=== PATIENT | male | born 1955 | race Caucasian/White ===

== ENCOUNTER 2018-10-29 21:16 | Inpatient (IN) | END 2018-11-04 16:00 | disposition home or self-care (01) | DRG 291 ==

== ENCOUNTER 2019-01-08 21:37 | Inpatient (IN) | payer MEDICARE, OTHER ==
[~2019-01-08] VITALS: Ht 188 cm; Wt 74.1 kg
[~2019-01-08 21:37] MED LIST: AMLO2.5T78 PO; ASPI-817 PO; ATOR-2 PO; Accu-Chek XX; CARV25TA79 PO; HYDR-3672 PO; IPRA3AMP29 HHN; ISOS10TA2 PO; NOVO3I SC; Nicotine (14 Mg/24 Hr) TRANSDERM; PANT40TA4 PO; TICA90TA PO
[2019-01-08] MEDS ORDERED: NITROGLYCERIN 50 MG/D5W (PMX) 250 ML IV STA (21:42)
[2019-01-08] MEDS ORDERED: FUROSEMIDE 40 MG INJ IV STA (21:42)
--- NOTE | 2019-01-08 23:27 | HP ---
Date/Time of Note Date/Time of Note DATE: 01/08/19 TIME: 23:18 Assessment/Plan VTE Prophylaxis SCD applied (from Nsg): Yes Pharmacological prophylaxis: LMWH Lines/Catheters IV Catheter Type (from Nrsg): Saline Lock Central line still needed: No Urinary Cath still in place: No Reason Cath still needed: urinary retention Assessment/Plan Assessment/Plan 1. Pulmonary edema- IHD angina; s/p acute stemi; V-fib cardiac arrest: s/p shock, amiodarone and epinephrine in the field before ROSC-PTCA with stenting of mid LCx 2. ZBIGNIEW -IV ( Hx of contrast use received for cardiac cath .Judiciouse fluid management. Creatinine decreased from 1.9 to 2.6 3. Severe lactic acidosis with the hx of elevation and now the level is 7: Secondary to copd exacerbation, uti. 4. IHD angina; s/p acute stemi; V-fib cardiac arrest: 06/2018;s/p cardiogenic shock, amiodarone and epinephrine in the field before ROSC-PTCA with stenting of mid LCxS/p intubation for cardiac arrest and respiratory failure and successful extubation 5. Hypertension: Continue nitro drip and BP meds. Adjust as needed 6. COPD- history of heavy smoking and current smoking a pack/day. nicotine addiction. 7. S/P episode of pulmonary edema 07/23/18 at about 4pm with resuscitative measures(iv lasix,02; BIPAP,solumedrol) improved. His d-dimer was elevated too. Today's hyperglycemia is a result of yesterdays solumedrol injection. 8.Dyslipidemia 9.Anoxic encephalopathy 10.Aspiration pneumonia? 11.BPH 12.Liver cirrhosis(alcoholic). 13.PAD with the hx of stenting of arteries of extremities 14.ED 15.ATN with creatinine level of more than 6; came down to 2.6; the last one as outpatient 1,9 in the office 3 sdays ago. decrease of creatinine 16.Constipation 17.Liver cirrhosis, probably alcoholic 18.Memory impairment 19.S/P icd implantation on left s/c area. 20.Right more than pleural effusion. Planned thoracentesis. 21. Incomplete data. Result Diagram: 01/08/19214001/08/192140 Results 24hrs Laboratory Tests Test 01/08/19 21:41 01/08/19 21:42 01/08/19 21:46 White Blood Count 12.6 #H Red Blood Count 3.90 L Hemoglobin 12.1 L Hematocrit 39.6 L Mean Corpuscular Volume 101.5 H Mean Corpuscular Hemoglobin 31.0 Mean Corpuscular 30.6 L Hemoglobin Concent Red Cell Distribution Width 14.1 Platelet Count 314 # Mean Platelet Volume 10.2 Immature Granulocytes % 0.600 H Neutrophils % 61.2 Lymphocytes % 27.3 Monocytes % 7.4 Eosinophils % 2.6 Basophils % 0.9 Nucleated Red Blood Cells % 0.0 Immature Granulocytes # 0.080 H Neutrophils # 7.7 H Lymphocytes # 3.4 H Monocytes # 0.9 Eosinophils # 0.3 Basophils # 0.1 Nucleated Red Blood Cells # 0.0 Prothrombin Time 12.8 Prothrombin Time Ratio 1.0 INR International 0.95 Normalized Ratio Activated 26.3 Partial Thromboplast Time Sodium Level 143 Potassium Level 4.7 Chloride Level 106 Carbon Dioxide Level 19 L Anion Gap 18 H Blood Urea Nitrogen 31 H Creatinine 2.65 H Est Glomerular Filtrat 24 L Rate mL/min Glucose Level 237 H Calcium Level 9.9 Total Bilirubin 0.3 Direct Bilirubin 0.00 Indirect Bilirubin 0.3 Aspartate Amino 26 Transf (AST/SGOT) Alanine 36 Aminotransferase (ALT/SGPT) Alkaline Phosphatase 259 H Troponin I 0.074 B-Type Natriuretic Peptide 4920 H Total Protein 7.1 Albumin 4.1 Globulin 3.00 Albumin/Globulin Ratio 1.36 Ethyl Alcohol Level < 10.0 H Blood Gas Specimen Source Blood arterial Arterial Blood Date Drawn 01/08/2019 10:50:13 PM Arterial Blood pH 7.362 (Temp corrected) Arterial Blood pCO2 38.0 (Temp correct) Arterial Blood pO2 277.5 H (Temp corrected) Arterial Blood HCO3 21.1 L Arterial Blood Base Excess -3.9 L Arterial Blood 99.2 H Oxygen Saturation Troy Test ACCEPTAB Arterial Blood Gas Right Radial Puncture Site Arterial 0.3 Blood Carboxyhemoglobin Arterial Blood 0.3 Methemoglobin Blood Gas A-a O2 36.3 H Differential Oxyhemoglobin Percent 98.6 Blood Gas Temperature 37.0 Blood Gas Respiration Rate 16.0 Blood Gas Actual 22 Respiration Rate Blood Gas Modality MASK - BIPAP FiO2 50.0 Blood Gas Pressure Support 10 Blood Gas IPAP/EPAP Ratio 15/ Blood Gas Notified Whom KM Blood Gas Notified Time 01/08/2019 11:04:02 PM POC Venous Lactate 7.1 *H HPI/ROS Admit Date/Time Admit Date/Time severe sob. ROS Subjective hx not possible: pt critical, other (getting tired even when talking.) Constitutional: diaphoresis; No no complaints, No improved, No chills, No disoriented, No fatigue, No febrile, No nausea, No poor po, No weight change, No other PMH/Family/Social Past Medical History Medical History: angina, colitis, congestive heart failure, coronary artery disease, diabetes, diverticulitis, GERD, GI bleed, high cholesterol, hypertension, irritable bowel syndrome, pancreatitis, peptic ulcer disease, urinary tract infection Medications Current Medications Nitroglycerin/ Dextrose 250 ml @ 12 mls/hr ONCE STAT IV Last administered on 01/08/19at 21:56; Admin Dose 12 MLS/HR; Start 01/08/19 at 21:42; Stop 01/09/19 at 18:31 Coded Allergies: No Known Allergy (Unverified , 01/08/19) Past Surgical History Past Surgical Hx: angioplasty, other (s/p icd implantation.) Family History Significant Family History: COPD, diabetes Social History Alcohol Use: occasionally Smoking Status: Current every day smoker Drug Use: none Exam/Review of Systems Vital Signs Vitals Vital Signs Date Temp Pulse Resp B/P (MAP) Pulse Ox O2 O2 Flow FiO2 Time Delivery Rate 01/08/19 68 100 80 23:03 01/08/19 18 161/89 Room Air 23:00 (113) 01/08/19 96.7 21:49 Exam Constitutional: alert, oriented, well developed, distress, frail; No non-verbal, No other Psych: anxiety, confusion; No no complaints, No nl mood/affect, No depression, No suicidal, No other Head: normocephalic, atraumatic; No lacerations, No hematomas, No other Eyes: EOMI, nl lids, PERRL; No nl conjunctiva, No nl sclera, No icteric, No fundi, disc, No other ENMT: nl nasal mucosa & septum, mucosa pink and moist; No nl external ears & nose, No nl lips & teeth, No intubated, No tympanic membranes, No other Neck: jvd, bruits, nuchal rigidity; No supple, No non-tender, No masses, No thyromegaly, No other Respiratory: normal air movement, congested cough, crackles/rales, diminished breath sounds Cardiovascular: nl pulses, bruits, jugular venous distention (JVD), murmurs/extra sounds, systolic murmur, other (s/p left sided icd implantation.); No regular rate and rhythm, No diastolic murmur, No edema, No gallop, No irregular rhythm, No rub, No S3, No S4 Gastrointestinal: soft, bowel sounds, distended, hepatomegaly; No nl liver, spleen, No non-tender, No ascites, No firm, No mass, No rebound or guarding, No splenomegaly, No surgical scars, No tender, No other Genitourinary - Male: nl penis, nl scrotum; No CVA tenderness, No discharge, No other Musculoskeletal: joint tenderness, muscle tone, muscle weakness; No nl extremities to inspection, No nl gait and stance, No range of motion, No spine non-tender, No swelling, No other Extremities: normal pulses; No calf tenderness, No cyanosis, No clubbing, No edema, No pitting pedal edema, No palpable cord, No tenderness, No other ELBERT DIANA MD Jan 08, 2019 23:27
[2019-01-08] MEDS ORDERED: AMPICILLIN/SULB 1.5GM/NS (PMX) 50 ML IVPB SCH (23:30)
[2019-01-09] VITALS (8 sets, daily range): BP systolic 126–156; BP diastolic 60–72; PULSE 61–72; RESP 19; Ht 188 cm; Wt 74.1 kg
[2019-01-09] MEDS ORDERED: NICOTINE (14 MG/24 HR) PATCH TRANSDERM ONE
[2019-01-09] MEDS ORDERED: DEXTROSE 50% 50 ML SYRINGE IV PRN ×2 (00:30)
[2019-01-09] MEDS ORDERED: GLUCAGON 1 MG INJ IM PRN (00:30)
[2019-01-09] MEDS ORDERED: GLUCOSE GEL 15 GRAM TUBE PO PRN ×2 (00:30)
[2019-01-09] MEDS ORDERED: GLUCOSE GEL 15 GRAM TUBE BUCCAL PRN (00:30)
[2019-01-09] MEDS: ALBUTEROL/IPRATROPIUM (NEB) 3 ML AMP HHN SCH ×3 (00:30→20:28)
[2019-01-09] MEDS: ENOXAPARIN 40 MG/0.4 ML SYG SC SCH (00:46)
[2019-01-09] MEDS ORDERED: ATORVASTATIN 80 MG TAB PO ONE (01:00)
--- NOTE | 2019-01-09 03:31 | ERD ---
ER Documentation Chief Complaint Chief Complaint BIB RA from home for respiratory distress HPI This is a 63-year-old male brought in by rescue from home for respiratory distress. Apparently at 6 PM he was in his normal state of health and then started developing shortness of breath. Over the course of 2 hours he became severely worse. Patient was diaphoretic. He has a history of cardiac disease but denies any chest pain. Recent STEMI in the past 6 months. No nausea no vomiting no fevers no chills. Does have orthopnea and positive for dyspnea on exertion as well. ROS All systems reviewed and are negative except as per history of present illness. Medications Home Meds Active Scripts Insulin Aspart* (Novolog Insulin Pen*) 100 Unit/Ml Soln, 0 UNIT SC WITH MEALS BEDTIME for 30 Days, #10 Prov:ELBERT DIANA MD 07/30/18 Pantoprazole* (Pantoprazole*) 40 Mg Tablet., 40 MG PO DAILY@06 for 30 Days, #30 Prov:ELBERT DIANA MD 07/30/18 [Accu-Chek] 1 EA EA No Conflict Check, 1 EA XX 02 for 30 Days, #90 Prov:ELBERT DIANA MD 07/30/18 Aspirin* (Aspirin* EC) 81 Mg Tablet., 81 MG PO DAILY for 30 Days, #30 Prov:ELBERT DIANA MD 07/30/18 Isosorbide Dinitrate* (Isordil*) 10 Mg Tablet, 30 MG PO TID for 30 Days, #30 TAB Prov:ELBERT DIANA MD 07/30/18 Hydralazine Hcl* (Apresoline*) 50 Mg Tab, 100 MG PO TID for 30 Days, #60 TAB Prov:ELBERT DIANA MD 07/30/18 Carvedilol* (Carvedilol*) 25 Mg Tablet, 50 MG PO BID for 30 Days, #60 TAB Prov:ELBERT DIANA MD 07/30/18 Atorvastatin* (Atorvastatin*) 80 Mg Tablet, 80 MG PO DAILY@21 for 30 Days, #60 TAB Prov:ELBERT DIANA MD 07/30/18 Amlodipine Besylate* (Amlodipine Besylate*) 2.5 Mg Tablet, 2.5 MG PO DAILY for 30 Days, #60 TAB Prov:ELBERT DIANA MD 07/30/18 Ticagrelor* (Brilinta*) 90 Mg Tablet, 90 MG PO BID for 30 Days, #30 TAB Prov:ELBERT DIANA MD 07/30/18 [Nicotine (14 Mg/24 Hr)] 1 PATCH PATCH No Conflict Check, 1 PATCH TRANSDERM DAILY for 30 Days, #30 Prov:ELBERT DIANA MD 07/30/18 Ipratropium-Albuterol (Ipratropium-Albuterol) 0.5-3 Mg/3 Ml Ampul.neb, 3 ML HHN Q6HWA RESP THERAPY for 30 Days, #90 Prov:ELBERT DIANA MD 07/30/18 Allergies Allergies: Coded Allergies: No Known Allergy (Unverified , 01/08/19) PMhx/Soc History of Surgery: Yes (angioplasty in last january) Anesthesia Reaction: No Hx Neurological Disorder: No Hx Respiratory Disorders: Yes Hx Cardiac Disorders: Yes (htn chf mi) Hx Psychiatric Problems: No Hx Miscellaneous Medical Probl: No Hx Alcohol Use: Yes Hx Substance Use: No Hx Tobacco Use: No Smoking Status: Current every day smoker Physical Exam Vitals Vital Signs Date Temp Pulse Resp B/P (MAP) Pulse Ox O2 O2 Flow FiO2 Time Delivery Rate 01/09/19 63 16 151/92 99 Room Air 00:30 (111) BIPAP 01/08/19 68 16 153/90 98 BIPAP 23:30 (111) 01/08/19 68 100 80 23:03 01/08/19 70 18 161/89 100 Room Air 23:00 (113) 01/08/19 78 26 193/122 100 Room Air 22:30 (145) 01/08/19 88 26 193/129 100 BIPAP 22:21 (150) 01/08/19 85 30 224/134 100 BIPAP 22:00 (164) 01/08/19 96.7 84 25 93 21:49 01/08/19 Non 21:49 Rebreather 01/08/19 86 92 80 21:40 Physical Exam Const: No acute distress Head: Atraumatic Eyes: Normal Conjunctiva ENT: Normal External Ears, Nose and Mouth. Neck: Full range of motion. No meningismus. Resp: Clear to auscultation bilaterally Cardio: Regular rate and rhythm, no murmurs Abd: Soft, non tender, non distended. Normal bowel sounds Skin: No petechiae or rashes Back: No midline or flank tenderness Ext: No cyanosis, or edema Neur: Awake and alert Psych: Normal Mood and Affect Result Diagram: 01/08/19214001/08/192140 Results 24 hrs Laboratory Tests Test 01/08/19 21:41 01/08/19 21:42 01/08/19 21:46 01/09/19 00:00 White Blood 12.6 10^3/ul Count Red Blood Count 3.90 10^6/ul Hemoglobin 12.1 g/dl Hematocrit 39.6 % Mean Corpuscular 101.5 fl Volume Mean Corpuscular 31.0 pg Hemoglobin Mean Corpuscular 30.6 g/dl Hemoglobin Sylvia nt Red Cell 14.1 % Distribution Width Platelet Count 314 10^3/UL Mean Platelet 10.2 fl Volume Immature 0.600 % Granulocytes % Neutrophils % 61.2 % Lymphocytes % 27.3 % Monocytes % 7.4 % Eosinophils % 2.6 % Basophils % 0.9 % Nucleated Red 0.0 /100WBC Blood Cells % Immature 0.080 10^3/ul Granulocytes # Neutrophils # 7.7 10^3/ul Lymphocytes # 3.4 10^3/ul Monocytes # 0.9 10^3/ul Eosinophils # 0.3 10^3/ul Basophils # 0.1 10^3/ul Nucleated Red 0.0 10^3/ul Blood Cells # Prothrombin Time 12.8 Sec Prothrombin Time 1.0 Ratio INR 0.95 International Normalized Ratio Activated 26.3 Sec Partial Thrombop last Time Sodium Level 143 mmol/L Potassium Level 4.7 mmol/L Chloride Level 106 mmol/L Carbon Dioxide 19 mmol/L Level Anion Gap 18 Blood Urea 31 mg/dl Nitrogen Creatinine 2.65 mg/dl Est Glomerular 24 mL/min Filtrat Rate mL/min Glucose Level 237 mg/dl Calcium Level 9.9 mg/dl Magnesium Level 2.1 mg/dl Iron Level 71 ug/dl Total Iron 246 ug/dl Binding Capacity Percent Iron 29 % SAT Saturation Total Bilirubin 0.3 mg/dl Direct Bilirubin 0.00 mg/dl Indirect 0.3 mg/dl Bilirubin Aspartate Amino 26 IU/L Transf (AST/SGOT ) Alanine 36 IU/L Aminotransferase (ALT/SGPT) Alkaline 259 IU/L Phosphatase Troponin I 0.074 ng/ml B-Type 4920 PG/ML Natriuretic Peptide Total Protein 7.1 g/dl Albumin 4.1 g/dl Globulin 3.00 g/dl Albumin/Globulin 1.36 Ratio Amylase Level < 30 U/L Lipase 109 U/L Thyroid 1.330 MIU/L Stimulating Hormone (TSH) Ethyl Alcohol < 10.0 mg/dl Level Blood Gas Blood arterial Specimen Source Arterial Blood 01/08/2019 10:50: Date Drawn 13 PM Arterial Blood 7.362 pH (Temp corrected) Arterial Blood 38.0 mmhg pCO2 (Temp correct) Arterial Blood 277.5 mmHG pO2 (Temp corrected) Arterial Blood 21.1 mmol/L HCO3 Arterial Blood -3.9 mmol/L Base Excess Arterial Blood 99.2 mmHG Oxygen Saturatio n Troy Test ACCEPTAB Arterial Blood Right Radial Gas Puncture Site Arterial 0.3 % Blood Carboxyhem oglobin Arterial Blood 0.3 % Methemoglobin Blood Gas A-a O2 36.3 mmHg Differential Oxyhemoglobin 98.6 % Percent Blood Gas 37.0 C Temperature Blood Gas 16.0 Respiration Rate Blood Gas Actual 22 Respiration Rate Blood Gas MASK - BIPAP Modality FiO2 50.0 % Blood Gas 10 Pressure Support Blood Gas 15/5 IPAP/EPAP Ratio Blood Gas Notified Whom Blood Gas 01/08/2019 11:04: Notified Time 02 PM POC Venous 7.1 mmol/L 1.3 mmol/L Lactate Test 01/09/19 03:00 POC Venous 1.4 mmol/L Lactate Current Medications Medications Dose Sig/Constance Start Time Status Last (Trade) Ordered Route PRN Stop Time Admin Dose Reason Admin 250 ml @ ONCE STAT 01/08/19 01/08/19 Nitroglycerin 12 mls/hr IV 21:42 21:56 / Dextrose 01/09/19 18:31 Furosemide 80 mg ONCE STAT 01/08/19 DC 01/08/19 (Lasix) IV 21:42 21:56 01/08/19 21:52 Albuterol/ 3 ml Q6H RESP 01/09/19 Ipratropium THERAPY HHN 00:30 (Duoneb) Ampicillin 50 ml @ Q8 IVPB 01/08/19 01/09/19 Sodium/ 100 mls/hr 23:30 00:28 Sulbactam Sodium Amlodipine 2.5 mg DAILY PO 01/09/19 Besylate 09:00 (Norvasc) Aspirin 81 mg DAILY PO 01/09/19 (Halfprin) 09:00 80 mg DAILY@21 01/09/19 Atorvastatin PO 21:00 Calcium (Lipitor) Carvedilol 50 mg BID PO 01/09/19 (Coreg) 00:00 Hydralazine 100 mg TID PO 01/09/19 HCl 09:00 (Apresoline) Insulin WITH MEALS 01/09/19 Aspart BEDTIME SC 08:00 (Novolog Insulin Pen) 40 mg DAILY@06 01/09/19 Pantoprazole PO 06:00 (Protonix Tab) Ticagrelor 90 mg BID PO 01/09/19 (Brilinta) 09:00 Nicotine 1 patch ONCE ONCE 01/09/19 DC (Nicoderm 14 TRANSDERM 00:00 Mg/ 24hr) 01/09/19 00:10 80 mg DAILY ONCE 01/09/19 DC 01/09/19 Atorvastatin PO 01:00 02:44 Calcium 01/09/19 01:01 (Lipitor) Enoxaparin 40 mg DAILY SC 01/09/19 01/09/19 Sodium 00:00 00:46 (Lovenox) 1 ea NOTE XX 01/09/19 Miscellaneous 00:30 Information Glucose 15 gm Q15M PRN 01/09/19 (Glutose) PO DECREASED 00:30 GLUCOSE Glucose 22.5 gm Q15M PRN 01/09/19 (Glutose) PO DECREASED 00:30 GLUCOSE Dextrose 25 ml Q15M PRN 01/09/19 (D50w IV DECREASED 00:30 Syringe) GLUCOSE Dextrose 50 ml Q15M PRN 01/09/19 (D50w IV DECREASED 00:30 Syringe) GLUCOSE Glucagon 1 mg Q15M PRN 01/09/19 (Glucagen) IM DECREASED 00:30 GLUCOSE Glucose 15 gm Q15M PRN 01/09/19 (Glutose) BUCCAL 00:30 DECREASED GLUCOSE Insulin 5 unit WITH MEALS 01/09/19 Aspart SC 08:00 (Novolog Insulin Pen) Procedures/MDM EKG: Rate/Rhythm: [Normal Sinus Rhythm] QRS, ST, T-waves: [No changes consistent w/ acute ischemia] Impression: [No evidence of ischemia or arrhythmia] Chest X-ray 1V Interpreted by me: Soft Tissue: No acute abnormalities Bones: No acute abnormalities Mediastinum/Cardiac Silhouette/Lungs: Cardiomegaly with increased interstitial fluid markings. Impression: acute pulmonary edema Emergency department course course: Patient seen and evaluated by ER MD immediately placed on BiPAP. Intravenous access established. Start on nitroglycerin drip and given Lasix. Patient with mild improvement Critical Care: Time: 55 minutes, independent of any separately billable procedural time Treatments/Evaluations: Close monitoring and treatment of unstable vital signs, cardiorespiratory, and neurologic status, while maintaining tight balance of fluid, respiratory, and cardiac interventions. Medical decision making: Patient's heart failure symptoms is concerning for acute decompensation and will require inpatient workup and monitoring. Further w/u for ischemia, arrhythmia, PE or dissection will be deferred to the inpatient team. Accepting Care Team: Current data and ongoing care discussed. Time: 1 AM Primary Provider: Dr. Fountain Consulting: [XOXOXO] Outstanding Data: none Departure Diagnosis: Primary Impression: Pulmonary edema Chronicity: acute Qualified Codes: J81.0 - Acute pulmonary edema Condition: Critical SINAI ANGLIN Jan 09, 2019 03:31
[2019-01-09] MEDS ORDERED: ICOS1CAP PO (07:44)
[2019-01-09] MEDS ORDERED: ROSU40TA35 PO (07:45)
[2019-01-09] MEDS ORDERED: LIPA1CAP6 PO (07:45)
[2019-01-09] MEDS ORDERED: PROP20TA4 PO (07:46)
[2019-01-09] MEDS ORDERED: BUME1TAB PO (07:47)
[2019-01-09] MEDS ORDERED: IBUP-1542 PO (07:47)
[2019-01-09] MEDS ORDERED: AMIT25TA9 PO (07:48)
[2019-01-09] MEDS ORDERED: LOSA1TAB25 PO (07:48)
[2019-01-09] MEDS ORDERED: GABA300C16 PO (07:48)
[2019-01-09] MEDS ORDERED: LINA1TAB7 PO (07:49)
[2019-01-09] MEDS ORDERED: DAPA5TAB PO (07:49)
[2019-01-09] MEDS ORDERED: DULO60CA59 PO (07:49)
[2019-01-09] MEDS ORDERED: EZET10TA31 PO (07:50)
[2019-01-09] MEDS ORDERED: SPIR25TA PO (07:50)
[2019-01-09] MEDS ORDERED: FLUT1BLS3 IH (07:50)
[2019-01-09] MEDS ORDERED: ISOS10TA2 PO (07:51)
[2019-01-09] MEDS ORDERED: CARV25TA79 PO (07:51)
[2019-01-09] MEDS ORDERED: NOVO3I SC (07:51)
[2019-01-09] MEDS ORDERED: AMLO2.5T78 PO (07:51)
[2019-01-09] MEDS ORDERED: CILO100T PO (07:52)
[2019-01-09] MEDS ORDERED: TICA90TA PO (07:52)
[2019-01-09] MEDS ORDERED: HYDR-3672 PO (07:53)
[2019-01-09] MEDS ORDERED: ASPI-817 PO (07:53)
[2019-01-09] MEDS ORDERED: PANT40TA4 PO (07:53)
[2019-01-09] MEDS ORDERED: ATOR-2 PO (07:53)
[2019-01-09] MEDS ORDERED: CLOP75TA27 PO (07:54)
[2019-01-09] MEDS ORDERED: AMIO200T4 PO (07:54)
[2019-01-09] MEDS: INSULIN ASPART [NOVOLOG] 3 ML PEN SC SCH ×7 (08:00→20:50)
[2019-01-09] MEDS ORDERED: FUROSEMIDE 40 MG INJ IV ONE (09:00)
[2019-01-09] MEDS ORDERED: FUROSEMIDE 40 MG INJ IV SCH (09:00)
[2019-01-09] MEDS ORDERED: TICAGRELOR 90 MG TABLET PO SCH (09:00)
--- NOTE | 2019-01-09 09:05 | CONS ---
DATE OF ADMISSION: 01/08/2019 DATE OF CONSULTATION: 01/09/2019 NEPHROLOGY CONSULTATION REASON FOR CONSULTATION: Acute kidney injury. PHYSICIAN REQUESTING CONSULT: Dr. Diana. HISTORY OF PRESENT ILLNESS: This is a 63-year-old male with a past medical history of hypertension, history of diabetes, history of AFib, history of coronary artery disease, history of reactive airway disease, history of CKD with a previous baseline creatinine around 2.5 to 3.0 mg/dL who presents to [facility] with respiratory distress and shortness of breath. The patient state s over the last few days he has been developing increased shortness of breath and diaphoretic. As a result, he came into the emergency room. Upon arrival, patient had a chest x-ray which showed findin gs of central pulmonary vascular congestion, perihilar and lower lobe infiltrates, pleural effusion a nd cardiomegaly. In the emergency room, the patient was also noted to be in hypertensive urgency wit h systolic pressures greater than 200. The patient was given diuretic therapy, placed on nitroglycer in drip. The patient was also started on antibiotic therapy. In terms of patient's renal history, the patient has underlying CKD with previous baseline creatinine around 2.5 to 3.0 mg/dL. Currently, the patient denies any hemoptysis, hematemesis or hematochezia. PAST MEDICAL HISTORY: As stated above, history of CKD, history of hypertension, history of coronary artery disease, history of BPH, peripheral arterial disease, COPD. PAST SURGICAL HISTORY: Status post cardiac catheterization. FAMILY HISTORY: No family history of kidney disease. SOCIAL HISTORY: Positive tobacco use. ALLERGIES: NONE. MEDICATIONS: Have been reviewed. REVIEW OF SYSTEMS: A 14-point review of systems conducted. Pertinent positives stated in HPI, other troy negative. PHYSICAL EXAMINATION: VITAL SIGNS: Blood pressure is 165/82, respirations 16, pulse 72, temperature 98.6. HEENT: Head is normocephalic. Pupils are reactive to light. NECK: Supple. HEART: Regular rate. LUNGS: Show diminished breath sounds at the base. Positive rhonchi. ABDOMEN: Soft, nontender to palpation without rebound or guarding. EXTREMITIES: Negative for clubbing, cyanosis. Trace edema. DERMATOLOGIC: No rashes. MUSCULOSKELETAL: No joint effusion. NEUROLOGIC: No focal deficits. LABORATORY DATA: Shows white count 10.0, hemoglobin 10.7, platelet count is 237. Sodium is 142, pot assium 4.2, chloride 103, BUN 36, creatinine 2.72. Lactic acid is 0.8. BNP 4900. ASSESSMENT AND PLAN: This is a 63-year-old male who presents with: 1. Nonoliguric acute kidney injury on top of chronic kidney disease stage IV with previous baseline creatinine between 2.5 to 3.0 mg/dL. Etiology of current acute kidney injury is secondary to hemodyn amics, questionable cardiorenal syndrome. The possibility of tubular injury is a consideration. Lefty n at this point is to check a UA with microanalysis. Will check urine electrolytes. Would continue diuretic therapy in the setting of decompensated heart failure. Otherwise, continue current treatmen t plan, supportive care, renally dose all meds. 2. Hypertensive urgency. In part due to increased intravascular volume. Continue diuretic regimen. Continue current blood pressure regimen. Wean off nitroglycerin drip. Will continue to monitor cl osely. 3. Anemia. Monitor hemoglobin and hematocrit levels. 4. Mineral bone disorder. Monitor calcium and phosphorus levels. 5. Decompensated heart failure. The patient remains volume overloaded. Continue aggressive diureti c therapy, monitor I's and O's and electrolytes closely. Would also rule out acute coronary syndrome . Check serial troponins. 6. Acute hypoxemic respiratory failure secondary to chronic obstructive pulmonary disease exacerbati on and acute heart failure. Continue medical management. Continue nebulizers, continue diuretic the rapy, monitor closely. 7. Coronary artery disease. Continue current treatment plan. 8. Dyslipidemia. Continue statin therapy. 9. Diabetes. Continue current insulin regimen. 10. SIRS, possible pneumonia. Continue current antibiotic regimen. Follow up cultures. 11. History of ETOH use with liver disease. Continue to monitor closely. Thank you, Dr. Diana, for this interesting consult. It will be a pleasure to follow the patient with you throughout the hospital course. Dictated By: LILY VASQUEZ DO NR/NTS Conf#: [id number] DID#: [id number] CC: ELBERT DIANA MD;*EndCC*
--- NOTE | 2019-01-09 09:32 | CONS ---
DATE OF ADMISSION: 01/08/2019 DATE OF CONSULTATION: 01/09/2019 TYPE OF CONSULTATION: Infectious disease. REASON FOR CONSULTATION: Antibiotic management. HISTORY OF PRESENT ILLNESS: Cooper Dominique is a 63-year-old Yi Pakistani male who comes in by ambulance for respiratory distress. Patient was brought in from home in respiratory distress. He wa s in his usual state of health until 6:00 p.m. last night when he developed shortness of breath and b ecame severely worse and diaphoretic over the next 2 hours. He has a history of cardiac disease, but denies chest pain. Recent STEMI 6 months ago. PAST SURGICAL HISTORY: He had an angioplasty last January. He has a history of hypertension, congesti ve heart failure and as noted, NE. PAST MEDICAL HISTORY: As outlined. FAMILY HISTORY: Noncontributory. SOCIAL HISTORY: He does drink. He is a current every day smoker. He does not abuse drugs. ALLERGIES: None to penicillin, sulfa or foods. MEDICATIONS: Per chart. REVIEW OF SYSTEMS: As per HPI. ANCILLARY LABORATORY DATA: On admission, his white count was 12.6, H and H of 12.1 and 39.6, platele t count 314,000. BUN and creatinine 31/2.65, glucose random 237. IMPRESSION AND PLAN: The patient was seen by his primary doctor, Dr. Chirinos who felt he was in pu lmonary edema status post acute STEMI in the past. Acute renal failure with BUN and creatinine 31/2. 65. Patient is hypertensive on nitro drip, chronic obstructive pulmonary disease with heavy smoking history. He has some anoxic encephalopathy, probable liver cirrhosis, alcoholic. PHYSICAL EXAMINATION: GENERAL: He is a well-developed, well-nourished male who is awake, responsive, in no acute distress. VITAL SIGNS: Stable. He is afebrile. SKIN: Without generalized rash. LUNGS: Patient has been intermittently on a BiPAP or nonrebreather. HEENT: Within normal limits. NECK: Supple. LYMPH NODES: None palpable. CHEST: Decreased breath sounds at the bases. HEART: Without murmur or gallop. ABDOMEN: Soft, nontender, without organosplenomegaly or masses. EXTREMITIES: Without cyanosis, clubbing, or edema. RECTAL AND GENITAL: Deferred. NEUROLOGIC: No focal neurological abnormality. The patient was started on Unasyn. HOSPITAL COURSE: Chest x-ray shows cardiomegaly, central pulmonary venous vascular congestion and in terstitial prominence in both lungs, bilateral perihilar and lower lung infiltrates with small pleura l effusions and small to moderate right pleural effusion. As noted, the patient is currently on Unas yn. He had a blood culture x2 and urine culture. We may want to switch him over to meropenem. I will dictate my findings to Dr. Chirinos. Dictated By: APPLE ARSHAD MD, JD/GE Conf#: [id number] DID#: [id number]
[2019-01-09] MEDS: AMLODIPINE 2.5 MG TAB PO SCH (09:51)
[2019-01-09] MEDS: ASPIRIN (EC) 81 MG TAB PO SCH (09:51)
[2019-01-09] MEDS: PANTOPRAZOLE (EC) 40 MG TAB PO SCH (09:51)
--- NOTE | 2019-01-09 09:56 | CONS ---
Assessment/Plan Assessment/Plan Hospital Course (Demo Recall) 63 yo male presented with SOB 1. Liver cirrhosis secondary to alcohol -lfts wnl except alk phos is elevated, neg peres's -CT of abd/pelvis results pending -AFP 2. Acute on chronic renal disease 3. Anemia, acute --pt was on brillinta and asa at home, currently inpatient pt is on ASA and l ovenox 4. SOB with CXR showing central pulmonary vascular congestion, perihilar and lower lobe infiltrates, pleural effusion and cardiomegaly 5. S/P STEMI 6 months ago with stent placement on brillinta and asa at home 6. HTN, CAD, DLD 7. Alcohol abuse -pt states he does not drink alcohol anymore but blood alcohol levels greater than 10. 8. Nicotine dependence 9. COPD 10. Non compliance CT abd 01/09: 1. No intra-abdominal free fluid. No evidence of an inflammatory process within the abdomen or pelvis. 2. Moderate-sized left and large right pleural effusions. Compressive atelectasis in the dependent lung bases. 3. Cardiomegaly. 4. Calcified and ectatic abdominal aorta. Infrarenal aorta with maximal cross- sectional diameter of 2.9 cm. Stented common iliac arteries. 5. Mild diverticulosis of the large bowel. 6. Mildly enlarged prostate gland. Plan: Clear liquid diet, okay to advance as tolerated. AFP PPI Monitor HH and for acute GI bleeding, we will monitor closely Pt examined and plan of care discussed with Dr. Valadez. Thank you for the referral. Consultation Date/Type/Reason Admit Date/Time severe s6b. Date/Time of Note DATE: 01/09/19 TIME: 09:46 Hx of Present Illness 63 yo male with a past medical history of STEMI 6 months ago, hypertension, diabetes, atrial fib on plavix, CAD, reactive airway disease, CKD presents to [facility] ER for SOB which was progressively worsening. When he presented his sbp was in 200s. He was placed on nitroglycerin drip, abx, and diuretics. CXR showed central pulmonary vascular congestion, perihilar and lower lobe infiltrates, pleural effusion and cardiomegaly. Pt denies SOB currently. Denies cough or congestion. Denies chills or fevers. He had weight loss last year with hospital admission but has been gaining it back. Denies chest pain. Denies ab dominal pain, changes in bowel habits and n/v. He denies melena or hematochezia. Neg peres's sign. His abd is distended. CT of abd and pelvis results pending. He denies any edema in extremities, no numbness tingling. Pt states he used to drink alcohol but states he does not now. HIs blood alcohol levels were elevated. LFTs wnl except alk phos is elevated at 249. bun/design agent 36/2.72. Hgb was 12.1 and down to 10.7. WBC were elevated but wnl now. Smokes everyday. Past Medical History Home Meds Reported Medications Amiodarone Hcl* (Amiodarone Hcl*) 200 Mg Tablet, 200 MG PO DAILY, #30 TAB 01/09/19 Clopidogrel Bisulfate (Clopidogrel) 75 Mg Tablet, 75 MG PO DAILY, #30 TAB 01/09/19 Atorvastatin* (Atorvastatin*) 80 Mg Tablet, 80 MG PO QHS, #30 TAB 01/09/19 Pantoprazole* (Pantoprazole*) 40 Mg Tablet.dr, 40 MG PO AC BREAKFAST, TAB 01/09/19 Aspirin* (Aspirin* EC) 81 Mg Tablet.dr, 81 MG PO DAILY, TAB 01/09/19 Hydralazine Hcl* (Apresoline*) 50 Mg Tab, 50 MG PO BID, #120 TAB 01/09/19 Cilostazol* (Cilostazol*) 100 Mg Tablet, 100 MG PO BID, TAB 01/09/19 Ticagrelor* (Brilinta*) 90 Mg Tablet, 90 MG PO Q12, TAB 01/09/19 Insulin Aspart* (Novolog Insulin Pen*) 100 Unit/Ml Soln, 0 SC .SLIDING SCALE AC, EA 01/09/19 Carvedilol* (Carvedilol*) 25 Mg Tablet, 25 MG PO BID, #60 TAB 01/09/19 Amlodipine Besylate* (Amlodipine Besylate*) 2.5 Mg Tablet, 2.5 MG PO DAILY, #30 TAB 01/09/19 Isosorbide Dinitrate* (Isordil*) 10 Mg Tablet, 10 MG PO TID, TAB 01/09/19 Ezetimibe* (Zetia*) 10 Mg Tablet, 10 MG PO HS, TAB 01/09/19 Spironolactone* (Aldactone*) 25 Mg Tablet, 25 MG PO BID, #60 TAB 01/09/19 Fluticasone/Umeclidin/Vilanter (Trelegy Ellipta 100-62.5-25) 1 Each Blst.w.dev, 1 EACH IH DAILY 01/09/19 Dapagliflozin Propanediol (Farxiga) 5 Mg Tablet, 5 MG PO DAILY, #30 TAB 01/09/19 Linagliptin/Metformin HCl (Jentadueto Xr 2.5 mg-1,000 mg) 1 Each Tab.bp.24h, 1 EACH PO BID, TAB 01/09/19 Duloxetine Hcl* (Duloxetine Hcl*) 60 Mg Capsule.dr, 60 MG PO DAILY, #30 CAP 01/09/19 Amitriptyline Hcl* (Amitriptyline Hcl*) 25 Mg Tablet, 25 MG PO QHS, #30 TAB 01/09/19 Losartan-Hydrochlorothiazide (Losartan-HCTZ) 100-25 Mg Tab, 1 TAB PO DAILY, TAB 01/09/19 Gabapentin* (Gabapentin*) 300 Mg Capsule, 300 MG PO TID, #90 CAP 01/09/19 Ibuprofen* (Ibuprofen*) 600 Mg Tablet, 600 MG PO BID PRN for PAIN AND/OR INFLAMMATION, TAB 01/09/19 Bumetanide* (Bumetanide*) 1 Mg Tablet, 1 MG PO DAILY, TAB 01/09/19 Propranolol Hcl* (Propranolol Hcl*) 20 Mg Tablet, 20 MG PO DAILY, TAB 01/09/19 Bcgbqa-Dxdvcbjd-Inybzcr* (Ladarius GUPTA* 24,000) 24,000 L-76,000-120,000 Unit Capsule.dr, 1 CAP PO WITH MEALS, CAP 01/09/19 Rosuvastatin Calcium* (Crestor*) 40 Mg Tablet, 40 MG PO QHS, #30 TAB 01/09/19 Icosapent Ethyl (VASCEPA) 1 Gm Capsule, 1 GM PO QID, CAP 01/09/19 Discontinued Scripts Insulin Aspart* (Novolog Insulin Pen*) 100 Unit/Ml Soln, 0 UNIT SC WITH MEALS BEDTIME for 30 Days, #10 Prov:ELBERT DIANA MD 07/30/18 Pantoprazole* (Pantoprazole*) 40 Mg Tablet., 40 MG PO DAILY@06 for 30 Days, #30 Prov:ELBERT DIANA MD 07/30/18 [Accu-Chek] 1 EA EA No Conflict Check, 1 EA XX 02 for 30 Days, #90 Prov:ELBERT DIANA MD 07/30/18 Aspirin* (Aspirin* EC) 81 Mg Tablet.dr, 81 MG PO DAILY for 30 Days, #30 Prov:ELBERT DIANA MD 07/30/18 Isosorbide Dinitrate* (Isordil*) 10 Mg Tablet, 30 MG PO TID for 30 Days, #30 TAB Prov:ELBERT DIANA MD 07/30/18 Hydralazine Hcl* (Apresoline*) 50 Mg Tab, 100 MG PO TID for 30 Days, #60 TAB Prov:ELBERT DIANA MD 07/30/18 Carvedilol* (Carvedilol*) 25 Mg Tablet, 50 MG PO BID for 30 Days, #60 TAB Prov:ELBERT DIANA MD 07/30/18 Atorvastatin* (Atorvastatin*) 80 Mg Tablet, 80 MG PO DAILY@21 for 30 Days, #60 TAB Prov:ELBERT DIANA MD 07/30/18 Amlodipine Besylate* (Amlodipine Besylate*) 2.5 Mg Tablet, 2.5 MG PO DAILY for 30 Days, #60 TAB Prov:ELBERT DIANA MD 07/30/18 Ticagrelor* (Brilinta*) 90 Mg Tablet, 90 MG PO BID for 30 Days, #30 TAB Prov:ELBERT DIANA MD 07/30/18 [Nicotine (14 Mg/24 Hr)] 1 PATCH PATCH No Conflict Check, 1 PATCH TRANSDERM DAILY for 30 Days, #30 Prov:ELBERT DIANA MD 07/30/18 Ipratropium-Albuterol (Ipratropium-Albuterol) 0.5-3 Mg/3 Ml Ampul.neb, 3 ML HHN Q6HWA RESP THERAPY for 30 Days, #90 Prov:ELBERT DIANA MD 07/30/18 Medications Current Medications Nitroglycerin/ Dextrose 250 ml @ 12 mls/hr ONCE STAT IV Last administered on 01/08/19at 21:56; Admin Dose 12 MLS/HR; Start 01/08/19 at 21:42; Stop 01/09/19 at 18:31 Albuterol/ Ipratropium (Duoneb) 3 ml Q6H RESP THERAPY HHN ; Start 01/09/19 at 00:30 Amlodipine Besylate (Norvasc) 2.5 mg DAILY PO ; Start 01/09/19 at 09:00 Aspirin (Halfprin) 81 mg DAILY PO ; Start 01/09/19 at 09:00 Atorvastatin Calcium (Lipitor) 80 mg DAILY@21 PO ; Start 01/09/19 at 21:00 Carvedilol (Coreg) 50 mg BID PO ; Start 01/09/19 at 00:00 Hydralazine HCl (Apresoline) 100 mg TID PO ; Start 01/09/19 at 09:00 Insulin Aspart (Novolog Insulin Pen) WITH MEALS BEDTIME SC ; Start 01/09/19 at 08:00 Pantoprazole (Protonix Tab) 40 mg DAILY@06 PO ; Start 01/09/19 at 06:00 Ticagrelor (Brilinta) 90 mg BID PO ; Start 01/09/19 at 09:00 Enoxaparin Sodium (Lovenox) 40 mg DAILY SC Last administered on 01/09/19at 00:46; Admin Dose 40 MG; Start 01/09/19 at 00:00 Miscellaneous Information 1 ea NOTE XX ; Start 01/09/19 at 00:30 Glucose (Glutose) 15 gm Q15M PRN PO DECREASED GLUCOSE; Start 01/09/19 at 00:30 Glucose (Glutose) 22.5 gm Q15M PRN PO DECREASED GLUCOSE; Start 01/09/19 at 00:30 Dextrose (D50w Syringe) 25 ml Q15M PRN IV DECREASED GLUCOSE; Start 01/09/19 at 00:30 Dextrose (D50w Syringe) 50 ml Q15M PRN IV DECREASED GLUCOSE; Start 01/09/19 at 00:30 Glucagon (Glucagen) 1 mg Q15M PRN IM DECREASED GLUCOSE; Start 01/09/19 at 00:30 Glucose (Glutose) 15 gm Q15M PRN BUCCAL DECREASED GLUCOSE; Start 01/09/19 at 00:30 Insulin Aspart (Novolog Insulin Pen) 5 unit WITH MEALS SC ; Start 01/09/19 at 08:00 Furosemide (Lasix) 40 mg BID ONCE IV ; Start 01/09/19 at 09:00; Stop 01/09/19 at 09:01; Status UNV Furosemide (Lasix) 40 mg ONCE IV ; Start 01/09/19 at 09:00; Stop 01/09/19 at 2 3:59 Meropenem/Sodium Chloride 50 ml @ 100 mls/hr Q12 IVPB ; Start 01/09/19 at 09:00 Allergies: Coded Allergies: No Known Allergy (Unverified , 01/08/19) Past Surgical History Past Surgical Hx: angioplasty Social History Smoking Status: Current every day smoker Exam/Review of Systems Exam Vitals Vital Signs Date Temp Pulse Resp B/P (MAP) Pulse Ox O2 O2 Flow FiO2 Time Delivery Rate 01/09/19 64 158/94 100 BIPAP 07:57 (115) 01/09/19 16 06:18 01/08/19 80 23:03 01/08/19 96.7 21:49 Constitutional: alert, oriented Psych: no complaints Head: normocephalic Eyes: nl sclera, PERRL ENMT: mucosa pink and moist Respiratory: other (diminshed on upper and lower lobes on right side, ) Cardiovascular: regular rate and rhythm Gastrointestinal: soft, non-tender, distended Musculoskeletal: nl extremities to inspection Neurological: nl mental status, nl speech Results Result Diagram: 01/09/19 0337 01/09/19 0337 Results 24hrs Laboratory Tests Test 01/08/19 21:41 01/08/19 21:42 01/08/19 21:46 01/09/19 00:00 White Blood Count 12.6 #H Red Blood Count 3.90 L Hemoglobin 12.1 L Hematocrit 39.6 L Mean Corpuscular 101.5 H Volume Mean Corpuscular 31.0 Hemoglobin Mean Corpuscular 30.6 L Hemoglobin Concen t Red Cell 14.1 Distribution Width Platelet Count 314 # Mean Platelet 10.2 Volume Immature 0.600 H Granulocytes % Neutrophils % 61.2 Lymphocytes % 27.3 Monocytes % 7.4 Eosinophils % 2.6 Basophils % 0.9 Nucleated Red 0.0 Blood Cells % Immature 0.080 H Granulocytes # Neutrophils # 7.7 H Lymphocytes # 3.4 H Monocytes # 0.9 Eosinophils # 0.3 Basophils # 0.1 Nucleated Red 0.0 Blood Cells # Prothrombin Time 12.8 Prothrombin Time 1.0 Ratio INR International 0.95 Normalized Ratio Activated 26.3 Partial Thrombopl ast Time Sodium Level 143 Potassium Level 4.7 Chloride Level 106 Carbon Dioxide 19 L Level Anion Gap 18 H Blood Urea 31 H Nitrogen Creatinine 2.65 H Est Glomerular 24 L Filtrat Rate mL/min Glucose Level 237 H Calcium Level 9.9 Magnesium Level 2.1 Iron Level 71 Total Iron 246 Binding Capacity Percent Iron 29 Saturation Total Bilirubin 0.3 Direct Bilirubin 0.00 Indirect 0.3 Bilirubin Aspartate Amino 26 Transf (AST/SGOT) Alanine 36 Aminotransferase (ALT/SGPT) Alkaline 259 H Phosphatase Troponin I 0.074 B-Type 4920 H Natriuretic Peptide Total Protein 7.1 Albumin 4.1 Globulin 3.00 Albumin/Globulin 1.36 Ratio Amylase Level < 30 Lipase 109 Thyroid 1.330 Stimulating Hormone (TSH) Ethyl Alcohol < 10.0 H Level Blood Gas Blood arterial Specimen Source Arterial Blood 01/08/2019 10:50: Date Drawn 13 PM Arterial Blood pH 7.362 (Temp corrected) Arterial Blood 38.0 pCO2 (Temp correct) Arterial Blood 277.5 H pO2 (Temp corrected) Arterial Blood 21.1 L HCO3 Arterial Blood -3.9 L Base Excess Arterial Blood 99.2 H Oxygen Saturation Troy Test ACCEPTAB Arterial Blood Right Radial Gas Puncture Site Arterial 0.3 Blood Carboxyhemo globin Arterial Blood 0.3 Methemoglobin Blood Gas A-a O2 36.3 H Differential Oxyhemoglobin 98.6 Percent Blood Gas 37.0 Temperature Blood Gas 16.0 Respiration Rate Blood Gas Actual 22 Respiration Rate Blood Gas MASK - BIPAP Modality FiO2 50.0 Blood Gas 10 Pressure Support Blood Gas 15/5 IPAP/EPAP Ratio Blood Gas Notified Whom Blood Gas 01/08/2019 11:04: Notified Time 02 PM POC Venous 7.1 *H 1.3 Lactate Test 01/09/19 03:00 01/09/19 03:37 POC Venous 1.4 Lactate White Blood Count 10.0 # Red Blood Count 3.37 L Hemoglobin 10.7 L Hematocrit 31.9 L Mean Corpuscular 94.7 Volume Mean Corpuscular 31.8 Hemoglobin Mean Corpuscular 33.5 Hemoglobin Concen t Red Cell 14.2 Distribution Width Platelet Count 237 # Mean Platelet 10.4 Volume Immature 0.600 H Granulocytes % Neutrophils % 80.8 H Lymphocytes % 12.2 L Monocytes % 5.6 Eosinophils % 0.3 Basophils % 0.5 Nucleated Red 0.0 Blood Cells % Immature 0.060 H Granulocytes # Neutrophils # 8.1 H Lymphocytes # 1.2 Monocytes # 0.6 Eosinophils # 0.0 Basophils # 0.1 Nucleated Red 0.0 Blood Cells # Sodium Level 142 Potassium Level 4.4 Chloride Level 103 Carbon Dioxide 25 Level Anion Gap 14 H Blood Urea 36 H Nitrogen Creatinine 2.72 H Est Glomerular 24 L Filtrat Rate mL/min Glucose Level 188 Lactic Acid Level 0.8 Calcium Level 9.3 Total Bilirubin 0.3 Direct Bilirubin 0.00 Indirect 0.3 Bilirubin Aspartate Amino 34 Transf (AST/SGOT) Alanine 52 Aminotransferase (ALT/SGPT) Alkaline 247 H Phosphatase Total Protein 6.7 Albumin 3.7 Globulin 3.00 Albumin/Globulin 1.23 Ratio Medications Medication Current Medications Nitroglycerin/ Dextrose 250 ml @ 12 mls/hr ONCE STAT IV Last administered on 01/08/19at 21:56; Admin Dose 12 MLS/HR; Start 01/08/19 at 21:42; Stop 01/09/19 at 18:31 Albuterol/ Ipratropium (Duoneb) 3 ml Q6H RESP THERAPY HHN ; Start 01/09/19 at 00:30 Amlodipine Besylate (Norvasc) 2.5 mg DAILY PO ; Start 01/09/19 at 09:00 Aspirin (Halfprin) 81 mg DAILY PO ; Start 01/09/19 at 09:00 Atorvastatin Calcium (Lipitor) 80 mg DAILY@21 PO ; Start 01/09/19 at 21:00 Carvedilol (Coreg) 50 mg BID PO ; Start 01/09/19 at 00:00 Hydralazine HCl (Apresoline) 100 mg TID PO ; Start 01/09/19 at 09:00 Insulin Aspart (Novolog Insulin Pen) WITH MEALS BEDTIME SC ; Start 01/09/19 at 08:00 Pantoprazole (Protonix Tab) 40 mg DAILY@06 PO ; Start 01/09/19 at 06:00 Ticagrelor (Brilinta) 90 mg BID PO ; Start 01/09/19 at 09:00 Enoxaparin Sodium (Lovenox) 40 mg DAILY SC Last administered on 01/09/19at 00:46; Admin Dose 40 MG; Start 01/09/19 at 00:00 Miscellaneous Information 1 ea NOTE XX ; Start 01/09/19 at 00:30 Glucose (Glutose) 15 gm Q15M PRN PO DECREASED GLUCOSE; Start 01/09/19 at 00:30 Glucose (Glutose) 22.5 gm Q15M PRN PO DECREASED GLUCOSE; Start 01/09/19 at 00:30 Dextrose (D50w Syringe) 25 ml Q15M PRN IV DECREASED GLUCOSE; Start 01/09/19 at 00:30 Dextrose (D50w Syringe) 50 ml Q15M PRN IV DECREASED GLUCOSE; Start 01/09/19 at 00:30 Glucagon (Glucagen) 1 mg Q15M PRN IM DECREASED GLUCOSE; Start 01/09/19 at 00:30 Glucose (Glutose) 15 gm Q15M PRN BUCCAL DECREASED GLUCOSE; Start 01/09/19 at 00:30 Insulin Aspart (Novolog Insulin Pen) 5 unit WITH MEALS SC ; Start 01/09/19 at 08:00 Furosemide (Lasix) 40 mg BID ONCE IV ; Start 01/09/19 at 09:00; Stop 01/09/19 at 09:01; Status UNV Furosemide (Lasix) 40 mg ONCE IV ; Start 01/09/19 at 09:00; Stop 01/09/19 at 23:59 Meropenem/Sodium Chloride 50 ml @ 100 mls/hr Q12 IVPB ; Start 01/09/19 at 09:00 SIMONE HOWARD Jan 09, 2019 09:56
[2019-01-09] MEDS: MEROPENEM 1 GM/50ML(PMX) 50 ML IVPB SCH ×2 (11:03→20:50)
--- NOTE | 2019-01-09 14:02 | CONS ---
Assessment/Plan Cardiology NYHA: III Heart Failure Type: Acute on Chronic Heart Failure Type: Both Assessment/Plan Hospital Course (Demo Recall) Assessment: Hypertensive urgency - blood pressures now controlled Acute on chronic combined systolic and diastolic heart failure - improved with blood pressure control and diuresis Ischemic cardiomyopathy - LVEF 45% on echocardiogram (October 2018) Coronary artery disease - status post myocardial infarction and ventricular fibrillation arrest, PCI to LCx (June 2018), residual chronic occlusion of RCA BiV ICD - details unknown Acute kidney injury on chronic kidney disease Dyslipidemia Peripheral vascular disease Alcoholic liver cirrhosis Chronic obstructive pulmonary disease Recommendations: -continue diuresis on IV Lasix -continue carvedilol, hydralazine, Imdur, amlodipine -continue aspirin and ticagrelor -continue atorvastatin Consultation Date/Type/Reason Admit Date/Time severe s6b. Type of Consult Cardiology Reason for Consultation congestive heart failure Requesting Provider: ELBERT DIANA MD Date/Time of Note DATE: 01/09/19 TIME: 13:50 Hx of Present Illness The patient is a 63 year-old male who presented with five days of worsening afsaneh rtness of breath. He was noted to have hypertensive urgency and decompensated heart failure. EKG showed sinus rhythm with left bundle branch block. Troponin was within the normal range and BNP was elevated at 4920. He has a history of myocardial infarction and resultant ventricular fibrillation arrest in June 2018. He was found to have and acute occlusion of the left circumflex artery at that time and underwent percutaneous coronary intervention. A chronic occlusion of the right coronary artery was also noted at that time, but not intervened upon. The patient reports having implantation of a cardiac device (appears to be a BiV ICD based on chest x-ray) approximately three months ago. 14 point review of systems negative other than per HPI. Past Medical History Chronic combined systolic and diastolic heart failure Ischemic cardiomyopathy - LVEF 45% on echocardiogram (October 2018) Coronary artery disease - status post myocardial infarction and ventricular fibrillation arrest, PCI to LCx (June 2018), residual chronic occlusion of RCA BiV ICD Hypertension Dyslipidemia Chronic kidney disease Peripheral vascular disease Alcoholic liver cirrhosis Chronic obstructive pulmonary disease Home Meds Reported Medications Amiodarone Hcl* (Amiodarone Hcl*) 200 Mg Tablet, 200 MG PO DAILY, #30 TAB 01/09/19 Clopidogrel Bisulfate (Clopidogrel) 75 Mg Tablet, 75 MG PO DAILY, #30 TAB 01/09/19 Atorvastatin* (Atorvastatin*) 80 Mg Tablet, 80 MG PO QHS, #30 TAB 01/09/19 Pantoprazole* (Pantoprazole*) 40 Mg Tablet.dr, 40 MG PO AC BREAKFAST, TAB 01/09/19 Aspirin* (Aspirin* EC) 81 Mg Tablet.dr, 81 MG PO DAILY, TAB 01/09/19 Hydralazine Hcl* (Apresoline*) 50 Mg Tab, 50 MG PO BID, #120 TAB 01/09/19 Cilostazol* (Cilostazol*) 100 Mg Tablet, 100 MG PO BID, TAB 01/09/19 Ticagrelor* (Brilinta*) 90 Mg Tablet, 90 MG PO Q12, TAB 01/09/19 Insulin Aspart* (Novolog Insulin Pen*) 100 Unit/Ml Soln, 0 SC .SLIDING SCALE AC, EA 01/09/19 Carvedilol* (Carvedilol*) 25 Mg Tablet, 25 MG PO BID, #60 TAB 01/09/19 Amlodipine Besylate* (Amlodipine Besylate*) 2.5 Mg Tablet, 2.5 MG PO DAILY, #30 TAB 01/09/19 Isosorbide Dinitrate* (Isordil*) 10 Mg Tablet, 10 MG PO TID, TAB 01/09/19 Ezetimibe* (Zetia*) 10 Mg Tablet, 10 MG PO HS, TAB 01/09/19 Spironolactone* (Aldactone*) 25 Mg Tablet, 25 MG PO BID, #60 TAB 01/09/19 Fluticasone/Umeclidin/Vilanter (Trelegy Ellipta 100-62.5-25) 1 Each Blst.w.dev, 1 EACH IH DAILY 01/09/19 Dapagliflozin Propanediol (Farxiga) 5 Mg Tablet, 5 MG PO DAILY, #30 TAB 01/09/19 Linagliptin/Metformin HCl (Jentadueto Xr 2.5 mg-1,000 mg) 1 Each Tab.bp.24h, 1 EACH PO BID, TAB 01/09/19 Duloxetine Hcl* (Duloxetine Hcl*) 60 Mg Capsule.dr, 60 MG PO DAILY, #30 CAP 01/09/19 Amitriptyline Hcl* (Amitriptyline Hcl*) 25 Mg Tablet, 25 MG PO QHS, #30 TAB 01/09/19 Losartan-Hydrochlorothiazide (Losartan-HCTZ) 100-25 Mg Tab, 1 TAB PO DAILY, TAB 01/09/19 Gabapentin* (Gabapentin*) 300 Mg Capsule, 300 MG PO TID, #90 CAP 01/09/19 Ibuprofen* (Ibuprofen*) 600 Mg Tablet, 600 MG PO BID PRN for PAIN AND/OR INFLAMMATION, TAB 01/09/19 Bumetanide* (Bumetanide*) 1 Mg Tablet, 1 MG PO DAILY, TAB 01/09/19 Propranolol Hcl* (Propranolol Hcl*) 20 Mg Tablet, 20 MG PO DAILY, TAB 01/09/19 Hdnwoi-Ebcmhqcr-Vfllqlg* (Ladarius GUPTA* 24,000) 24,000 L-76,000-120,000 Unit Capsule.dr, 1 CAP PO WITH MEALS, CAP 01/09/19 Rosuvastatin Calcium* (Crestor*) 40 Mg Tablet, 40 MG PO QHS, #30 TAB 01/09/19 Icosapent Ethyl (VASCEPA) 1 Gm Capsule, 1 GM PO QID, CAP 01/09/19 Discontinued Scripts Insulin Aspart* (Novolog Insulin Pen*) 100 Unit/Ml Soln, 0 UNIT SC WITH MEALS BEDTIME for 30 Days, #10 Prov:ELBERT DIANA MD 07/30/18 Pantoprazole* (Pantoprazole*) 40 Mg Tablet., 40 MG PO DAILY@06 for 30 Days, #30 Prov:ELBERT DIANA MD 07/30/18 [Accu-Chek] 1 EA EA No Conflict Check, 1 EA XX 02 for 30 Days, #90 Prov:ELBERT DIANA MD 07/30/18 Aspirin* (Aspirin* EC) 81 Mg Tablet., 81 MG PO DAILY for 30 Days, #30 Prov:ELBERT DIANA MD 07/30/18 Isosorbide Dinitrate* (Isordil*) 10 Mg Tablet, 30 MG PO TID for 30 Days, #30 TAB Prov:ELBERT DIANA MD 07/30/18 Hydralazine Hcl* (Apresoline*) 50 Mg Tab, 100 MG PO TID for 30 Days, #60 TAB Prov:ELBERT DIANA MD 07/30/18 Carvedilol* (Carvedilol*) 25 Mg Tablet, 50 MG PO BID for 30 Days, #60 TAB Prov:ELBERT DIANA MD 07/30/18 Atorvastatin* (Atorvastatin*) 80 Mg Tablet, 80 MG PO DAILY@21 for 30 Days, #60 TAB Prov:ELBERT DIANA MD 07/30/18 Amlodipine Besylate* (Amlodipine Besylate*) 2.5 Mg Tablet, 2.5 MG PO DAILY for 30 Days, #60 TAB Prov:ELBERT DIANA MD 07/30/18 Ticagrelor* (Brilinta*) 90 Mg Tablet, 90 MG PO BID for 30 Days, #30 TAB Prov:ELBERT DIANA MD 07/30/18 [Nicotine (14 Mg/24 Hr)] 1 PATCH PATCH No Conflict Check, 1 PATCH TRANSDERM DAILY for 30 Days, #30 Prov:ELBERT DIANA MD 07/30/18 Ipratropium-Albuterol (Ipratropium-Albuterol) 0.5-3 Mg/3 Ml Ampul.neb, 3 ML HHN Q6HWA RESP THERAPY for 30 Days, #90 Prov:ELBERT DIANA MD 07/30/18 Medications Current Medications Nitroglycerin/ Dextrose 250 ml @ 12 mls/hr ONCE STAT IV Last administered on 01/08/19at 21:56; Admin Dose 12 MLS/HR; Start 01/08/19 at 21:42; Stop 01/09/19 at 18:31 Albuterol/ Ipratropium (Duoneb) 3 ml Q6H RESP THERAPY HHN ; Start 01/09/19 at 00:30 Amlodipine Besylate (Norvasc) 2.5 mg DAILY PO Last administered on 01/09/19at 09:51; Admin Dose 2.5 MG; Start 01/09/19 at 09:00 Aspirin (Halfprin) 81 mg DAILY PO Last administered on 01/09/19at 09:51; Admin Dose 81 MG; Start 01/09/19 at 09:00 Atorvastatin Calcium (Lipitor) 80 mg DAILY@21 PO ; Start 01/09/19 at 21:00 Carvedilol (Coreg) 50 mg BID PO Last administered on 01/09/19at 09:52; Admin Dose 50 MG; Start 01/09/19 at 00:00 Hydralazine HCl (Apresoline) 100 mg TID PO Last administered on 01/09/19at 09:52; Admin Dose 100 MG; Start 01/09/19 at 09:00 Insulin Aspart (Novolog Insulin Pen) WITH MEALS BEDTIME SC ; Start 01/09/19 at 08:00 Pantoprazole (Protonix Tab) 40 mg DAILY@06 PO Last administered on 01/09/19at 09:51; Admin Dose 40 MG; Start 01/09/19 at 06:00 Ticagrelor (Brilinta) 90 mg BID PO Last administered on 01/09/19at 09:00; Admin Dose 90 MG; Start 01/09/19 at 09:00 Enoxaparin Sodium (Lovenox) 40 mg DAILY SC Last administered on 01/09/19at 00:46; Admin Dose 40 MG; Start 01/09/19 at 00:00 Miscellaneous Information 1 ea NOTE XX ; Start 01/09/19 at 00:30 Glucose (Glutose) 15 gm Q15M PRN PO DECREASED GLUCOSE; Start 01/09/19 at 00:30 Glucose (Glutose) 22.5 gm Q15M PRN PO DECREASED GLUCOSE; Start 01/09/19 at 00:30 Dextrose (D50w Syringe) 25 ml Q15M PRN IV DECREASED GLUCOSE; Start 01/09/19 at 00:30 Dextrose (D50w Syringe) 50 ml Q15M PRN IV DECREASED GLUCOSE; Start 01/09/19 at 00:30 Glucagon (Glucagen) 1 mg Q15M PRN IM DECREASED GLUCOSE; Start 01/09/19 at 00:30 Glucose (Glutose) 15 gm Q15M PRN BUCCAL DECREASED GLUCOSE; Start 01/09/19 at 00:30 Insulin Aspart (Novolog Insulin Pen) 5 unit WITH MEALS SC ; Start 01/09/19 at 08:00 Meropenem/Sodium Chloride 50 ml @ 100 mls/hr Q12 IVPB Last administered on 01/09/19at 11:03; Admin Dose 100 MLS/HR; Start 01/09/19 at 09:00 Furosemide (Lasix) 40 mg BID DIURETICS IV ; Start 01/09/19 at 18:00 Isosorbide Dinitrate (Isordil) 30 mg Q12 PO ; Start 01/09/19 at 21:00 Influenza Virus Vaccine Quadrival (Fluzone) 0.5 ml ONCE ONCE IM* ; Start 01/10/19 at 09:00; Stop 01/10/19 at 09:01 Allergies: Coded Allergies: No Known Allergy (Unverified , 01/08/19) Past Surgical History Past Surgical Hx: angioplasty Social History Smoking Status: Former smoker Exam/Review of Systems Vital Signs Vitals Vital Signs Date Temp Pulse Resp B/P (MAP) Pulse Ox O2 O2 Flow FiO2 Time Delivery Rate 01/09/19 Nasal 3.0 13:38 Cannula 01/09/19 97.7 61 19 135/66 96 12:38 (89) 01/08/19 80 23:03 Exam Constitutional: alert, well developed Psych: no complaints, nl mood/affect Head: normocephalic, atraumatic Eyes: nl conjunctiva, nl lids ENMT: nl external ears & nose, nl nasal mucosa & septum Neck: supple, non-tender Respiratory: clear to auscultation, diminished breath sounds Cardiovascular: regular rate and rhythm Gastrointestinal: soft, non-tender Musculoskeletal: nl extremities to inspection Extremities: No cyanosis, No clubbing, No edema Neurological: nl mental status, nl speech Labs Result Diagram: 01/09/19 0337 01/09/19 0337 Results 24hrs Laboratory Tests Test 01/08/19 21:41 01/08/19 21:42 01/08/19 21:46 01/09/19 00:00 White Blood Count 12.6 #H Red Blood Count 3.90 L Hemoglobin 12.1 L Hematocrit 39.6 L Mean Corpuscular 101.5 H Volume Mean Corpuscular 31.0 Hemoglobin Mean Corpuscular 30.6 L Hemoglobin Concen t Red Cell 14.1 Distribution Width Platelet Count 314 # Mean Platelet 10.2 Volume Immature 0.600 H Granulocytes % Neutrophils % 61.2 Lymphocytes % 27.3 Monocytes % 7.4 Eosinophils % 2.6 Basophils % 0.9 Nucleated Red 0.0 Blood Cells % Immature 0.080 H Granulocytes # Neutrophils # 7.7 H Lymphocytes # 3.4 H Monocytes # 0.9 Eosinophils # 0.3 Basophils # 0.1 Nucleated Red 0.0 Blood Cells # Prothrombin Time 12.8 Prothrombin Time 1.0 Ratio INR International 0.95 Normalized Ratio Activated 26.3 Partial Thrombopl ast Time Sodium Level 143 Potassium Level 4.7 Chloride Level 106 Carbon Dioxide 19 L Level Anion Gap 18 H Blood Urea 31 H Nitrogen Creatinine 2.65 H Est Glomerular 24 L Filtrat Rate mL/min Glucose Level 237 H Calcium Level 9.9 Magnesium Level 2.1 Iron Level 71 Total Iron 246 Binding Capacity Percent Iron 29 Saturation Total Bilirubin 0.3 Direct Bilirubin 0.00 Indirect 0.3 Bilirubin Aspartate Amino 26 Transf (AST/SGOT) Alanine 36 Aminotransferase (ALT/SGPT) Alkaline 259 H Phosphatase Troponin I 0.074 B-Type 4920 H Natriuretic Peptide Total Protein 7.1 Albumin 4.1 Globulin 3.00 Albumin/Globulin 1.36 Ratio Amylase Level < 30 Lipase 109 Thyroid 1.330 Stimulating Hormone (TSH) Ethyl Alcohol < 10.0 H Level Blood Gas Blood arterial Specimen Source Arterial Blood 01/08/2019 10:50: Date Drawn 13 PM Arterial Blood pH 7.362 (Temp corrected) Arterial Blood 38.0 pCO2 (Temp correct) Arterial Blood 277.5 H pO2 (Temp corrected) Arterial Blood 21.1 L HCO3 Arterial Blood -3.9 L Base Excess Arterial Blood 99.2 H Oxygen Saturation [place] Test ACCEPTAB Arterial Blood Right Radial Gas Puncture Site Arterial 0.3 Blood Carboxyhemo globin Arterial Blood 0.3 Methemoglobin Blood Gas A-a O2 36.3 H Differential Oxyhemoglobin 98.6 Percent Blood Gas 37.0 Temperature Blood Gas 16.0 Respiration Rate Blood Gas Actual 22 Respiration Rate Blood Gas MASK - BIPAP Modality FiO2 50.0 Blood Gas 10 Pressure Support Blood Gas 15/5 IPAP/EPAP Ratio Blood Gas Notified Whom Blood Gas 01/08/2019 11:04: Notified Time 02 PM POC Venous 7.1 *H 1.3 Lactate Test 01/09/19 03:00 01/09/19 03:37 POC Venous 1.4 Lactate White Blood Count 10.0 # Red Blood Count 3.37 L Hemoglobin 10.7 L Hematocrit 31.9 L Mean Corpuscular 94.7 Volume Mean Corpuscular 31.8 Hemoglobin Mean Corpuscular 33.5 Hemoglobin Concen t Red Cell 14.2 Distribution Width Platelet Count 237 # Mean Platelet 10.4 Volume Immature 0.600 H Granulocytes % Neutrophils % 80.8 H Lymphocytes % 12.2 L Monocytes % 5.6 Eosinophils % 0.3 Basophils % 0.5 Nucleated Red 0.0 Blood Cells % Immature 0.060 H Granulocytes # Neutrophils # 8.1 H Lymphocytes # 1.2 Monocytes # 0.6 Eosinophils # 0.0 Basophils # 0.1 Nucleated Red 0.0 Blood Cells # Sodium Level 142 Potassium Level 4.4 Chloride Level 103 Carbon Dioxide 25 Level Anion Gap 14 H Blood Urea 36 H Nitrogen Creatinine 2.72 H Est Glomerular 24 L Filtrat Rate mL/min Glucose Level 188 Lactic Acid Level 0.8 Calcium Level 9.3 Total Bilirubin 0.3 Direct Bilirubin 0.00 Indirect 0.3 Bilirubin Aspartate Amino 34 Transf (AST/SGOT) Alanine 52 Aminotransferase (ALT/SGPT) Alkaline 247 H Phosphatase Total Protein 6.7 Albumin 3.7 Globulin 3.00 Albumin/Globulin 1.23 Ratio Alpha Fetoprotein 1.87 Medications Medications Current Medications Nitroglycerin/ Dextrose 250 ml @ 12 mls/hr ONCE STAT IV Last administered on 01/08/19 21:56; Admin Dose 12 MLS/HR; Start 01/08/19 at 21:42; Stop 01/09/19 at 18:31 Albuterol/ Ipratropium (Duoneb) 3 ml Q6H RESP THERAPY HHN ; Start 01/09/19 at 00:30 Amlodipine Besylate (Norvasc) 2.5 mg DAILY PO Last administered on 01/09/19 09:51; Admin Dose 2.5 MG; Start 01/09/19 at 09:00 Aspirin (Halfprin) 81 mg DAILY PO Last administered on 01/09/19 09:51; Admin Dose 81 MG; Start 01/09/19 at 09:00 Atorvastatin Calcium (Lipitor) 80 mg DAILY@21 PO ; Start 01/09/19 at 21:00 Carvedilol (Coreg) 50 mg BID PO Last administered on 01/09/19 09:52; Admin Dose 50 MG; Start 01/09/19 at 00:00 Hydralazine HCl (Apresoline) 100 mg TID PO Last administered on 01/09/19 09:52; Admin Dose 100 MG; Start 01/09/19 at 09:00 Insulin Aspart (Novolog Insulin Pen) WITH MEALS BEDTIME SC ; Start 01/09/19 at 08:00 Pantoprazole (Protonix Tab) 40 mg DAILY@06 PO Last administered on 01/09/19 09:51; Admin Dose 40 MG; Start 01/09/19 at 06:00 Ticagrelor (Brilinta) 90 mg BID PO Last administered on 01/09/19at 09:00; Admin Dose 90 MG; Start 01/09/19 at 09:00 Enoxaparin Sodium (Lovenox) 40 mg DAILY SC Last administered on 01/09/19at 00:46; Admin Dose 40 MG; Start 01/09/19 at 00:00 Miscellaneous Information 1 ea NOTE XX ; Start 01/09/19 at 00:30 Glucose (Glutose) 15 gm Q15M PRN PO DECREASED GLUCOSE; Start 01/09/19 at 00:30 Glucose (Glutose) 22.5 gm Q15M PRN PO DECREASED GLUCOSE; Start 01/09/19 at 00:30 Dextrose (D50w Syringe) 25 ml Q15M PRN IV DECREASED GLUCOSE; Start 01/09/19 at 00:30 Dextrose (D50w Syringe) 50 ml Q15M PRN IV DECREASED GLUCOSE; Start 01/09/19 at 00:30 Glucagon (Glucagen) 1 mg Q15M PRN IM DECREASED GLUCOSE; Start 01/09/19 at 00:30 Glucose (Glutose) 15 gm Q15M PRN BUCCAL DECREASED GLUCOSE; Start 01/09/19 at 00:30 Insulin Aspart (Novolog Insulin Pen) 5 unit WITH MEALS SC ; Start 01/09/19 at 08:00 Meropenem/Sodium Chloride 50 ml @ 100 mls/hr Q12 IVPB Last administered on 01/09/19at 11:03; Admin Dose 100 MLS/HR; Start 01/09/19 at 09:00 Furosemide (Lasix) 40 mg BID DIURETICS IV ; Start 01/09/19 at 18:00 Isosorbide Dinitrate (Isordil) 30 mg Q12 PO ; Start 01/09/19 at 21:00 Influenza Virus Vaccine Quadrival (Fluzone) 0.5 ml ONCE ONCE IM* ; Start 01/10/19 at 09:00; Stop 01/10/19 at 09:01 JOSEF MANN MD Jan 09, 2019 14:01
--- NOTE | 2019-01-09 16:38 | CONS ---
DATE OF ADMISSION: 01/08/2019 DATE OF CONSULTATION: TYPE OF CONSULTATION: Pulmonary. REASON FOR CONSULTATION: Shortness of breath. Thank you, Dr. Diana, for this consultation. HISTORY OF PRESENT ILLNESS: This is an unfortunate 63-year-old gentleman with multiple medical probl ems including significant coronary artery disease, history of AFib, cardiac arrest with return of cir culation, acute kidney injury, BPH, history of liver cirrhosis, who represents with increasing shortn ess of breath, orthopnea, PND and was found to have significant pulmonary edema and moderate to large right pleural effusion, requiring initial noninvasive positive pressure ventilation. The patient im proved with initial noninvasive positive pressure ventilation and diuretics, now on nasal cannula O2. PAST MEDICAL HISTORY: As above. MEDICATIONS: Per chart. ALLERGIES: NONE. SOCIAL HISTORY: He is an ex-smoker. No alcohol, no history of drug use. FAMILY HISTORY: Noncontributory. REVIEW OF SYSTEMS: A 12-point review of systems was negative other than that mentioned above. PHYSICAL EXAMINATION: GENERAL: Well-nourished, well-developed gentleman, comfortable at rest, in no acute distress. VITAL SIGNS: Currently afebrile, pulse is 60, blood pressure 151/70, O2 saturation 96% on 3 liters. NECK: Supple. No JVD or lymphadenopathy. CARDIAC: S1, S2. No added sounds or murmurs. CHEST: Diminished air entry bilaterally. ABDOMEN: Soft, nontender. No guarding or rebound. EXTREMITIES: No cyanosis, clubbing, edema. NEUROLOGIC: Grossly intact. No focal deficits. LABORATORY DATA: White count 10, hemoglobin 10.7, platelets of 237. BUN 36, creatinine 2.72. INR 0 .95. ABG: PaO2 was 277. DIAGNOSTIC DATA: Chest x-ray demonstrated moderate CHF with right pleural effusion. This was confir med on the abdomen and pelvis CT. IMPRESSION AND PLAN: 1. Significant coronary artery disease. 2. Underlying chronic obstructive pulmonary disease. 3. Chronic renal insufficiency. 4. Large right pleural effusion, possibly secondary to congestive cardiac failure, although could be from hepatic hydrothorax. RECOMMENDATIONS: 1. Diuretics. 2. Thoracentesis of pleural fluid with pleural fluid studies. 3. Supplemental O2. 4. DVT and GI prophylaxis. 5. Consider rapid de-escalation of antibiotics. Dictated By: RONA TOUSSAINT MD SV/GE Conf#: [id number] [facility]#: [id number] CC: ELBERT DIANA MD;*[facility]*
[2019-01-09] MEDS: FUROSEMIDE 40 MG INJ IV SCH (17:37)
--- NOTE | 2019-01-09 20:35 | PN ---
Date/Time of Note Date/Time of Note DATE: 01/09/19 TIME: 20:29 Assessment/Plan VTE Prophylaxis SCD applied (from Nsg): Yes SCD contraindicated: low risk/ambulating Pharmacological prophylaxis: LMWH Lines/Catheters IV Catheter Type (from Nrsg): Saline Lock Central line still needed: No Urinary Cath still in place: No Reason Cath still needed: urinary retention Assessment/Plan Assessment/Plan 1. Pulmonary edema- IHD angina; s/p acute stemi; V-fib cardiac arrest: s/p shock, amiodarone and epinephrine in the field before ROSC-PTCA with stenting of mid LCx 2. ZBIGNIEW -IV ( Hx of contrast use received for cardiac cath .Judiciouse fluid management. Creatinine decreased from 1.9 to 2.6 3. Severe lactic acidosis with the hx of elevation and now the level is 7: Secondary to copd exacerbation, uti. 4. IHD angina; s/p acute stemi; V-fib cardiac arrest: 06/2018;s/p cardiogenic shock, amiodarone and epinephrine in the field before ROSC-PTCA with stenting of mid LCxS/p intubation for cardiac arrest and respiratory failure and successful extubation 5. Hypertension: nitro drip stopped, cont. BP meds. Adjust as needed 6. COPD- history of heavy smoking and current smoking a pack/day. nicotine addiction. 7. S/P recurrent episodes of pulmonary edema the first one 07/23/18 at about 4pm with resuscitative measures(iv lasix,02; BIPAP,solumedrol) improved. 2 more admissions for the same reason. Admits of smoking and using etoh more than usual 2 days ago. 8.Dyslipidemia 9.Anoxic encephalopathy 10.Aspiration pneumonia? 11.BPH 12.Liver cirrhosis(alcoholic). 13.PAD with the hx of stenting of arteries of extremities 14.ED 15.ATN with creatinine level of more than 6; came down to 2.6; the last one as outpatient 1,9 in the office 3 sdays ago. decrease of creatinine 16.Constipation 17.Liver cirrhosis, probably alcoholic 18.Memory impairment 19.S/P icd implantation on left s/c area. 20.Right more than pleural effusion. Planned thoracentesis. 21. Incomplete data. Result Diagram: 01/09/19 0337 01/09/19 0337 Results 24hrs Laboratory Tests Test 01/08/19 21:41 01/08/19 21:42 01/08/19 21:46 01/09/19 00:00 White Blood Count 12.6 #H Red Blood Count 3.90 L Hemoglobin 12.1 L Hematocrit 39.6 L Mean Corpuscular 101.5 H Volume Mean Corpuscular 31.0 Hemoglobin Mean Corpuscular 30.6 L Hemoglobin Concen t Red Cell 14.1 Distribution Width Platelet Count 314 # Mean Platelet 10.2 Volume Immature 0.600 H Granulocytes % Neutrophils % 61.2 Lymphocytes % 27.3 Monocytes % 7.4 Eosinophils % 2.6 Basophils % 0.9 Nucleated Red 0.0 Blood Cells % Immature 0.080 H Granulocytes # Neutrophils # 7.7 H Lymphocytes # 3.4 H Monocytes # 0.9 Eosinophils # 0.3 Basophils # 0.1 Nucleated Red 0.0 Blood Cells # Prothrombin Time 12.8 Prothrombin Time 1.0 Ratio INR International 0.95 Normalized Ratio Activated 26.3 Partial Thrombopl ast Time Sodium Level 143 Potassium Level 4.7 Chloride Level 106 Carbon Dioxide 19 L Level Anion Gap 18 H Blood Urea 31 H Nitrogen Creatinine 2.65 H Est Glomerular 24 L Filtrat Rate mL/min Glucose Level 237 H Calcium Level 9.9 Magnesium Level 2.1 Iron Level 71 Total Iron 246 Binding Capacity Percent Iron 29 Saturation Total Bilirubin 0.3 Direct Bilirubin 0.00 Indirect 0.3 Bilirubin Aspartate Amino 26 Transf (AST/SGOT) Alanine 36 Aminotransferase (ALT/SGPT) Alkaline 259 H Phosphatase Troponin I 0.074 B-Type 4920 H Natriuretic Peptide Total Protein 7.1 Albumin 4.1 Globulin 3.00 Albumin/Globulin 1.36 Ratio Amylase Level < 30 Lipase 109 Thyroid 1.330 Stimulating Hormone (TSH) Ethyl Alcohol < 10.0 H Level Blood Gas Blood arterial Specimen Source Arterial Blood 01/08/2019 10:50: Date Drawn 13 PM Arterial Blood pH 7.362 (Temp corrected) Arterial Blood 38.0 pCO2 (Temp correct) Arterial Blood 277.5 H pO2 (Temp corrected) Arterial Blood 21.1 L HCO3 Arterial Blood -3.9 L Base Excess Arterial Blood 99.2 H Oxygen Saturation Troy Test ACCEPTAB Arterial Blood Right Radial Gas Puncture Site Arterial 0.3 Blood Carboxyhemo globin Arterial Blood 0.3 Methemoglobin Blood Gas A-a O2 36.3 H Differential Oxyhemoglobin 98.6 Percent Blood Gas 37.0 Temperature Blood Gas 16.0 Respiration Rate Blood Gas Actual 22 Respiration Rate Blood Gas MASK - BIPAP Modality FiO2 50.0 Blood Gas 10 Pressure Support Blood Gas 15/5 IPAP/EPAP Ratio Blood Gas KM Notified Whom Blood Gas 01/08/2019 11:04: Notified Time 02 PM POC Venous 7.1 *H 1.3 Lactate Test 01/09/19 03:00 01/09/19 03:37 01/09/19 14:28 01/09/19 17:34 POC Venous 1.4 Lactate White Blood Count 10.0 # Red Blood Count 3.37 L Hemoglobin 10.7 L Hematocrit 31.9 L Mean Corpuscular 94.7 Volume Mean Corpuscular 31.8 Hemoglobin Mean Corpuscular 33.5 Hemoglobin Concen t Red Cell 14.2 Distribution Width Platelet Count 237 # Mean Platelet 10.4 Volume Immature 0.600 H Granulocytes % Neutrophils % 80.8 H Lymphocytes % 12.2 L Monocytes % 5.6 Eosinophils % 0.3 Basophils % 0.5 Nucleated Red 0.0 Blood Cells % Immature 0.060 H Granulocytes # Neutrophils # 8.1 H Lymphocytes # 1.2 Monocytes # 0.6 Eosinophils # 0.0 Basophils # 0.1 Nucleated Red 0.0 Blood Cells # Sodium Level 142 Potassium Level 4.4 Chloride Level 103 Carbon Dioxide 25 Level Anion Gap 14 H Blood Urea 36 H Nitrogen Creatinine 2.72 H Est Glomerular 24 L Filtrat Rate mL/min Glucose Level 188 Lactic Acid Level 0.8 Calcium Level 9.3 Total Bilirubin 0.3 Direct Bilirubin 0.00 Indirect 0.3 Bilirubin Aspartate Amino 34 Transf (AST/SGOT) Alanine 52 Aminotransferase (ALT/SGPT) Alkaline 247 H Phosphatase Total Protein 6.7 Albumin 3.7 Globulin 3.00 Albumin/Globulin 1.23 Ratio Alpha Fetoprotein 1.87 Bedside Glucose 141 102 Subjective 24 Hr Interval Summary Free Text/Dictation sob improved, but again I can't breath normally. Constitutional: improved, diaphoresis, poor po, requiring O2; No no complaints, No chills, No disoriented, No febrile, No requiring IVF, No other Eyes: No no complaints, No pain, No discharge, No redness, No visual change, No other ENT: congestion, dysphagia, sore throat; No no complaints, No bleeding, No pain, No discharge, No other Respiratory: cough, shortness of breath; No no complaints, No pain, No pleuritic pain, No sputum, No wheezing, No other Cardiovascular: chest pain, lightheadedness, orthopenea, palpitations, paroxysmal nocturnal dyspnea; No no complaints, No edema, No other Gastrointestinal: constipation, decreased appetite, flatus, nausea, passing stool; No no complaints, No pain, No blood, No diarrhea, No vomiting, No other Genitourinary: dysuria, flank pain; No no complaints, No bleeding, No discharge, No hematuria, No other Musculoskeletal: back pain, bone/joint pain; No no complaints, No neck pain, No restricted range of motion, No swelling, No other Psychological: anxiety; No no complaints, No nl mood/affect, No confusion, No depression, No suicidal, No other Exam/Review of Systems Exam Vitals Vital Signs Date Temp Pulse Resp B/P (MAP) Pulse Ox O2 O2 Flow FiO2 Time Delivery Rate 01/09/19 62 20:00 01/09/19 97.7 19 156/72 95 19:29 (100) 01/09/19 Nasal 3.0 13:38 Cannula 01/08/19 80 23:03 Constitutional: alert, oriented, well developed, distress, frail, obese; No non-verbal, No other Psych: anxiety, depression; No no complaints, No nl mood/affect, No confusion, No suicidal, No other Head: normocephalic, atraumatic; No lacerations, No hematomas, No other Eyes: EOMI, nl lids, PERRL; No nl conjunctiva, No nl sclera, No icteric, No fundi, disc, No other ENMT: nl external ears & nose, nl nasal mucosa & septum; No nl lips & teeth, No mucosa pink and moist, No intubated, No tympanic membranes, No other Neck: jvd, bruits; No supple, No non-tender, No masses, No thyromegaly, No nuchal rigidity, No other Respiratory: normal air movement, congested cough, diminished breath sounds (inferior zoznes of both lungs.), intercostal retraction, respirations; No clear to auscultation, No crackles/rales, No labored breathing, No tactile fremitus, No wheezing, No other Cardiovascular: regular rate and rhythm, bruits, jugular venous distention (JVD), systolic murmur, other (s/p icd implantation.); No nl pulses, No diastolic murmur, No edema, No gallop, No irregular rhythm, No murmurs/extra sounds, No rub, No S3, No S4 Gastrointestinal: soft, non-tender, bowel sounds, distended, hepatomegaly; No nl liver, spleen, No ascites, No firm, No mass, No rebound or guarding, No splenomegaly, No surgical scars, No tender, No other Genitourinary - Male: nl penis, nl scrotum; No CVA tenderness, No discharge, No other Musculoskeletal: joint tenderness, muscle tone, muscle weakness; No nl extremities to inspection, No nl gait and stance, No range of motion, No spine non-tender, No swelling, No other Extremities: normal pulses; No calf tenderness, No cyanosis, No clubbing, No edema, No pitting pedal edema, No palpable cord, No tenderness, No other Neurological: TRACKMAN II-XII intact, nl speech, numbness; No nl mental status, No nl strength, No confused, No DTR's symmetric, No focal weakness, No lethargic, No reflexes, No unresponsive, No other Skin: nl turgor (decreased.); No rash or lesions, No diaphoresis, No ecchymosis, No laceration, No puncture, No other Lymph: No nl lymph nodes, No enlarged, No nontender, No other Results Results 24hrs Laboratory Tests Test 01/08/19 21:41 01/08/19 21:42 01/08/19 21:46 01/09/19 00:00 White Blood Count 12.6 #H Red Blood Count 3.90 L Hemoglobin 12.1 L Hematocrit 39.6 L Mean Corpuscular 101.5 H Volume Mean Corpuscular 31.0 Hemoglobin Mean Corpuscular 30.6 L Hemoglobin Concen t Red Cell 14.1 Distribution Width Platelet Count 314 # Mean Platelet 10.2 Volume Immature 0.600 H Granulocytes % Neutrophils % 61.2 Lymphocytes % 27.3 Monocytes % 7.4 Eosinophils % 2.6 Basophils % 0.9 Nucleated Red 0.0 Blood Cells % Immature 0.080 H Granulocytes # Neutrophils # 7.7 H Lymphocytes # 3.4 H Monocytes # 0.9 Eosinophils # 0.3 Basophils # 0.1 Nucleated Red 0.0 Blood Cells # Prothrombin Time 12.8 Prothrombin Time 1.0 Ratio INR International 0.95 Normalized Ratio Activated 26.3 Partial Thrombopl ast Time Sodium Level 143 Potassium Level 4.7 Chloride Level 106 Carbon Dioxide 19 L Level Anion Gap 18 H Blood Urea 31 H Nitrogen Creatinine 2.65 H Est Glomerular 24 L Filtrat Rate mL/min Glucose Level 237 H Calcium Level 9.9 Magnesium Level 2.1 Iron Level 71 Total Iron 246 Binding Capacity Percent Iron 29 Saturation Total Bilirubin 0.3 Direct Bilirubin 0.00 Indirect 0.3 Bilirubin Aspartate Amino 26 Transf (AST/SGOT) Alanine 36 Aminotransferase (ALT/SGPT) Alkaline 259 H Phosphatase Troponin I 0.074 B-Type 4920 H Natriuretic Peptide Total Protein 7.1 Albumin 4.1 Globulin 3.00 Albumin/Globulin 1.36 Ratio Amylase Level < 30 Lipase 109 Thyroid 1.330 Stimulating Hormone (TSH) Ethyl Alcohol < 10.0 H Level Blood Gas Blood arterial Specimen Source Arterial Blood 01/08/2019 10:50: Date Drawn 13 PM Arterial Blood pH 7.362 (Temp corrected) Arterial Blood 38.0 pCO2 (Temp correct) Arterial Blood 277.5 H pO2 (Temp corrected) Arterial Blood 21.1 L HCO3 Arterial Blood -3.9 L Base Excess Arterial Blood 99.2 H Oxygen Saturation [place] Test ACCEPTAB Arterial Blood Right Radial Gas Puncture Site Arterial 0.3 Blood Carboxyhemo globin Arterial Blood 0.3 Methemoglobin Blood Gas A-a O2 36.3 H Differential Oxyhemoglobin 98.6 Percent Blood Gas 37.0 Temperature Blood Gas 16.0 Respiration Rate Blood Gas Actual 22 Respiration Rate Blood Gas MASK - BIPAP Modality FiO2 50.0 Blood Gas 10 Pressure Support Blood Gas 15/5 IPAP/EPAP Ratio Blood Gas Notified Whom Blood Gas 01/08/2019 11:04: Notified Time 02 PM POC Venous 7.1 *H 1.3 Lactate Test 01/09/19 03:00 01/09/19 03:37 01/09/19 14:28 01/09/19 17:34 POC Venous 1.4 Lactate White Blood Count 10.0 # Red Blood Count 3.37 L Hemoglobin 10.7 L Hematocrit 31.9 L Mean Corpuscular 94.7 Volume Mean Corpuscular 31.8 Hemoglobin Mean Corpuscular 33.5 Hemoglobin Concen t Red Cell 14.2 Distribution Width Platelet Count 237 # Mean Platelet 10.4 Volume Immature 0.600 H Granulocytes % Neutrophils % 80.8 H Lymphocytes % 12.2 L Monocytes % 5.6 Eosinophils % 0.3 Basophils % 0.5 Nucleated Red 0.0 Blood Cells % Immature 0.060 H Granulocytes # Neutrophils # 8.1 H Lymphocytes # 1.2 Monocytes # 0.6 Eosinophils # 0.0 Basophils # 0.1 Nucleated Red 0.0 Blood Cells # Sodium Level 142 Potassium Level 4.4 Chloride Level 103 Carbon Dioxide 25 Level Anion Gap 14 H Blood Urea 36 H Nitrogen Creatinine 2.72 H Est Glomerular 24 L Filtrat Rate mL/min Glucose Level 188 Lactic Acid Level 0.8 Calcium Level 9.3 Total Bilirubin 0.3 Direct Bilirubin 0.00 Indirect 0.3 Bilirubin Aspartate Amino 34 Transf (AST/SGOT) Alanine 52 Aminotransferase (ALT/SGPT) Alkaline 247 H Phosphatase Total Protein 6.7 Albumin 3.7 Globulin 3.00 Albumin/Globulin 1.23 Ratio Alpha Fetoprotein 1.87 Bedside Glucose 141 102 Medications Medication Current Medications Albuterol/ Ipratropium (Duoneb) 3 ml Q6H RESP THERAPY HHN ; Start 01/09/19 at 00:30 Amlodipine Besylate (Norvasc) 2.5 mg DAILY PO Last administered on 01/09/19 09:51; Admin Dose 2.5 MG; Start 01/09/19 at 09:00 Aspirin (Halfprin) 81 mg DAILY PO Last administered on 01/09/19 09:51; Admin Dose 81 MG; Start 01/09/19 at 09:00 Atorvastatin Calcium (Lipitor) 80 mg DAILY@21 PO ; Start 01/09/19 at 21:00 Carvedilol (Coreg) 50 mg BID PO Last administered on 01/09/19 09:52; Admin Dose 50 MG; Start 01/09/19 at 00:00 Hydralazine HCl (Apresoline) 100 mg TID PO Last administered on 01/09/19 14:30; Admin Dose 100 MG; Start 01/09/19 at 09:00 Insulin Aspart (Novolog Insulin Pen) WITH MEALS BEDTIME SC ; Start 01/09/19 at 08:00 Pantoprazole (Protonix Tab) 40 mg DAILY@06 PO Last administered on 01/09/19 09:51; Admin Dose 40 MG; Start 01/09/19 at 06:00 Ticagrelor (Brilinta) 90 mg BID PO Last administered on 01/09/19at 09:00; Admin Dose 90 MG; Start 01/09/19 at 09:00; Status Hold Enoxaparin Sodium (Lovenox) 40 mg DAILY SC Last administered on 01/09/19at 00:46; Admin Dose 40 MG; Start 01/09/19 at 00:00 Miscellaneous Information 1 ea NOTE XX ; Start 01/09/19 at 00:30 Glucose (Glutose) 15 gm Q15M PRN PO DECREASED GLUCOSE; Start 01/09/19 at 00:30 Glucose (Glutose) 22.5 gm Q15M PRN PO DECREASED GLUCOSE; Start 01/09/19 at 00:30 Dextrose (D50w Syringe) 25 ml Q15M PRN IV DECREASED GLUCOSE; Start 01/09/19 at 00:30 Dextrose (D50w Syringe) 50 ml Q15M PRN IV DECREASED GLUCOSE; Start 01/09/19 at 00:30 Glucagon (Glucagen) 1 mg Q15M PRN IM DECREASED GLUCOSE; Start 01/09/19 at 00:30 Glucose (Glutose) 15 gm Q15M PRN BUCCAL DECREASED GLUCOSE; Start 01/09/19 at 00:30 Insulin Aspart (Novolog Insulin Pen) 5 unit WITH MEALS SC Last administered on 01/09/19at 14:37; Admin Dose 5 UNIT; Start 01/09/19 at 08:00 Meropenem/Sodium Chloride 50 ml @ 100 mls/hr Q12 IVPB Last administered on 01/09/19at 11:03; Admin Dose 100 MLS/HR; Start 01/09/19 at 09:00 Furosemide (Lasix) 40 mg BID DIURETICS IV Last administered on 01/09/19at 17:37; Admin Dose 40 MG; Start 01/09/19 at 18:00 Isosorbide Dinitrate (Isordil) 30 mg Q12 PO ; Start 01/09/19 at 21:00 Influenza Virus Vaccine Quadrival (Fluzone) 0.5 ml ONCE ONCE IM* ; Start 01/10/19 at 09:00; Stop 01/10/19 at 09:01 ELBERT DIANA MD Jan 09, 2019 20:35
[2019-01-09] MEDS: ISOSORBIDE DINITRATE 20 MG TAB PO SCH (20:53)
[2019-01-09] MEDS ORDERED: ATORVASTATIN 80 MG TAB PO SCH (21:00)
[2019-01-10] VITALS (10 sets, daily range): BP systolic 112–136; BP diastolic 53–65; PULSE 61–98; RESP 17–19
[2019-01-10] MEDS: ALBUTEROL/IPRATROPIUM (NEB) 3 ML AMP HHN SCH ×3 (01:48→13:28)
[2019-01-10] MEDS: FUROSEMIDE 40 MG INJ IV SCH (05:38)
[2019-01-10] MEDS: PANTOPRAZOLE (EC) 40 MG TAB PO SCH (05:38)
[2019-01-10] MEDS: INSULIN ASPART [NOVOLOG] 3 ML PEN SC SCH ×4 (07:55→11:50)
--- NOTE | 2019-01-10 08:14 | CONS ---
Assessment/Plan Assessment/Plan Hospital Course (Demo Recall) 63 yo male presented with SOB 1. Liver cirrhosis secondary to alcohol -lfts wnl except alk phos is elevated, neg peres's -AFP 1.87 2. Acute on chronic renal disease 3. Anemia, acute --pt was on brillinta and asa at home, currently inpatient pt is on ASA and lovenox 4. SOB with CXR showing central pulmonary vascular congestion, perihilar and lower lobe infiltrates, pleural effusion and cardiomegaly 5. S/P STEMI 6 months ago with stent placement on brillinta and asa at home 6. HTN, CAD, DLD 7. Alcohol abuse -pt states he does not drink alcohol anymore but blood alcohol levels greater than 10. 8. Nicotine dependence 9. COPD 10. Non compliance 11. Large right pleural effusion, possibly secondary to congestive cardiac failure, although could be from hepatic hydrothorax per Dr. Elder CT abd 01/09: 1. No intra-abdominal free fluid. No evidence of an inflammatory process within the abdomen or pelvis. 2. Moderate-sized left and large right pleural effusions. Compressive atelectasis in the dependent lung bases. 3. Cardiomegaly. 4. Calcified and ectatic abdominal aorta. Infrarenal aorta with maximal cross- sectional diameter of 2.9 cm. Stented common iliac arteries. 5. Mild diverticulosis of the large bowel. 6. Mildly enlarged prostate gland. Pt restarted on Brillinta and ASA. Currently Brillinta on hold. ASA and Lovenox active Plan: AM labs pending Thoracentesis scheduled for today, pt refused yesterday wanting to speak with Dr. Ziegler first. AFP 1.87 PPI Monitor HH and for acute GI bleeding, we will monitor closely Pt examined and plan of care discussed with Dr. Valadez. Thank you for the referral. Consultation Date/Type/Reason Admit Date/Time Jan 08, 2019 at 22:32 Initial Consult Date Requesting Provider: ELBERT DIANA MD Date/Time of Note DATE: 01/10/19 TIME: 08:10 24 HR Interval Summary Free Text/Dictation NO c/o SOB. No acute changes overnight. Stable. NO abd pain, n/v. Exam/Review of Systems Exam Vitals Vital Signs Date Temp Pulse Resp B/P (MAP) Pulse Ox O2 O2 Flow FiO2 Time Delivery Rate 2/19/19 97.6 70 18 136/65 95 Nasal 07:10 (88) Cannula 01/10/19 3.0 03:00 01/10/19 30 01:48 Intake and Output 01/09/19 01/09/19 01/10/19 1515:00 23:00 07:00 IntakeIntake Total 530 ml 750 ml BalanceBalance 530 ml 750 ml Constitutional: alert, oriented Psych: no complaints Head: normocephalic Eyes: nl sclera, PERRL Respiratory: crackles/rales Gastrointestinal: soft, non-tender Musculoskeletal: nl gait and stance Extremities: normal pulses Neurological: nl mental status, nl speech Results Result Diagram: 01/09/19 0337 01/09/19 0337 Results 24hrs Laboratory Tests Test 01/09/19 14:28 01/09/19 17:34 01/09/19 20:48 01/10/19 08:00 Bedside Glucose 141 102 151 153 Medications Medication Current Medications Albuterol/ Ipratropium (Duoneb) 3 ml Q6H RESP THERAPY HHN Last administered on 01/10/19 01:48; Admin Dose 3 ML; Start 01/09/19 at 00:30 Amlodipine Besylate (Norvasc) 2.5 mg DAILY PO Last administered on 01/09/19 09:51; Admin Dose 2.5 MG; Start 01/09/19 at 09:00 Aspirin (Halfprin) 81 mg DAILY PO Last administered on 01/09/19 09:51; Admin Dose 81 MG; Start 01/09/19 at 09:00 Atorvastatin Calcium (Lipitor) 80 mg DAILY@21 PO Last administered on 01/09/19 20:51; Admin Dose 80 MG; Start 01/09/19 at 21:00 Carvedilol (Coreg) 50 mg BID PO Last administered on 01/09/19 20:53; Admin Dose 50 MG; Start 01/09/19 at 00:00 Hydralazine HCl (Apresoline) 100 mg TID PO Last administered on 01/09/19 20:53; Admin Dose 100 MG; Start 01/09/19 at 09:00 Insulin Aspart (Novolog Insulin Pen) WITH MEALS BEDTIME SC ; Start 01/09/19 at 08:00 Pantoprazole (Protonix Tab) 40 mg DAILY@06 PO Last administered on 01/10/19at 05:38; Admin Dose 40 MG; Start 01/09/19 at 06:00 Ticagrelor (Brilinta) 90 mg BID PO Last administered on 01/09/19at 09:00; Admin Dose 90 MG; Start 01/09/19 at 09:00; Status Hold Enoxaparin Sodium (Lovenox) 40 mg DAILY SC Last administered on 01/09/19at 00:46; Admin Dose 40 MG; Start 01/09/19 at 00:00 Miscellaneous Information 1 ea NOTE XX ; Start 01/09/19 at 00:30 Glucose (Glutose) 15 gm Q15M PRN PO DECREASED GLUCOSE; Start 01/09/19 at 00:30 Glucose (Glutose) 22.5 gm Q15M PRN PO DECREASED GLUCOSE; Start 01/09/19 at 00:30 Dextrose (D50w Syringe) 25 ml Q15M PRN IV DECREASED GLUCOSE; Start 01/09/19 at 00:30 Dextrose (D50w Syringe) 50 ml Q15M PRN IV DECREASED GLUCOSE; Start 01/09/19 at 00:30 Glucagon (Glucagen) 1 mg Q15M PRN IM DECREASED GLUCOSE; Start 01/09/19 at 00:30 Glucose (Glutose) 15 gm Q15M PRN BUCCAL DECREASED GLUCOSE; Start 01/09/19 at 00:30 Insulin Aspart (Novolog Insulin Pen) 5 unit WITH MEALS SC Last administered on 01/10/19at 08:08; Admin Dose 5 UNIT; Start 01/09/19 at 08:00 Meropenem/Sodium Chloride 50 ml @ 100 mls/hr Q12 IVPB Last administered on 01/09/19at 20:50; Admin Dose 100 MLS/HR; Start 01/09/19 at 09:00 Furosemide (Lasix) 40 mg BID DIURETICS IV Last administered on 01/10/19at 05:38; Admin Dose 40 MG; Start 01/09/19 at 18:00 Isosorbide Dinitrate (Isordil) 30 mg Q12 PO Last administered on 01/09/19at 20:53; Admin Dose 30 MG; Start 01/09/19 at 21:00 Influenza Virus Vaccine Quadrival (Fluzone) 0.5 ml ONCE ONCE IM* ; Start 2/19/19 at 09:00; Stop 01/10/19 at 09:01 SIMONE HOWARD Jan 10, 2019 08:14
--- NOTE | 2019-01-10 08:26 | PN ---
DATE: 01/10/2019 SUBJECTIVE: The patient is stable, no events overnight. OBJECTIVE: VITAL SIGNS: Blood pressure is 136/65, respirations 18, pulse 70, temperature 97.6. HEENT: Head is normocephalic. NECK: Supple. HEART: Regular rate. LUNGS: Show diminished breath sounds at the base. ABDOMEN: Soft, nontender to palpation without rebound or guarding. EXTREMITIES: Negative for clubbing, cyanosis, no edema. DERMATOLOGIC: No rashes. MUSCULOSKELETAL: No joint effusion. NEUROLOGIC: No change in exam. MEDICATIONS: The patient's medications have been reviewed. LABORATORY DATA: Shows a white count 10.9, hemoglobin 10.7, platelet count 237. Sodium 142, BUN 36 and creatinine 2.72. Repeat BMP for 01/10/19 is pending. ASSESSMENT AND PLAN: 1. Nonoliguric acute kidney injury on top of chronic kidney disease stage IV with previous baseline creatinine of 2.5 to 3.0 mg/dL. Etiology of acute kidney injury is secondary to hemodynamics, possib le cardiorenal syndrome. The patient's urinalysis is pending. At this point, continue current treat ment plans, supportive care, renally dose all medicines, continue diuretic therapy, monitor renal fun ction and electrolytes closely. 2. Hypertensive urgency. Etiology is in part due to increased intravascular volume. The patient's blood pressures have improved. Continue medical management. Continue diuretic regimen. 3. Anemia. Continue to monitor hemoglobin and hematocrit levels. 4. Mineral bone disorder. Continue to monitor calcium and phosphorus levels. 5. Decompensated heart failure, acute systolic, diastolic. The patient is clinically improving. Co ntinue diuretic regimen. Follow up with Cardiology for recommendations. 6. Acute hypoxemic respiratory failure secondary to acute heart failure, chronic obstructive pulmona ry disease. The patient is clinically improving. Continue diuretic regimen. 7. Coronary artery disease. Continue current treatment plan. 8. Dyslipidemia. Continue statin therapy. 9. Diabetes. Continue current insulin regimen. 10. Systemic inflammatory response syndrome. The patient is on antibiotics, continue to monitor. 11. History of ETOH liver disease. 12. Pleural effusion. The patient refused thoracentesis. Dictated By: LILY MONTIEL/GE Conf#: [id number] DID#: [id number] CC: ELBERT DIANA MD; CHEMO MOODY MD;*[facility]*
[2019-01-10] MEDS ORDERED: INFLUENZA VIRUS VACCINE 0.5 ML (DISPENSING) IM* ONE (09:00)
[2019-01-10] MEDS: ENOXAPARIN 40 MG/0.4 ML SYG SC SCH (09:00)
[2019-01-10] MEDS: MEROPENEM 1 GM/50ML(PMX) 50 ML IVPB SCH (09:05)
[2019-01-10] MEDS: ISOSORBIDE DINITRATE 20 MG TAB PO SCH (09:06)
[2019-01-10] MEDS: AMLODIPINE 2.5 MG TAB PO SCH (09:07)
[2019-01-10] MEDS: ASPIRIN (EC) 81 MG TAB PO SCH (09:07)
[2019-01-10] MEDS ORDERED: LIDOCAINE 1% (MPF) 5 ML VIAL ONE (12:23)
--- NOTE | 2019-01-10 13:34 | CONS ---
Assessment/Plan Assessment/Plan Hospital Course (Demo Recall) ID NOTE CURRENT ABX: => Merrem 01/10/19 0736 01/10/19 0736 24H INTERVAL SUMMARY * s/p Thora -- feeling well, eager to DC home -- no F/C/N/V/cough * 01/08/18 CXR: IMPRESSION: Cardiomegaly with calcified atherosclerosis in the aorta. Central pulmonary vascular congestion and interstitial prominence in both lungs. Bilateral perihilar and lower lung infiltrates with small left pleural effusion and small to moderate right pleural effusion. * 01/09/19 CT ABD-PEL: IMPRESSION: * 1. No intra-abdominal free fluid. No evidence of an inflammatory process within the abdomen or pelvis. * 2. Moderate-sized left and large right pleural effusions. Compressive atelectasis in the dependent lung bases. * 3. Cardiomegaly. * 4. Calcified and ectatic abdominal aorta. Infrarenal aorta with maximal cross-sectional diameter of 2.9 cm. Stented common iliac arteries. * 5. Mild diverticulosis of the large bowel. * 6. Mildly enlarged prostate gland. MICRO * 01/08/19 BCX (-) PRELIMINARY BLOOD CULTURE Preliminary NO GROWTH AFTER 1 DAY PHYSICAL EXAMINATION: GENERAL: VSS HEENT: AT, NC, anicteric NECK: Trach CHEST: Course BS HEART: RRR ABDOMEN: soft, peg EXT: Warm SKIN: no RASH no diaphoresis ID ASSESSMENT: 63 yo F admit with: 1. CHF exacerbation 2. Pleural effusions -> s/p THORA 3. Concern for PNA -- asymptomatic (-)MRSA Nares INVASIVES: PIV ABX ALLERGY: KNDA CURRENT ABX: =>Merrem ID RECOMMENDATIONS/PLAN: 1. Spoke w/Dr. Rae who recommends DC ABX as patient is asymptomatic, may DC OFF ABX when cleared by primary . Consultation Date/Type/Reason Admit Date/Time Jan 08, 2019 at 22:32 Initial Consult Date Requesting Provider: ELBERT DIANA MD Date/Time of Note DATE: 01/10/19 TIME: 13:05 Exam/Review of Systems Exam Vitals Vital Signs Date Temp Pulse Resp B/P (MAP) Pulse Ox O2 O2 Flow FiO2 Time Delivery Rate 01/10/19 62 12:26 01/10/19 97.8 18 115/53 93 Room Air 11:05 (73) 01/10/19 2.0 08:55 01/10/19 30 01:48 Intake and Output 01/09/19 01/09/19 01/10/19 1515:00 23:00 07:00 IntakeIntake Total 530 ml 750 ml BalanceBalance 530 ml 750 ml Results Result Diagram: 01/10/19 0736 01/10/19 0736 Results 24hrs Laboratory Tests Test 01/09/19 14:28 01/09/19 17:34 01/09/19 20:48 01/10/19 07:36 Bedside Glucose 141 102 151 White Blood Count 8.6 Red Blood Count 3.45 L Hemoglobin 10.6 L Hematocrit 32.7 L Mean Corpuscular 94.8 Volume Mean Corpuscular 30.7 Hemoglobin Mean Corpuscular 32.4 Hemoglobin Concent Red Cell 14.1 Distribution Width Platelet Count 254 Mean Platelet Volume 10.2 Immature 0.200 Granulocytes % Neutrophils % 80.2 H Lymphocytes % 9.8 L Monocytes % 6.6 Eosinophils % 2.6 Basophils % 0.6 Nucleated Red Blood 0.0 Cells % Immature 0.020 Granulocytes # Neutrophils # 6.9 Lymphocytes # 0.8 Monocytes # 0.6 Eosinophils # 0.2 Basophils # 0.1 Nucleated Red Blood 0.0 Cells # Sodium Level 144 Potassium Level 3.8 Chloride Level 104 Carbon Dioxide Level 24 Anion Gap 16 H Blood Urea Nitrogen 40 H Creatinine 3.18 H Est Glomerular 20 L Filtrat Rate mL/min Glucose Level 161 Calcium Level 9.3 Phosphorus Level 5.8 H Magnesium Level 2.1 Test 01/10/19 08:00 Bedside Glucose 153 Medications Medication Current Medications Albuterol/ Ipratropium (Duoneb) 3 ml Q6H RESP THERAPY HHN Last administered on 01/10/19at 08:53; Admin Dose 3 ML; Start 01/09/19 at 00:30 Amlodipine Besylate (Norvasc) 2.5 mg DAILY PO Last administered on 01/10/19at 09:07; Admin Dose 2.5 MG; Start 01/09/19 at 09:00 Aspirin (Halfprin) 81 mg DAILY PO Last administered on 01/10/19at 09:07; Admin Dose 81 MG; Start 01/09/19 at 09:00 Atorvastatin Calcium (Lipitor) 80 mg DAILY@21 PO Last administered on 01/09/19at 20:51; Admin Dose 80 MG; Start 01/09/19 at 21:00 Carvedilol (Coreg) 50 mg BID PO Last administered on 01/10/19at 09:05; Admin Dose 50 MG; Start 01/09/19 at 00:00 Hydralazine HCl (Apresoline) 100 mg TID PO Last administered on 01/10/19at 09:06; Admin Dose 100 MG; Start 01/09/19 at 09:00 Insulin Aspart (Novolog Insulin Pen) WITH MEALS BEDTIME SC ; Start 01/09/19 at 08:00 Pantoprazole (Protonix Tab) 40 mg DAILY@06 PO Last administered on 01/10/19at 05:38; Admin Dose 40 MG; Start 01/09/19 at 06:00 Ticagrelor (Brilinta) 90 mg BID PO Last administered on 01/09/19at 09:00; Admin Dose 90 MG; Start 01/09/19 at 09:00; Status Hold Enoxaparin Sodium (Lovenox) 40 mg DAILY SC Last administered on 01/09/19at 00:46; Admin Dose 40 MG; Start 01/09/19 at 00:00 Miscellaneous Information 1 ea NOTE XX ; Start 01/09/19 at 00:30 Glucose (Glutose) 15 gm Q15M PRN PO DECREASED GLUCOSE; Start 01/09/19 at 00:30 Glucose (Glutose) 22.5 gm Q15M PRN PO DECREASED GLUCOSE; Start 01/09/19 at 00:30 Dextrose (D50w Syringe) 25 ml Q15M PRN IV DECREASED GLUCOSE; Start 01/09/19 at 00:30 Dextrose (D50w Syringe) 50 ml Q15M PRN IV DECREASED GLUCOSE; Start 01/09/19 at 00:30 Glucagon (Glucagen) 1 mg Q15M PRN IM DECREASED GLUCOSE; Start 01/09/19 at 00:30 Glucose (Glutose) 15 gm Q15M PRN BUCCAL DECREASED GLUCOSE; Start 01/09/19 at 00:30 Insulin Aspart (Novolog Insulin Pen) 5 unit WITH MEALS SC Last administered on 01/10/19at 08:08; Admin Dose 5 UNIT; Start 01/09/19 at 08:00 Meropenem/Sodium Chloride 50 ml @ 100 mls/hr Q12 IVPB Last administered on 01/10/19 09:05; Admin Dose 100 MLS/HR; Start 01/09/19 at 09:00 Furosemide (Lasix) 40 mg BID DIURETICS IV Last administered on 01/10/19at 05:38; Admin Dose 40 MG; Start 01/09/19 at 18:00 Isosorbide Dinitrate (Isordil) 30 mg Q12 PO Last administered on 01/10/19 09:06; Admin Dose 30 MG; Start 01/09/19 at 21:00 DAKOTA JOSEPH NP Jan 10, 2019 13:34
--- NOTE | 2019-01-10 14:02 | PN ---
Date/Time of Note Date/Time of Note DATE: 01/10/19 TIME: 13:57 Assessment/Plan VTE Prophylaxis Risk score (from Ns)>0 risk: 2 SCD applied (from Ns): Yes Pharmacological prophylaxis: LMWH Lines/Catheters IV Catheter Type (from Nrs): Mid Line Central line still needed: No Urinary Cath still in place: No Reason Cath still needed: urinary retention Assessment/Plan Assessment/Plan 1. Pulmonary edema- (new onset); IHD angina; 06/2018-s/p acute stemi; V-fib cardiac arrest: s/p shock, amiodarone and epinephrine in the field before ROSC-P TCA with stenting of mid LCx 2. ZBIGNIEW -IV ( Hx of contrast use received for cardiac cath .Judiciouse fluid management. Creatinine decreased from 1.9 to 2.6 3. Severe lactic acidosis with the hx of elevation and now the level is 7: Secondary to copd exacerbation, uti.Now 1.2 4. IHD angina; s/p acute stemi; V-fib cardiac arrest: 06/2018;s/p cardiogenic shock, amiodarone and epinephrine in the field before ROSC-PTCA with stenting of mid LCxS/p intubation for cardiac arrest and respiratory failure and successful extubation 5. Hypertension: Continue nitro drip and BP meds. Adjust as needed 6. COPD- history of heavy smoking and current smoking a pack/day. nicotine addiction. 7. S/P episode of pulmonary edema 07/23/18 at about 4pm with resuscitative measures(iv lasix,02; BIPAP,solumedrol) improved. His d-dimer was elevated too. Today's hyperglycemia is a result of yesterdays solumedrol injection. 8.Dyslipidemia 9.Anoxic encephalopathy 10.Aspiration pneumonia? 11.BPH 12.Liver cirrhosis(alcoholic). 13.PAD with the hx of stenting of arteries of extremities 14.ED 15.ATN with creatinine level of more than 6; came down to 2.6; the last one as outpatient 1,9 in the office 3 sdays ago. decrease of creatini ne 16.Constipation 17.Liver cirrhosis, probably alcoholic 18.Memory impairment 19.S/P icd implantation on left s/c area. 20.Right more than pleural effusion. Planned thoracentesis. 21. Incomplete data. Result Diagram: 01/10/19 0736 01/10/19 0736 Results 24hrs Laboratory Tests Test 01/09/19 14:28 01/09/19 17:34 01/09/19 20:48 01/10/19 07:36 Bedside Glucose 141 102 151 White Blood Count 8.6 Red Blood Count 3.45 L Hemoglobin 10.6 L Hematocrit 32.7 L Mean Corpuscular 94.8 Volume Mean Corpuscular 30.7 Hemoglobin Mean Corpuscular 32.4 Hemoglobin Concent Red Cell 14.1 Distribution Width Platelet Count 254 Mean Platelet Volume 10.2 Immature 0.200 Granulocytes % Neutrophils % 80.2 H Lymphocytes % 9.8 L Monocytes % 6.6 Eosinophils % 2.6 Basophils % 0.6 Nucleated Red Blood 0.0 Cells % Immature 0.020 Granulocytes # Neutrophils # 6.9 Lymphocytes # 0.8 Monocytes # 0.6 Eosinophils # 0.2 Basophils # 0.1 Nucleated Red Blood 0.0 Cells # Sodium Level 144 Potassium Level 3.8 Chloride Level 104 Carbon Dioxide Level 24 Anion Gap 16 H Blood Urea Nitrogen 40 H Creatinine 3.18 H Est Glomerular 20 L Filtrat Rate mL/min Glucose Level 161 Calcium Level 9.3 Phosphorus Level 5.8 H Magnesium Level 2.1 Test 01/10/19 08:00 Bedside Glucose 153 Subjective 24 Hr Interval Summary Free Text/Dictation improved sob. Constitutional: improved, poor po, requiring O2; No no complaints, No chills, No diaphoresis, No disoriented, No febrile, No requiring IVF, No other ENT: congestion, dysphagia; No no complaints, No bleeding, No pain, No discharge, No sore throat, No other Respiratory: cough, pleuritic pain, shortness of breath; No no complaints, No pain, No sputum, No wheezing, No other Cardiovascular: chest pain, lightheadedness, orthopenea, paroxysmal nocturnal dyspnea; No no complaints, No edema, No palpitations, No other Gastrointestinal: constipation, decreased appetite; No no complaints, No pain, No blood, No diarrhea, No flatus, No nausea, No passing stool, No vomiting, No other Genitourinary: dysuria; No no complaints, No bleeding, No discharge, No flank pain, No hematuria, No other Musculoskeletal: back pain, bone/joint pain, neck pain; No no complaints, No restricted range of motion, No swelling, No other Neurologic: dizziness, headache; No no complaints, No confusion, No focal-weakness, No syncope, No seizure, No other Lymphatic: No no complaints, No adenopathy, No tender nodes, No lymphadema, No other Psychological: anxiety, depression; No no complaints, No nl mood/affect, No confusion, No suicidal, No other Exam/Review of Systems Exam Vitals Vital Signs Date Temp Pulse Resp B/P (MAP) Pulse Ox O2 O2 Flow FiO2 Time Delivery Rate 01/10/19 62 12:26 01/10/19 97.8 18 115/53 93 Room Air 11:05 (73) 01/10/19 2.0 08:55 01/10/19 30 01:48 Intake and Output 01/09/19 01/09/19 01/10/19 1515:00 23:00 07:00 IntakeIntake Total 530 ml 750 ml BalanceBalance 530 ml 750 ml Constitutional: alert, oriented, well developed, distress, frail, obese Psych: anxiety; No no complaints, No nl mood/affect, No confusion, No depression, No suicidal, No other Head: normocephalic, atraumatic Eyes: EOMI, nl lids, PERRL; No nl conjunctiva, No nl sclera, No icteric, No fundi, disc, No other ENMT: No nl external ears & nose, No nl lips & teeth, No nl nasal mucosa & septum, No mucosa pink and moist, No intubated, No tympanic membranes, No other Neck: jvd, bruits, nuchal rigidity; No supple, No non-tender, No masses, No thyromegaly, No other Respiratory: crackles/rales, diminished breath sounds; No clear to auscultation, No normal air movement, No congested cough, No intercostal retraction, No labored breathing, No respirations, No tactile fremitus, No wheezing, No other Cardiovascular: regular rate and rhythm, nl pulses, systolic murmur Gastrointestinal: soft, nl liver, spleen, bowel sounds; No non-tender, No ascites, No distended, No firm, No hepatomegaly, No mass, No rebound or guarding, No splenomegaly, No surgical scars, No tender, No other Genitourinary - Male: nl penis, nl scrotum; No CVA tenderness, No discharge, No other Musculoskeletal: joint tenderness, muscle tone, muscle weakness; No nl extremities to inspection, No nl gait and stance, No range of motion, No spine non-tender, No swelling, No other Extremities: No normal pulses, No calf tenderness, No cyanosis, No clubbing, No edema, No pitting pedal edema, No palpable cord, No tenderness, No other Neurological: [employer]COLOGY ACCOUNT SPECIALIST II-XII intact, confused, numbness; No nl mental status, No nl speech, No nl strength, No DTR's symmetric, No focal weakness, No lethargic, No reflexes, No unresponsive, No other Results Results 24hrs Laboratory Tests Test 01/09/19 14:28 01/09/19 17:34 01/09/19 20:48 01/10/19 07:36 Bedside Glucose 141 102 151 White Blood Count 8.6 Red Blood Count 3.45 L Hemoglobin 10.6 L Hematocrit 32.7 L Mean Corpuscular 94.8 Volume Mean Corpuscular 30.7 Hemoglobin Mean Corpuscular 32.4 Hemoglobin Concent Red Cell 14.1 Distribution Width Platelet Count 254 Mean Platelet Volume 10.2 Immature 0.200 Granulocytes % Neutrophils % 80.2 H Lymphocytes % 9.8 L Monocytes % 6.6 Eosinophils % 2.6 Basophils % 0.6 Nucleated Red Blood 0.0 Cells % Immature 0.020 Granulocytes # Neutrophils # 6.9 Lymphocytes # 0.8 Monocytes # 0.6 Eosinophils # 0.2 Basophils # 0.1 Nucleated Red Blood 0.0 Cells # Sodium Level 144 Potassium Level 3.8 Chloride Level 104 Carbon Dioxide Level 24 Anion Gap 16 H Blood Urea Nitrogen 40 H Creatinine 3.18 H Est Glomerular 20 L Filtrat Rate mL/min Glucose Level 161 Calcium Level 9.3 Phosphorus Level 5.8 H Magnesium Level 2.1 Test 01/10/19 08:00 Bedside Glucose 153 Medications Medication Current Medications Albuterol/ Ipratropium (Duoneb) 3 ml Q6H RESP THERAPY HHN Last administered on 01/10/19 08:53; Admin Dose 3 ML; Start 01/09/19 at 00:30 Amlodipine Besylate (Norvasc) 2.5 mg DAILY PO Last administered on 01/10/19 09:07; Admin Dose 2.5 MG; Start 01/09/19 at 09:00 Aspirin (Halfprin) 81 mg DAILY PO Last administered on 01/10/19 09:07; Admin Dose 81 MG; Start 01/09/19 at 09:00 Atorvastatin Calcium (Lipitor) 80 mg DAILY@21 PO Last administered on 01/09/19 20:51; Admin Dose 80 MG; Start 01/09/19 at 21:00 Carvedilol (Coreg) 50 mg BID PO Last administered on 01/10/19 09:05; Admin Dose 50 MG; Start 01/09/19 at 00:00 Hydralazine HCl (Apresoline) 100 mg TID PO Last administered on 01/10/19 09:06; Admin Dose 100 MG; Start 01/09/19 at 09:00 Insulin Aspart (Novolog Insulin Pen) WITH MEALS BEDTIME SC ; Start 01/09/19 at 08:00 Pantoprazole (Protonix Tab) 40 mg DAILY@06 PO Last administered on 01/10/19 05:38; Admin Dose 40 MG; Start 01/09/19 at 06:00 Ticagrelor (Brilinta) 90 mg BID PO Last administered on 01/09/19at 09:00; Admin Dose 90 MG; Start 01/09/19 at 09:00; Status Hold Enoxaparin Sodium (Lovenox) 40 mg DAILY SC Last administered on 01/09/19at 00:46 ; Admin Dose 40 MG; Start 01/09/19 at 00:00 Miscellaneous Information 1 ea NOTE XX ; Start 01/09/19 at 00:30 Glucose (Glutose) 15 gm Q15M PRN PO DECREASED GLUCOSE; Start 01/09/19 at 00:30 Glucose (Glutose) 22.5 gm Q15M PRN PO DECREASED GLUCOSE; Start 01/09/19 at 00:30 Dextrose (D50w Syringe) 25 ml Q15M PRN IV DECREASED GLUCOSE; Start 01/09/19 at 00:30 Dextrose (D50w Syringe) 50 ml Q15M PRN IV DECREASED GLUCOSE; Start 01/09/19 at 00:30 Glucagon (Glucagen) 1 mg Q15M PRN IM DECREASED GLUCOSE; Start 01/09/19 at 00:30 Glucose (Glutose) 15 gm Q15M PRN BUCCAL DECREASED GLUCOSE; Start 01/09/19 at 00:30 Insulin Aspart (Novolog Insulin Pen) 5 unit WITH MEALS SC Last administered on 01/10/19 08:08; Admin Dose 5 UNIT; Start 01/09/19 at 08:00 Meropenem/Sodium Chloride 50 ml @ 100 mls/hr Q12 IVPB Last administered on 01/10/19at 09:05; Admin Dose 100 MLS/HR; Start 01/09/19 at 09:00 Furosemide (Lasix) 40 mg BID DIURETICS IV Last administered on 01/10/19at 05:38; Admin Dose 40 MG; Start 01/09/19 at 18:00 Isosorbide Dinitrate (Isordil) 30 mg Q12 PO Last administered on 01/10/19at 09:06; Admin Dose 30 MG; Start 01/09/19 at 21:00 ELBERT DIANA MD Jan 10, 2019 14:02
--- NOTE | 2019-01-10 14:41 | CONS ---
Assessment/Plan Assessment/Plan Hospital Course (Demo Recall) Hypertensive urgency - BP 210s on admission. Now controlled Acute on chronic combined systolic and diastolic heart failure -due to salt indiscretion. Now euvolemic after diuresis. Acute kidney injury on chronic kidney disease: Cr baseline ~2.5. Now worse with diuresis Pleural effusion: s/p thoracentesis 01/10 Ischemic cardiomyopathy - LVEF 45% on echocardiogram (October 2018) Coronary artery disease - status post myocardial infarction and ventricular fibrillation arrest, PCI to LCx (June 2018), residual chronic occlusion of RCA BiV ICD - details unknown Dyslipidemia Peripheral vascular disease Alcoholic liver cirrhosis Chronic obstructive pulmonary disease -d/c lasix as euvolemic. Probably start low dose maintenance lasix at discharge -continue carvedilol, hydralazine, isordil (increase to TID), amlodipine at current doses -continue aspirin -restart ticagrelor -continue atorvastatin Consultation Date/Type/Reason Admit Date/Time Jan 08, 2019 at 22:32 Initial Consult Date Requesting Provider: ELBERT DIANA MD Date/Time of Note DATE: 01/10/19 TIME: 14:37 24 HR Interval Summary Free Text/Dictation s/p thora this am with 1L removed. No SOB. No chest pain. No complaints. BP controlled. Exam/Review of Systems Exam Vitals Vital Signs Date Temp Pulse Resp B/P (MAP) Pulse Ox O2 O2 Flow FiO2 Time Delivery Rate 01/10/19 70 122/60 14:21 (80) 01/10/19 97.8 18 93 Room Air 11:05 01/10/19 2.0 08:55 01/10/19 30 01:48 Intake and Output 01/09/19 01/09/19 01/10/19 1515:00 23:00 07:00 IntakeIntake Total 530 ml 750 ml BalanceBalance 530 ml 750 ml Constitutional: alert, oriented Psych: no complaints, nl mood/affect Head: normocephalic, atraumatic Neck: No jvd Respiratory: diminished breath sounds; No clear to auscultation Cardiovascular: regular rate and rhythm; No edema, No systolic murmur Gastrointestinal: soft, non-tender; No distended Neurological: nl mental status, nl speech Results Result Diagram: 01/10/19 0736 01/10/19 0736 Results 24hrs Laboratory Tests Test 01/09/19 17:34 01/09/19 20:48 01/10/19 07:36 01/10/19 08:00 Bedside Glucose 102 151 153 White Blood Count 8.6 Red Blood Count 3.45 L Hemoglobin 10.6 L Hematocrit 32.7 L Mean Corpuscular 94.8 Volume Mean Corpuscular 30.7 Hemoglobin Mean Corpuscular 32.4 Hemoglobin Concen t Red Cell 14.1 Distribution Width Platelet Count 254 Mean Platelet 10.2 Volume Immature 0.200 Granulocytes % Neutrophils % 80.2 H Lymphocytes % 9.8 L Monocytes % 6.6 Eosinophils % 2.6 Basophils % 0.6 Nucleated Red 0.0 Blood Cells % Immature 0.020 Granulocytes # Neutrophils # 6.9 Lymphocytes # 0.8 Monocytes # 0.6 Eosinophils # 0.2 Basophils # 0.1 Nucleated Red 0.0 Blood Cells # Sodium Level 144 Potassium Level 3.8 Chloride Level 104 Carbon Dioxide 24 Level Anion Gap 16 H Blood Urea 40 H Nitrogen Creatinine 3.18 H Est Glomerular 20 L Filtrat Rate mL/min Glucose Level 161 Calcium Level 9.3 Phosphorus Level 5.8 H Magnesium Level 2.1 Test 01/10/19 12:10 Body Fluid Type THORACENTESIS FL UID Body Fluid 130 Glucose Body Fluid Total 2.0 Protein Body Fluid 253 Lactate Dehydroge nase Medications Medication Current Medications Albuterol/ Ipratropium (Duoneb) 3 ml Q6H RESP THERAPY HHN Last administered on 01/10/19 08:53; Admin Dose 3 ML; Start 01/09/19 at 00:30 Amlodipine Besylate (Norvasc) 2.5 mg DAILY PO Last administered on 01/10/19 09:07; Admin Dose 2.5 MG; Start 01/09/19 at 09:00 Aspirin (Halfprin) 81 mg DAILY PO Last administered on 01/10/19 09:07; Admin Dose 81 MG; Start 01/09/19 at 09:00 Atorvastatin Calcium (Lipitor) 80 mg DAILY@21 PO Last administered on 01/09/19 20:51; Admin Dose 80 MG; Start 01/09/19 at 21:00 Carvedilol (Coreg) 50 mg BID PO Last administered on 01/10/19 09:05; Admin Dose 50 MG; Start 01/09/19 at 00:00 Hydralazine HCl (Apresoline) 100 mg TID PO Last administered on 01/10/19at 14:28; Admin Dose 100 MG; Start 01/09/19 at 09:00 Insulin Aspart (Novolog Insulin Pen) WITH MEALS BEDTIME SC ; Start 01/09/19 at 08:00 Pantoprazole (Protonix Tab) 40 mg DAILY@06 PO Last administered on 01/10/19 05:38; Admin Dose 40 MG; Start 01/09/19 at 06:00 Enoxaparin Sodium (Lovenox) 40 mg DAILY SC Last administered on 01/09/19at 00:46; Admin Dose 40 MG; Start 01/09/19 at 00:00 Miscellaneous Information 1 ea NOTE XX ; Start 01/09/19 at 00:30 Glucose (Glutose) 15 gm Q15M PRN PO DECREASED GLUCOSE; Start 01/09/19 at 00:30 Glucose (Glutose) 22.5 gm Q15M PRN PO DECREASED GLUCOSE; Start 01/09/19 at 00:30 Dextrose (D50w Syringe) 25 ml Q15M PRN IV DECREASED GLUCOSE; Start 01/09/19 at 00:30 Dextrose (D50w Syringe) 50 ml Q15M PRN IV DECREASED GLUCOSE; Start 01/09/19 at 00:30 Glucagon (Glucagen) 1 mg Q15M PRN IM DECREASED GLUCOSE; Start 01/09/19 at 00:30 Glucose (Glutose) 15 gm Q15M PRN BUCCAL DECREASED GLUCOSE; Start 01/09/19 at 00:30 Insulin Aspart (Novolog Insulin Pen) 5 unit WITH MEALS SC Last administered on 01/10/19at 08:08; Admin Dose 5 UNIT; Start 01/09/19 at 08:00 Meropenem/Sodium Chloride 50 ml @ 100 mls/hr Q12 IVPB Last administered on 01/10/19at 09:05; Admin Dose 100 MLS/HR; Start 01/09/19 at 09:00 Furosemide (Lasix) 40 mg BID DIURETICS IV Last administered on 01/10/19at 05:38; Admin Dose 40 MG; Start 01/09/19 at 18:00 Isosorbide Dinitrate (Isordil) 30 mg TID PO ; Start 01/10/19 at 21:00 Ticagrelor (Brilinta) 90 mg BID PO ; Start 01/10/19 at 21:00 CHEMO MOODY Jan 10, 2019 14:41
--- NOTE | 2019-01-10 14:54 | PDOCDIS ---
Discharge Instructions DIAGNOSIS Discharge Diagnosis 1. Pulmonary edema- IHD angina; s/p acute stemi; V-fib cardiac arrest: s/p shock, amiodarone and epinephrine in the field before ROSC-PTCA with stenting of mid LCx 2. ZBIGNIEW -IV ( Hx of contrast use received for cardiac cath .Judiciouse fluid management. Creatinine decreased from 1.9 to 2.6 3. Severe lactic acidosis with the hx of elevation and now the level is 7: Secondary to copd exacerbation, uti. 4. IHD angina; s/p acute stemi; V-fib cardiac arrest: 06/2018;s/p cardiogenic shock, amiodarone and epinephrine in the field before ROSC-PTCA with stenting of mid LCxS/p intubation for cardiac arrest and respiratory failure and suc cessful extubation 5. Hypertension: nitro drip stopped, cont. BP meds. Adjust as needed 6. COPD- history of heavy smoking and current smoking a pack/day. nicotine addiction. 7. S/P recurrent episodes of pulmonary edema the first one 07/23/18 at about 4pm with resuscitative measures(iv lasix,02; BIPAP,solumedrol) improved. 2 more admissions for the same reason. Admits of smoking and using etoh more than usual 2 days ago. 8.Dyslipidemia 9.Anoxic encephalopathy 10.Aspiration pneumonia? 11.BPH 12.Liver cirrhosis(alcoholic). 13.PAD with the hx of stenting of arteries of extremities 14.ED 15.ATN with creatinine level of more than 6; came down to 2.6; the last one as outpatient 1,9 in the office 3 sdays ago. decrease of creatinine 16.Constipation 17.Liver cirrhosis, probably alcoholic 18.Memory impairment 19.S/P icd implantation on left s/c area. 20.Right more than pleural effusion. 1 liter serosae fluid removed by thoracentesis. No evidence of pneumothorax. 21. Incomplete data. CONDITION [id number] Patient Condition: [id number] Guarded HOME CARE INSTRUCTIONS: [id number] Diet Instructions: [id number] y [id number] Bathing Restrictions: [id number] Tub Bath FOLLOW UP/APPOINTMENTS Follow-up Plan in 2-3 days to . REFERRALS Other Referrals in 5-6 days. SCHOOL/WORK RELEASE May return to School/Work on: Jan 13, 2019 May return to School/Work with: ELBERT Madden MD Jan 10, 2019 14:54
--- NOTE | 2019-01-10 15:06 | CONS ---
Consult Date/Type/Reason Admit Date/Time Jan 08, 2019 at 22:32 Initial Consult Date Type of Consult Pulmonary Requesting Provider: ELBERT DIANA MD Date/Time of Note DATE: 01/10/19 TIME: 15:05 Subjective Patient comfortable following thoracentesis 1 L. Objective Vital Signs Date Temp Pulse Resp B/P (MAP) Pulse Ox O2 O2 Flow FiO2 Time Delivery Rate 01/10/19 70 122/60 14:21 (80) 01/10/19 97 Nasal 2.0 12:30 Cannula 01/10/19 97.8 11:05 01/10/19 30 01:48 Intake and Output 01/09/19 01/09/19 01/10/19 1515:00 23:00 07:00 IntakeIntake Total 530 ml 750 ml BalanceBalance 530 ml 750 ml Exam GENERAL: Well-nourished well-developed gentleman comfortable at rest VITAL SIGNS: per chart NECK: Supple. No JVD or lymphadenopathy. CARDIAC EXAM: S1, S2. No added sounds or murmurs. CHEST: Diminished air entry bilaterally ABDOMEN: Soft, nontender. No guarding or rebound. EXTREMITIES: No cyanosis, clubbing or edema. NEUROLOGIC: Generalized weakness. No focal deficits. Vent Setting Fraction of Inspired Oxygen pe: 30 Results/Medications Result Diagram: 01/10/19 0736 01/10/19 0736 Results 24 hrs Laboratory Tests Test 01/09/19 17:34 01/09/19 20:48 01/10/19 07:36 01/10/19 08:00 Bedside Glucose 102 151 153 White Blood Count 8.6 Red Blood Count 3.45 L Hemoglobin 10.6 L Hematocrit 32.7 L Mean Corpuscular 94.8 Volume Mean Corpuscular 30.7 Hemoglobin Mean Corpuscular 32.4 Hemoglobin Concen t Red Cell 14.1 Distribution Width Platelet Count 254 Mean Platelet 10.2 Volume Immature 0.200 Granulocytes % Neutrophils % 80.2 H Lymphocytes % 9.8 L Monocytes % 6.6 Eosinophils % 2.6 Basophils % 0.6 Nucleated Red 0.0 Blood Cells % Immature 0.020 Granulocytes # Neutrophils # 6.9 Lymphocytes # 0.8 Monocytes # 0.6 Eosinophils # 0.2 Basophils # 0.1 Nucleated Red 0.0 Blood Cells # Sodium Level 144 Potassium Level 3.8 Chloride Level 104 Carbon Dioxide 24 Level Anion Gap 16 H Blood Urea 40 H Nitrogen Creatinine 3.18 H Est Glomerular 20 L Filtrat Rate mL/min Glucose Level 161 Calcium Level 9.3 Phosphorus Level 5.8 H Magnesium Level 2.1 Test 01/10/19 12:10 Body Fluid Type THORACENTESIS FL UID Body Fluid Volume 1050.0 Body Fluid Color YELLOW Body Fluid SLIGHTLY HAZY Appearance Body Fluid WBC 513 Body Fluid RBC 2000 (Auto) Body Fluid 16.3 Polynuclear WBCs (%) Body Fluid 83.7 Mononuclear Cells % Auto Body Fluid 130 Glucose Body Fluid Total 2.0 Protein Body Fluid 253 Lactate Dehydroge nase Medications Current Medications Albuterol/ Ipratropium (Duoneb) 3 ml Q6H RESP THERAPY HHN Last administered on 01/10/19 08:53; Admin Dose 3 ML; Start 01/09/19 at 00:30 Amlodipine Besylate (Norvasc) 2.5 mg DAILY PO Last administered on 01/10/19 09:07; Admin Dose 2.5 MG; Start 01/09/19 at 09:00 Aspirin (Halfprin) 81 mg DAILY PO Last administered on 01/10/19 09:07; Admin Dose 81 MG; Start 01/09/19 at 09:00 Atorvastatin Calcium (Lipitor) 80 mg DAILY@21 PO Last administered on 01/09/19 20:51; Admin Dose 80 MG; Start 01/09/19 at 21:00 Carvedilol (Coreg) 50 mg BID PO Last administered on 01/10/19 09:05; Admin Dose 50 MG; Start 01/09/19 at 00:00 Hydralazine HCl (Apresoline) 100 mg TID PO Last administered on 01/10/19 14:28; Admin Dose 100 MG; Start 01/09/19 at 09:00 Insulin Aspart (Novolog Insulin Pen) WITH MEALS BEDTIME SC ; Start 01/09/19 at 08:00 Pantoprazole (Protonix Tab) 40 mg DAILY@06 PO Last administered on 01/10/19 05:38; Admin Dose 40 MG; Start 01/09/19 at 06:00 Enoxaparin Sodium (Lovenox) 40 mg DAILY SC Last administered on 01/09/19 00:46; Admin Dose 40 MG; Start 01/09/19 at 00:00 Miscellaneous Information 1 ea NOTE XX ; Start 01/09/19 at 00:30 Glucose (Glutose) 15 gm Q15M PRN PO DECREASED GLUCOSE; Start 01/09/19 at 00:30 Glucose (Glutose) 22.5 gm Q15M PRN PO DECREASED GLUCOSE; Start 01/09/19 at 00:30 Dextrose (D50w Syringe) 25 ml Q15M PRN IV DECREASED GLUCOSE; Start 01/09/19 at 00:30 Dextrose (D50w Syringe) 50 ml Q15M PRN IV DECREASED GLUCOSE; Start 01/09/19 at 00:30 Glucagon (Glucagen) 1 mg Q15M PRN IM DECREASED GLUCOSE; Start 01/09/19 at 00:30 Glucose (Glutose) 15 gm Q15M PRN BUCCAL DECREASED GLUCOSE; Start 01/09/19 at 00:30 Insulin Aspart (Novolog Insulin Pen) 5 unit WITH MEALS SC Last administered on 01/10/19at 08:08; Admin Dose 5 UNIT; Start 01/09/19 at 08:00 Meropenem/Sodium Chloride 50 ml @ 100 mls/hr Q12 IVPB Last administered on 01/10/19at 09:05; Admin Dose 100 MLS/HR; Start 01/09/19 at 09:00 Isosorbide Dinitrate (Isordil) 30 mg TID PO ; Start 01/10/19 at 21:00 Ticagrelor (Brilinta) 90 mg BID PO ; Start 01/10/19 at 21:00 Assessment/Plan Hospital Course (Demo Recall) IMPRESSION 1. Significant coronary artery disease. 2. Underlying chronic obstructive pulmonary disease. 3. Chronic renal insufficiency. 4. Large right pleural effusion, possibly secondary to congestive cardiac failure, although could be from hepatic hydrothorax. Patient declined thoracentesis yesterday agreed to it this morning. RECOMMENDATIONS: 1. Diuretics. 2. Thoracentesis of pleural fluid with pleural fluid studies. 3. Supplemental O2. 4. DVT and GI prophylaxis. 5. Resume RONA Diane MD, [facility] Jan 10, 2019 15:06
[2019-01-10] MEDS ORDERED: ISOSORBIDE DINITRATE 20 MG TAB PO SCH (21:00)
[2019-01-10] MEDS ORDERED: TICAGRELOR 90 MG TABLET PO SCH (21:00)
== END 2019-01-10 16:32 | disposition home or self-care (01) | DRG 291 ==
LOC: E/R 21:37 → TEL 22:32 → EDBEDREQSVC 01-09 10:55
PROVIDERS: ADMIT Family Medicine; ATTEND Family Medicine
PROC: 5A09357 Assistance with Respiratory Ventilation, Less than 24 Consecutive Hours, Continuous Positive Airway Pressure (ICD-10-PCS; principal; 2019-01-08)
PROC: 0W993ZX Drainage of Right Pleural Cavity, Percutaneous Approach, Diagnostic (ICD-10-PCS; 2019-01-10)
DX: I13.0 Hypertensive heart and chronic kidney disease with heart failure and stage 1 through stage 4 chronic kidney disease, or unspecified chronic kidney disease (principal); I50.43 Acute on chronic combined systolic (congestive) and diastolic (congestive) heart failure; J96.01 Acute respiratory failure with hypoxia; J69.0 Pneumonitis due to inhalation of food and vomit; N17.0 Acute kidney failure with tubular necrosis; N18.4 Chronic kidney disease, stage 4 (severe); J44.1 Chronic obstructive pulmonary disease with (acute) exacerbation; G93.1 Anoxic brain damage, not elsewhere classified; N39.0 Urinary tract infection, site not specified; E87.2 Acidosis; J90 Pleural effusion, not elsewhere classified; R65.10 Systemic inflammatory response syndrome (SIRS) of non-infectious origin without acute organ dysfunction; Z95.820 Peripheral vascular angioplasty status with implants and grafts; I25.2 Old myocardial infarction; E11.22 Type 2 diabetes mellitus with diabetic chronic kidney disease; Z86.74 Personal history of sudden cardiac arrest; I16.0 Hypertensive urgency; D63.1 Anemia in chronic kidney disease; I25.10 Atherosclerotic heart disease of native coronary artery without angina pectoris; E78.5 Hyperlipidemia, unspecified; N40.0 Benign prostatic hyperplasia without lower urinary tract symptoms; I48.91 Unspecified atrial fibrillation; I73.9 Peripheral vascular disease, unspecified; K70.30 Alcoholic cirrhosis of liver without ascites; Z91.14 Patient's other noncompliance with medication regimen; F10.20 Alcohol dependence, uncomplicated; Z95.810 Presence of automatic (implantable) cardiac defibrillator; I25.5 Ischemic cardiomyopathy; F17.210 Nicotine dependence, cigarettes, uncomplicated; Z95.5 Presence of coronary angioplasty implant and graft; K59.00 Constipation, unspecified; R41.3 Other amnesia; D64.9 Anemia, unspecified; E83.9 Disorder of mineral metabolism, unspecified
CPT/HCPCS: 36415; 36600; 71045; 74176; 76942; 80048; 80053; 80307; 82105; 82150; 82803; 82945; 82962; 83540; 83605; 83615; 83690; 83735; 83880; 84100; 84157; 84443; 84484; 85025; 85610; 85730; 87040; 87070; 87102; 87116; 88104; 88305; 89051; 93005; 94640; 94660; 94664; 96365; 96375; J0295; J1650; J1815; J1940; J2185

== ENCOUNTER 2019-04-28 00:58 | Inpatient (IN) | payer MEDICARE, OTHER ==
[~2019-04-28] VITALS: Ht 172.7 cm; Wt 80.0 kg
[2019-04-28] VITALS (24 sets, daily range): BP systolic 114–156; BP diastolic 53–89; PULSE 71–115; RESP 10–23; Ht 172.7 cm; Wt 80.0 kg
[~2019-04-28 00:58] MED LIST changes: +AMIO200T4 PO; +AMIT25TA9 PO; -Accu-Chek XX; +BUME1TAB PO; +CILO100T PO; +CLOP75TA27 PO; +DAPA5TAB PO; +DULO60CA59 PO; +EZET10TA31 PO; +FLUT1BLS3 IH; +GABA300C16 PO; +IBUP-1542 PO; +ICOS1CAP PO; -IPRA3AMP29 HHN; +LINA1TAB7 PO; +LIPA1CAP6 PO; +LOSA1TAB25 PO; -Nicotine (14 Mg/24 Hr) TRANSDERM; +PROP20TA4 PO; +ROSU40TA35 PO; +SPIR25TA PO
[2019-04-28] MEDS ORDERED: FUROSEMIDE 20 MG INJ IV STA (00:59)
[2019-04-28] MEDS ORDERED: ONDANSETRON 4 MG INJ IV STA (00:59)
[2019-04-28] MEDS ORDERED: morphine 2 MG INJ IV STA (00:59)
[2019-04-28] MEDS ORDERED: NITROGLYCERIN 50 MG/D5W (PMX) 250 ML IV STA (00:59)
--- NOTE | 2019-04-28 02:49 | ERD ---
ER Documentation Chief Complaint Chief Complaint Respiratory Distress, sudden onset x30 minutes ago. HPI 63-year-old gentleman who presents to the emergency room with respiratory distress, significantly elevated blood pressure. He has no cardiac history and has a pacemaker. He has been here before for respiratory failure hypertensive emergency. Patient is describing significant shortness of breath but having trouble speaking. He is on CPAP. Remainder of HPI is very limited given critical nature. ROS Critical Medications Home Meds Reported Medications Amiodarone Hcl* (Amiodarone Hcl*) 200 Mg Tablet, 200 MG PO DAILY, #30 TAB 01/09/19 Clopidogrel Bisulfate (Clopidogrel) 75 Mg Tablet, 75 MG PO DAILY, #30 TAB 01/09/19 Atorvastatin* (Atorvastatin*) 80 Mg Tablet, 80 MG PO QHS, #30 TAB 01/09/19 Pantoprazole* (Pantoprazole*) 40 Mg Tablet.dr, 40 MG PO AC BREAKFAST, TAB 01/09/19 Aspirin* (Aspirin* EC) 81 Mg Tablet.dr, 81 MG PO DAILY, TAB 01/09/19 Hydralazine Hcl* (Apresoline*) 50 Mg Tab, 50 MG PO BID, #120 TAB 01/09/19 Cilostazol* (Cilostazol*) 100 Mg Tablet, 100 MG PO BID, TAB 01/09/19 Ticagrelor* (Brilinta*) 90 Mg Tablet, 90 MG PO Q12, TAB 01/09/19 Insulin Aspart* (Novolog Insulin Pen*) 100 Unit/Ml Soln, 0 SC .SLIDING SCALE AC, EA 01/09/19 Carvedilol* (Carvedilol*) 25 Mg Tablet, 25 MG PO BID, #60 TAB 01/09/19 Amlodipine Besylate* (Amlodipine Besylate*) 2.5 Mg Tablet, 2.5 MG PO DAILY, #30 TAB 01/09/19 Isosorbide Dinitrate* (Isordil*) 10 Mg Tablet, 10 MG PO TID, TAB 01/09/19 Ezetimibe* (Zetia*) 10 Mg Tablet, 10 MG PO HS, TAB 01/09/19 Spironolactone* (Aldactone*) 25 Mg Tablet, 25 MG PO BID, #60 TAB 01/09/19 Fluticasone/Umeclidin/Vilanter (Trelegy Ellipta 100-62.5-25) 1 Each Blst.w.dev, 1 EACH IH DAILY 01/09/19 Dapagliflozin Propanediol (Farxiga) 5 Mg Tablet, 5 MG PO DAILY, #30 TAB 01/09/19 Linagliptin/Metformin HCl (Jentadueto Xr 2.5 mg-1,000 mg) 1 Each Tab.bp.24h, 1 EACH PO BID, TAB 01/09/19 Duloxetine Hcl* (Duloxetine Hcl*) 60 Mg Capsule.dr, 60 MG PO DAILY, #30 CAP 01/09/19 Amitriptyline Hcl* (Amitriptyline Hcl*) 25 Mg Tablet, 25 MG PO QHS, #30 TAB 01/09/19 Losartan-Hydrochlorothiazide (Losartan-HCTZ) 100-25 Mg Tab, 1 TAB PO DAILY, TAB 01/09/19 Gabapentin* (Gabapentin*) 300 Mg Capsule, 300 MG PO TID, #90 CAP 01/09/19 Ibuprofen* (Ibuprofen*) 600 Mg Tablet, 600 MG PO BID PRN for PAIN AND/OR INFLAMMATION, TAB 01/09/19 Bumetanide* (Bumetanide*) 1 Mg Tablet, 1 MG PO DAILY, TAB 01/09/19 Propranolol Hcl* (Propranolol Hcl*) 20 Mg Tablet, 20 MG PO DAILY, TAB 01/09/19 Gfybus-Tlnzcegt-Ghslabs* (Ladarius GUPTA* 24,000) 24,000 L-76,000-120,000 Unit C apsule.dr, 1 CAP PO WITH MEALS, CAP 01/09/19 Rosuvastatin Calcium* (Crestor*) 40 Mg Tablet, 40 MG PO QHS, #30 TAB 01/09/19 Icosapent Ethyl (VASCEPA) 1 Gm Capsule, 1 GM PO QID, CAP 01/09/19 Allergies Allergies: Coded Allergies: No Known Allergy (Unverified , 01/08/19) PMhx/Soc History of Surgery: Yes (Angioplasty 07/23/18; pacemeaker) Anesthesia Reaction: No Hx Neurological Disorder: No Hx Respiratory Disorders: Yes Hx Cardiac Disorders: Yes (htn chf mi) Hx Psychiatric Problems: No Hx Miscellaneous Medical Probl: No Hx Alcohol Use: Yes Hx Substance Use: No Hx Tobacco Use: Yes Smoking Status: Former smoker FmHx Family History: diabetes Physical Exam Vitals Vital Signs Date Temp Pulse Resp B/P (MAP) Pulse Ox O2 O2 Flow FiO2 Time Delivery Rate 04/28/19 60 02:05 04/28/19 97.8 113 30 203/110 90 01:10 (141) 04/28/19 97.8 110 30 203/110 97 BIPAP 01:10 (141) 04/28/19 113 97 100 01:06 Physical Exam General: Respiratory distress with increased work of breathing Head: Normocephalic, atraumatic. Eyes: Pupils equally reactive, EOM intact ENT: Moist mucous membranes Neck: Supple, no lymphadenopathy Respiratory: Rales bilaterally, increased work of breathing Cardiovascular: Slight tachycardia, no murmurs, rubs, or gallops Abdominal: Soft, non-tender, non-distended, no peritoneal signs : Deferred MSK: No edema, no unilateral swelling, 5/5 strength Neurologic: Alert and oriented, limited exam but moving all extremities Skin: No rash Psych: Normal mood Result Diagram: 04/28/19 0110 04/28/19 0110 Results 24 hrs Laboratory Tests Test 04/28/19 01:10 04/28/19 01:13 04/28/19 01:18 White Blood Count 11.7 10^3/ul Red Blood Count 3.60 10^6/ul Hemoglobin 10.4 g/dl Hematocrit 34.6 % Mean Corpuscular Volume 96.1 fl Mean Corpuscular Hemoglobin 28.9 pg Mean Corpuscular 30.1 g/dl Hemoglobin Concent Red Cell Distribution Width 15.1 % Platelet Count 344 10^3/UL Mean Platelet Volume 10.0 fl Immature Granulocytes % 0.600 % Neutrophils % 52.3 % Lymphocytes % 33.8 % Monocytes % 9.0 % Eosinophils % 3.7 % Basophils % 0.6 % Nucleated Red Blood Cells % 0.0 /100WBC Immature Granulocytes # 0.070 10^3/ul Neutrophils # 6.1 10^3/ul Lymphocytes # 4.0 10^3/ul Monocytes # 1.1 10^3/ul Eosinophils # 0.4 10^3/ul Basophils # 0.1 10^3/ul Nucleated Red Blood Cells # 0.0 10^3/ul Prothrombin Time 12.7 Sec Prothrombin Time Ratio 1.0 INR International 0.94 Normalized Ratio Activated 25.3 Sec Partial Thromboplast Time Sodium Level 146 mmol/L Potassium Level 4.6 mmol/L Chloride Level 108 mmol/L Carbon Dioxide Level 18 mmol/L Anion Gap 20 Blood Urea Nitrogen 27 mg/dl Creatinine 2.69 mg/dl Est Glomerular Filtrat 24 mL/min Rate mL/min Glucose Level 280 mg/dl Calcium Level 9.8 mg/dl Troponin I 0.031 ng/ml B-Type Natriuretic Peptide 2320 PG/ML Bedside Glucose 322 mg/dL Blood Gas Specimen Source Blood arterial Arterial Blood Date Drawn 04/28/2019 1:30:11 AM Arterial Blood pH 7.237 (Temp corrected) Arterial Blood pCO2 51.8 mmhg (Temp correct) Arterial Blood pO2 68.4 mmHG (Temp corrected) Arterial Blood HCO3 21.6 mmol/L Arterial Blood Base Excess -5.9 mmol/L Arterial Blood 87.1 mmHG Oxygen Saturation Troy Test ACCEPTAB Arterial Blood Gas Right Radial Puncture Site Arterial 0.2 % Blood Carboxyhemoglobin Arterial Blood Methemoglobin 0.5 % Blood Gas A-a O2 Differential 592.8 mmHg Oxyhemoglobin Percent 86.5 % Blood Gas Temperature 37.0 C Blood Gas Respiration Rate 14.0 Blood Gas Actual 22 Respiration Rate Blood Gas Modality MASK - BIPAP FiO2 100.0 % Blood Gas Pressure Support 10 Blood Gas IPAP/EPAP Ratio 15/5 Blood Gas Critical Value Rebecca CASPER MD Read Back Blood Gas Notified Whom RAMIRO Blood Gas Notified Time 04/28/2019 1:44:02 AM Current Medications Medications Dose Sig/Constance Start Time Status Last (Trade) Ordered Route PRN Stop Time Admin Dose Reason Admin 250 ml @ 6 ONCE STAT 04/28/19 Nitroglycerin mls/hr IV 00:59 04/29/19 / Dextrose 18:38 Morphine 2 mg ONCE STAT 04/28/19 DC 04/28/19 Sulfate IV 00:59 04/28/19 01:27 (morphine) 01:02 Ondansetron 4 mg ONCE STAT 04/28/19 DC 04/28/19 HCl (Zofran IV 00:59 04/28/19 01:27 Inj) 01:02 Furosemide 60 mg ONCE STAT 04/28/19 DC 04/28/19 (Lasix) IV 00:59 04/28/19 01:27 01:02 Procedures/MDM EKG, MONITORS, & DIAGNOSTIC IMAGING: EKG: I reviewed and interpreted a 12-lead EKG. Rhythm: paced rhythm ST Changes: No contiguous ST segment elevations T waves: No contiguous T wave inversions Impression: [No evidence of acute cardiac ischemia] Repeat EKG: EKG: I reviewed and interpreted a 12-lead EKG. Rhythm: Normal sinus rhythm ST Changes: No contiguous ST segment elevations T waves: No contiguous T wave inversions Impression: [No evidence of acute cardiac ischemia] Chest x-ray: I reviewed and interpreted a 1 view of the chest Mediastinum: No enlargement Cardiac silhouette: cardiomegaly Airspace: bilateral pulmonary edema Bones: No evidence of fracture PROCEDURES: [None] LAB INTERPRETATION: * Negative troponin, chronic renal insufficiency, hyperglycemia MEDICAL DECISION MAKING: The patient's history, physical exam and clinical presentation is concerning for acute respiratory failure in the setting of hypertensive emergency and severe hypertension. Patient requires significant preload and afterload reduction, positive pressure ventilation. Based on the patient's clinical exam and history and risk factors, I have a much lower clinical concern for pulmonary embolism, acute aortic dissection, pneumothorax, pneumonia, cardiac tamponade ER COURSE: * Patient immediately placed on positive pressure ventilation, nitroglycerin drip, morphine, Lasix provided. * Patient had dramatic improvement in blood pressure and respiratory effort. ABG is reassuring, continue to trend and monitor. * Patient has hyperglycemia but no evidence of diabetic ketoacidosis. Borderline anion gap is likely secondary to metabolic acidosis, increased work of breathing and renal insufficiency. Subcutaneous Humalog provided. Patient is not a candidate for fluid resuscitation given already having volume overload and respiratory failure. CONSULTATION: [None] DISPOSITION PLAN: Intensive care unit Accepting care team and consultations: I discussed the current laboratory data, diagnostic imaging and emergency care provided. Admitting team: Dr. Chirinos Admitting team indication: Insurance directed Critical Care Note: Total time: 40 minutes Indication/Organ System Threat: Acute respiratory failure I spent the above amount of critical care time with the patient, not including billable procedures. This included chart review, consultations, repeat bedside evaluations, and titration of appropriate medications to prevent cardiopulmonary or respiratory collapse. Departure Diagnosis: Primary Impression: Acute respiratory failure Respiratory failure complication: unspecified whether with hypoxia or hypercapnia Qualified Codes: J96.00 - Acute respiratory failure, unspecified whether with hypoxia or hypercapnia Additional Impressions: Hypertensive emergency Acute pulmonary edema Hyperglycemia Acute CHF Heart failure type: diastolic Qualified Codes: I50.31 - Acute diastolic (congestive) heart failure Chronic renal insufficiency Chronic kidney disease stage: unspecified stage Qualified Codes: N18.9 - Chronic kidney disease, unspecified Condition: Critical TYLOR CASPER MD Apr 28, 2019 02:49
[2019-04-28] MEDS: ACCU-CHEK XX ONE ×2 (03:36→04:07)
[2019-04-28] MEDS ORDERED: INSULIN LISPRO 100 UNIT/ML VIAL SC ONE (04:00)
[2019-04-28] MEDS ORDERED: PANTOPRAZOLE (EC) 40 MG TAB PO ONE (06:00)
[2019-04-28] MEDS ORDERED: morphine 2 MG INJ IV PRN (06:00)
[2019-04-28] MEDS ORDERED: ONDANSETRON 4 MG INJ IV PRN (06:00)
[2019-04-28] MEDS ORDERED: ALBUTEROL/IPRATROPIUM (NEB) 3 ML AMP HHN ONE (06:03)
[2019-04-28] MEDS: PANTOPRAZOLE (EC) 40 MG TAB PO SCH (06:43)
[2019-04-28] MEDS ORDERED: GLUCOSE GEL 15 GRAM TUBE PO PRN ×2 (07:00)
[2019-04-28] MEDS ORDERED: DEXTROSE 50% 50 ML SYRINGE IV PRN ×2 (07:00)
[2019-04-28] MEDS ORDERED: GLUCOSE GEL 15 GRAM TUBE BUCCAL PRN (07:00)
[2019-04-28] MEDS ORDERED: GLUCAGON 1 MG INJ IM PRN (07:00)
[2019-04-28] MEDS: CREON (24K-76K-120K) 1 CAP PO SCH ×3 (07:34→17:46)
[2019-04-28] MEDS: INSULIN ASPART [NOVOLOG] 3 ML PEN SC SCH ×5 (07:35→17:51)
[2019-04-28] MEDS ORDERED: TICAGRELOR 90 MG TABLET PO SCH (09:00)
[2019-04-28] MEDS ORDERED: BUMETANIDE 1 MG TAB PO SCH (09:00)
[2019-04-28] MEDS ORDERED: LIDOCAINE 1% (MPF) 5 ML VIAL ONE (09:41)
[2019-04-28] MEDS: GABAPENTIN 300 MG CAP PO SCH ×3 (10:02→21:02)
[2019-04-28] MEDS: CILOSTAZOL 100 MG TAB PO SCH ×2 (10:02→21:02)
[2019-04-28] MEDS: AMIODARONE 200 MG TAB PO SCH (10:02)
[2019-04-28] MEDS: DULOXETINE 30 MG CAP DR PO SCH (10:03)
[2019-04-28] MEDS: CLOPIDOGREL 75 MG TAB PO SCH (10:03)
[2019-04-28] MEDS: AMLODIPINE 2.5 MG TAB PO SCH (10:03)
[2019-04-28] MEDS: ASPIRIN (EC) 81 MG TAB PO SCH (10:03)
[2019-04-28] MEDS: ISOSORBIDE DINITRATE 10 MG TAB PO SCH ×3 (10:04→21:02)
--- NOTE | 2019-04-28 14:21 | CONS ---
DATE OF ADMISSION: 04/28/2019 DATE OF CONSULTATION: 04/28/2019 TYPE OF CONSULTATION: Nephrology. REASON FOR CONSULTATION: Acute kidney injury, CKD. PHYSICIAN REQUESTING CONSULT: Elbert Chirinos MD HISTORY OF PRESENT ILLNESS: This is a 63-year-old male with a past medical history of chronic kidney disease stage III-B/IV with a baseline creatinine around 2.5 to 3 mg/dL, history of diabetes, histor y of AFib, history of coronary artery disease, history of reactive airway disease, history of CHF, wh o presents to [facility] with respiratory distress and shortness of breath. The pa manpreet started developing shortness of breath and elevated blood pressures suddenly. The patient on a rrival to the emergency room had a chest x-ray which showed findings of heart failure with bilateral airspace disease and right pleural effusion. The patient was noted to be hypertensive. The patient has systolic pressures greater than 200. The patient was placed on nitroglycerin drip and admitted t o intensive care unit. While in intensive care unit, the patient had a thoracentesis with approximat jen 1 liter fluid removed. There were no reports of any hemoptysis, hematemesis or hematochezia. In terms of patient's renal history, the patient has underlying chronic kidney disease with previous baseline creatinine around 2.6 to 3.0 mg/dL. On admission, the patient has creatinine of 2.69 mg/dL. The patient denied any hematuria, any rashes. PAST MEDICAL HISTORY: As stated above, history of chronic kidney disease stage IV, history of hypert ension, coronary artery disease, BPH, history of heart disease, peripheral vascular disease, COPD. PAST SURGICAL HISTORY: Status post cardiac catheterization, status post pacemaker placement. FAMILY HISTORY: No family history of kidney disease. SOCIAL HISTORY: Positive tobacco use. ALLERGIES: NONE. MEDICATIONS: Have been reviewed. REVIEW OF SYSTEMS: A 14-point review of systems conducted. Pertinent positives stated in HPI, other troy negative. PHYSICAL EXAMINATION: VITAL SIGNS: Blood pressure is , respiration 16, pulse 92, temperature 98.0. HEENT: Head is normocephalic. NECK: Supple. HEART: Regular rate. LUNGS: Show diminished breath sounds at base. ABDOMEN: Soft, nontender to palpation without rebound or guarding. EXTREMITIES: Negative for clubbing, cyanosis. Trace edema. DERMATOLOGIC: No rashes. MUSCULOSKELETAL: No joint effusion. NEUROLOGIC: No focal deficits. LABORATORY DATA: Have been reviewed. IMAGING STUDIES: Have been reviewed. ASSESSMENT AND PLAN: This is a 63-year-old male who presents with: 1. Chronic kidney disease stage IV with a baseline creatinine around 2.5 to 3.0 mg/dL. The patient' s renal function appears to be currently at baseline. At this point, we would continue current treat ment plan, supportive care, renally dose all meds, continue current blood pressure regimen. We would wean off nitroglycerin drip. We will monitor closely to avoid significant hemodynamic alterations. We would continue diuretic therapy. We will monitor renal function and electrolytes closely. 2. Hypertensive urgency, etiology in part due to increased intravascular volume. Continue current m edical management. Continue blood pressure regimen. Continue diuretic therapy and monitor closely. 3. Acute decompensated heart failure. The patient is clinically volume overload on exam. Clinicall y improving. Continue current medical management. Consider repeat 2D echo. Continue diuretic regim en. 4. Acute hypoxic respiratory failure secondary to pulmonary edema and pleural effusion. The patient has been improving. Continue medical management. 5. Right pleural effusion, status post thoracentesis. Continue to monitor. 6. Anemia. Monitor hemoglobin and hematocrit levels. 7. Mineral bone disorder. Monitor calcium and phosphorus levels. 8. Coronary artery disease. Continue current treatment plan. 9. Dyslipidemia. Continue statin therapy. 10. Diabetes. Continue current insulin regimen. 11. Systemic inflammatory response syndrome. Continue to monitor. 12. History of EtOH abuse and liver disease. Continue to monitor closely. Thank you, Dr. Chirinos, for this interesting consult. It will be a pleasure to follow patient with you throughout the hospital course. Dictated By: LILY VASQUEZ DO NR/NTS Conf#: [id number] DID#: [id number] CC: RONA TOUSSAINT MD; ELBERT CHIRINOS MD;*End*
--- NOTE | 2019-04-28 14:27 | CONS ---
DATE OF ADMISSION: 04/28/2019 DATE OF CONSULTATION: TYPE OF CONSULTATION: Pulmonary. REASON FOR CONSULTATION: Shortness of breath. Thank you, Dr. Diana, for this consultation. HISTORY OF PRESENT ILLNESS: This is a 63-year-old gentleman with history of congestive cardiac failu re, recurrent pulmonary edema and pleural effusion, status post thoracentesis in the past, most recen tly discharged on 01/10/2019. Past medical history includes coronary artery disease, acute kidney in jury, history of liver cirrhosis secondary to EtOH and AICD placement. The patient on admission was found to have moderate pleural effusion, underwent emergent thoracentesi s with 1000 mL removed from the right lung without complication. The patient states his breathing is significantly improved. PAST MEDICAL HISTORY: As above. MEDICATIONS: Per chart. ALLERGIES: NONE. SOCIAL HISTORY: Ex-smoker, no alcohol or history of drug use. FAMILY HISTORY: Noncontributory. REVIEW OF SYSTEMS: A 12-point review of systems was negative other than that mentioned above. PHYSICAL EXAMINATION: GENERAL: Well-nourished, well-developed gentleman, comfortable at rest, in no acute distress. VITAL SIGNS: Temperature 98, pulse 74, blood pressure 122/75, O2 saturation 96% on 4 liters' nasal c annula. NECK: Supple. No JVD or lymphadenopathy. CARDIAC: S1, S2. No added sounds or murmurs. CHEST: Diminished air entry bilaterally. ABDOMEN: Soft, nontender. No guarding or rebound. EXTREMITIES: No cyanosis, clubbing, edema. NEUROLOGIC: Grossly intact. No focal deficits. LABORATORY DATA: White count 11.7, hemoglobin 10.4, platelets 344. BUN 27, creatinine 2.69. BNP el evated at 2320. Troponin is negative. Arterial blood gas this morning: pH 7.23, pCO2 of 51, pO2 of 68 on bilevel ventilation. DIAGNOSTIC DATA: Chest x-ray had demonstrated right pleural effusion now status post thoracentesis. IMPRESSION AND PLAN: 1. Recurrent right pleural effusion, likely secondary to combination of underlying cirrhosis and con gestive cardiac failure with AICD. 2. Status post hypoxemic and hypercapnic respiratory failure. 3. Chronic EtOH. 4. Chronic kidney disease. The patient will require: 1. Continue diuretics. 2. Supplemental O2. 3. Cardiology recommendations with treatment for hypertension. 4. DVT and GI prophylaxis. 5. If pleural effusion requires frequent thoracentesis which it appears to be heading towards, the p atient may benefit from PleurX catheter. Dictated By: RONA TOUSSAINT MD SV/GE Conf#: [id number] DID#: [id number] CC: ELBERT DIANA MD;*EndCC*
--- NOTE | 2019-04-28 17:02 | CONS ---
DATE OF ADMISSION: 04/28/2019 DATE OF CONSULTATION: 04/28/2019 TYPE OF CONSULTATION: Cardiology. REASON FOR CONSULTATION: Congestive heart failure exacerbation, hypertension. REQUESTING PHYSICIAN: Elbert Chirinos MD HISTORY OF PRESENT ILLNESS: Mr. Dominique is a 63-year-old male with history of ST elevation IA, stat us post PTCA and stent placement in 07/2018 to circumflex, cardiomyopathy with decreased left ventric ular ejection fraction improved by echo in 10/2018 up to 45% after dropping to 20% to 25% after STEMI , hypertension, dyslipidemia, prior tobacco intake, quit x3 months, peripheral arterial disease, prio r ICD placement, COPD, who presented with complaints of worsening shortness of breath. Upon arrival in the emergency department, temperature of 97.8, blood pressure markedly elevated 203/110, pulse 113 , satting 97%. The patient's labs were notable for white blood cell count of 11.7, hemoglobin 10.4, platelet count 344, a sodium of 146, potassium 4.6, creatinine 2.69, BUN of 27, glucose 280, BNP of 2 220, troponin negative, INR 0.94. ABG revealing a pH of 7.237, a pO2 of 68, a pCO2 of 51. UA is neg ative. The patient underwent a chest x-ray revealing vascular congestion and abdominal ultrasound re vealing no ascites and then subsequently thoracentesis of -1000 mL. The patient's electrocardiogram revealed normal sinus rhythm, rate of 89, normal axis, borderline IVCD, lateral T-wave inversion. Th e patient subsequently has been admitted to the ICU where at this time has not required BiPAP and is off drips. Denies chest pain. Has improved shortness of breath. PAST MEDICAL HISTORY: As above in HPI. MEDICATIONS CURRENTLY IN HOSPITAL: 1. Elavil. 2. Lipitor 80 mg at bedtime. 3. Zetia 10 mg at bedtime. 4. Insulin sliding scale. 5. Amiodarone 200 mg daily. 6. Norvasc 2.5 a day. 7. Aspirin 81 mg daily. 8. Bumex 1 mg daily. 9. Carvedilol 25 mg p.o. b.i.d. 10. Pletal 100 mg b.i.d. 11. Plavix 75 mg daily. 12. Cymbalta. 13. Gabapentin. 14. Hydralazine 50 mg b.i.d. 11. Isordil 10 mg t.i.d. 12. Brilinta 90 q.12. 13. Protonix. ALLERGIES: NO KNOWN DRUG ALLERGIES. SOCIAL HISTORY: Prior tobacco, quit x3 months. Social EtOH. No illicit drug use. FAMILY HISTORY: No history of sudden cardiac or early CAD. REVIEW OF SYSTEMS: As above in HPI. CONSTITUTIONAL: No fevers, chills. PULMONARY: Respiratory distress, improved. GASTROINTESTINAL: No vomiting. GENITOURINARY: Renal failure. PSYCHIATRIC: No documented psych history. NEUROLOGIC: No documented history of CVA. History anoxic encephalopathy, now improved. ENDOCRINE: Diabetes mellitus. PHYSICAL EXAMINATION: VITAL SIGNS: Temperature 98.5, blood pressure 122/73, pulse 90/74, respiratory rate 21, satting 100% on 4 liters. GENERAL: The patient is alert, awake, in no acute distress. NECK: JVP is approximately 9 cm of water. CHEST: Fair movement throughout with mild decreased breath sounds at bases bilaterally. HEART: Regular rate and rhythm. Normal S1, S2. I/ systolic murmur, laterally displaced PMI. ABDOMEN: Positive bowel sounds, soft. EXTREMITIES: No significant pitting edema. A 1+ pulses, posterior bilateral tibial. IMPRESSION: 1. Congestive heart failure, systolic, acute on chronic. 2. History of PTCA and stent placement to circumflex for ST elevation myocardial infarction in 01/11 18. 3. Hypertension, reasonable control at this time. 4. Dyslipidemia. 5. History of ST-elevation myocardial infarction in 07/2018. 6. Anemia. 7. Leukocytosis. 8. Renal failure. RECOMMENDATIONS: 1. At this time, we would maintain the patient on close monitoring in ICU or possibly telemetry at t his time. 2. Continue the patient's Bumex diuresis, possible need to increase, watch creatinine closely. 3. We would reassess patient's ejection fraction with 2D echo. 4. We would complete the patient's rule out for myocardial infarction and thus send a final troponin . 5. Continue the patient's baseline amiodarone and to maintain sinus rhythm. 6. Continue the patient's current carvedilol, hydralazine, Isordil for treatment of cardiomyopathy i n the absence of MARY inhibitors and ARB in the setting of renal failure. 7. The patient states he is taking Plavix at home but is not on Brilinta, so we would continue the p atient's aspirin and Plavix and defibrillator at this time. 8. The patient's statin and Zetia and adjust it according to a fasting lipid panel. 9. Follow the patient's blood sugars closely. Thank you for allowing me to take part in the care of this patient. I will continue to follow him ve ry closely with you with further recommendations will be made as the patient progresses through his [facility]. Dictated By: SRINIVAS LEWIS/GE Conf#: [id number] DID#: [id number] CC: RONA TOUSSAINT MD; ELBERT CHIRINOS MD;*End*
[2019-04-28] MEDS ORDERED: INSULIN ASPART [NOVOLOG] 3 ML PEN SC SCH (17:05)
[2019-04-28] MEDS: Insulin NOVOLOG SS MODERATE Algorithm (SS with meals and bedtime) SC SCH ×2 (17:51→21:00)
[2019-04-28] MEDS: BUMETANIDE 1 MG TAB PO SCH (18:03)
--- NOTE | 2019-04-28 20:58 | HP ---
Date/Time of Note Date/Time of Note DATE: 04/28/19 TIME: 20:51 Assessment/Plan VTE Prophylaxis Risk score (from Ns)>0 risk: 3 SCD applied (from Ns): Yes SCD contraindicated: other (on) Pharmacological prophylaxis: LMWH Lines/Catheters IV Catheter Type (from [facility]): Peripheral IV Central line still needed: No Urinary Cath still in place: No Reason Cath still needed: urinary retention Assessment/Plan Assessment/Plan 1. Pulmonary edema- IHD angina; s/p recurrent acute stemi and a Hx of V- fib cardiac arrest: s/p shock, amiodarone and epinephrine in the field before ROSC-PTCA with stenting of mid LCx; no new onset pulmonary edema with right hydrothorax 2. ZBIGNIEW -IV ( Hx of contrast use received for cardiac cath .Judicious fluid management. Creatinine decreased from 2.6to 1.9 now again went up to 2.69; 3. Severe lactic acidosis with the hx of elevation and now the level is 7: Secondary to copd exacerbation, uti. 4. IHD angina; s/p acute stemi; V-fib cardiac arrest: 06/2018;s/p cardiogenic shock, amiodarone and epinephrine in the field before ROSC-PTCA with stenting of mid LCxS/p intubation for cardiac arrest and respiratory failure and successful extubation 5. Hypertension: nitro drip stopped, cont. BP meds. Adjust as needed 6. COPD- history of heavy smoking and current smoking a pack/day. nicotine addiction. 7. S/P recurrent episodes of pulmonary edema the first one 07/23/18 at about 4pm with resuscitative measures(iv lasix,02; BIPAP,solumedrol) improved. 2 more admissions for the same reason. History of smoking and using etoh more than usual in the past. 8.Dyslipidemia 9.Anoxic encephalopathy 10.Aspiration pneumonia? 11.BPH 12.Liver cirrhosis(alcoholic). 13.PAD with the hx of stenting of arteries of extremities 14.ED 15.ATN with creatinine level of more than 6; came down to 2.6; the last one as outpatient 1,9 in the office 3 sdays ago. decrease of creatinine 16.Constipation 17.Liver cirrhosis, probably alcoholic 18.Memory impairment 19.S/P icd implantation on left s/c area. 20.Right more than pleural effusion. Status post thoracentesis. 21. Incomplete data. Result Diagram: 04/28/19 0110 04/28/19 0110 Results 24hrs Laboratory Tests Test 04/28/19 01:10 04/28/19 01:13 04/28/19 01:18 04/28/19 03:36 White Blood Count 11.7 #H Red Blood Count 3.60 L Hemoglobin 10.4 L Hematocrit 34.6 L Mean Corpuscular 96.1 Volume Mean Corpuscular 28.9 L Hemoglobin Mean Corpuscular 30.1 L Hemoglobin Concen t Red Cell 15.1 H Distribution Width Platelet Count 344 # Mean Platelet 10.0 Volume Immature 0.600 H Granulocytes % Neutrophils % 52.3 Lymphocytes % 33.8 Monocytes % 9.0 Eosinophils % 3.7 Basophils % 0.6 Nucleated Red 0.0 Blood Cells % Immature 0.070 H Granulocytes # Neutrophils # 6.1 Lymphocytes # 4.0 H Monocytes # 1.1 H Eosinophils # 0.4 Basophils # 0.1 Nucleated Red 0.0 Blood Cells # Prothrombin Time 12.7 Prothrombin Time 1.0 Ratio INR International 0.94 Normalized Ratio Activated 25.3 Partial Thrombopl ast Time Sodium Level 146 H Potassium Level 4.6 Chloride Level 108 Carbon Dioxide 18 L Level Anion Gap 20 H Blood Urea 27 H Nitrogen Creatinine 2.69 H Est Glomerular 24 L Filtrat Rate mL/min Glucose Level 280 H Calcium Level 9.8 Troponin I 0.031 B-Type 2320 H Natriuretic Peptide Bedside Glucose 322 H 246 H Blood Gas Blood arterial Specimen Source Arterial Blood 04/28/2019 1:30:11 Date Drawn AM Arterial Blood pH 7.237 *L (Temp corrected) Arterial Blood 51.8 H pCO2 (Temp correct) Arterial Blood 68.4 L pO2 (Temp corrected) Arterial Blood 21.6 L HCO3 Arterial Blood -5.9 L Base Excess Arterial Blood 87.1 L Oxygen Saturation [place] Test ACCEPTAB Arterial Blood Right Radial Gas Puncture Site Arterial 0.2 Blood Carboxyhemo globin Arterial Blood 0.5 Methemoglobin Blood Gas A-a O2 592.8 H Differential Oxyhemoglobin 86.5 L Percent Blood Gas 37.0 Temperature Blood Gas 14.0 Respiration Rate Blood Gas Actual 22 Respiration Rate Blood Gas MASK - BIPAP Modality FiO2 100.0 Blood Gas 10 Pressure Support Blood Gas 15/5 IPAP/EPAP Ratio Blood Gas Rebecca CASPER MD Critical Value Read Back Blood Gas RAMIRO Notified Whom Blood Gas 04/28/2019 1:44:02 Notified Time AM Test 04/28/19 06:19 04/28/19 07:45 04/28/19 07:48 04/28/19 08:17 Bedside Glucose 114 100 Hemoglobin A1c 6.5 H Creatine Kinase 172 Creatine Kinase 1.3 Index Creatinine Kinase 2.19 MB (Mass) Troponin I 0.068 Test 04/28/19 09:00 04/28/19 10:30 04/28/19 12:40 04/28/19 12:57 Pathologist YES Review (Hematolog y) Body Fluid Type PLEURAL Body Fluid Volume 1000.0 Body Fluid Color LIDA Body Fluid SLIGHTLY HAZY Appearance Body Fluid WBC 382 Body Fluid RBC 2000 (Auto) Body Fluid 8.6 Polynuclear WBCs (%) Body Fluid 91.4 Mononuclear Cells % Auto Urine Color STRAW Urine Clarity CLEAR Urine pH 5.0 Urine Specific 1.008 [place] Urine Ketones NEGATIVE Urine Nitrite NEGATIVE Urine Bilirubin NEGATIVE Urine NEGATIVE Urobilinogen Urine Leukocyte NEGATIVE Esterase Urine Microscopic 2 RBC Urine Microscopic 8 H WBC Urine Hemoglobin NEGATIVE Urine Random 48.05 Creatinine Urine Random 120 H Sodium Urine Glucose NEGATIVE Urine Total 108.0 H Protein Bedside Glucose 137 Creatine Kinase 156 Creatine Kinase 1.5 Index Creatinine Kinase 2.36 MB (Mass) Troponin I 0.068 Test 04/28/19 17:37 04/28/19 18:08 Bedside Glucose 234 H Creatine Kinase 127 Creatine Kinase 1.5 Index Creatinine Kinase 1.95 MB (Mass) Troponin I 0.054 HPI/ROS Admit Date/Time Admit Date/Time Apr 28, 2019 at 02:38 Hx of Present Illness This was taken from patient. Patient came to the office 2 days ago for routine blood work-up. 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 Morales about 10 days ago when cardiology work-up was done and stated that her heart is improving. Blood work-up in office had shown patient has very high level of cholesterol and fat along with elevation of her creatinine level was 2.6 the patient had acute renal failure with a creatinine level being above 4 which came down to below 2 unfortunately now clamped up he quit smoking I trust him but it is evident that he does not take his medications who he admits. He thinks that if he is not eating animal products that his cholesterol will come down. I explained the patient that it is not the way of bringing cholesterol down with level is about 300 and he had already documented heart attack is good cholesterol is low but cholesterol is high he agreed to take his medications. Doing fine until 3 to 4 days ago when gradually he realized his shortness of breath is getting worse. Yesterday was the worst day when he was unable to move and for about 3 to 4 hours he tried to lay down to relax and not to do anything actively to improve breathing however it got worse and worse finally 911 was called and he was admitted to the emergency room of [facility] with the pulmonary edema also found to have right-sided hydrothorax he was then underwent thoracentesis with more than a liter of fluid removal along with diuresis and significant improvement condition in terms of improving shortness of breath unfortunately he still wheezes ROS Subjective hx not possible: pt critical Constitutional: improved, chills, fatigue, nausea, poor po; No no complaints, No diaphoresis, No disoriented, No febrile, No weight change, No other Eyes: redness, visual change; No no complaints, No pain, No discharge, No other ENT: congestion, sore throat; No no complaints, No bleeding, No pain, No discharge, No dysphagia, No other Respiratory: cough, pleuritic pain, shortness of breath, sputum, wheezing; No no complaints, No pain, No other Cardiovascular: edema, lightheadedness, orthopenea, paroxysmal nocturnal dyspnea; No no complaints, No chest pain, No palpitations, No other Gastrointestinal: constipation, decreased appetite, nausea, passing stool; No no complaints, No pain, No blood, No diarrhea, No flatus, No vomiting, No other Genitourinary: dysuria; No no complaints, No bleeding, No discharge, No flank pain, No hematuria, No other Musculoskeletal: back pain, bone/joint pain, neck pain Skin: rash; No no complaints, No bruising, No erythema, No laceration, No pruritis, No skin lesions, No other Neurologic: confusion, dizziness, headache Endocrine: polyuria, polydypsia, dry skin; No no complaints, No temp intolerance, No weight change, No other Lymphatic: No no complaints, No adenopathy, No tender nodes, No lymphadema, No other PMH/Family/Social Past Medical History Medical History: angina, colitis, congestive heart failure, coronary artery disease, diabetes, diverticulitis, gallstones, GERD, GI bleed, hepatitis, high cholesterol, irritable bowel syndrome, pancreatitis, urinary tract infection Medications Current Medications Amiodarone HCl (Cordarone) 200 mg DAILY PO Last administered on 04/28/19 10:02; Admin Dose 200 MG; Start 04/28/19 at 09:00 Amitriptyline HCl (Elavil) 25 mg QHS PO ; Start 04/28/19 at 21:00 Amlodipine Besylate (Norvasc) 2.5 mg DAILY PO Last administered on 04/28/19 10:03; Admin Dose 2.5 MG; Start 04/28/19 at 09:00 Aspirin (Halfprin) 81 mg DAILY PO Last administered on 04/28/19 10:03; Admin Dose 81 MG; Start 04/28/19 at 09:00 Atorvastatin Calcium (Lipitor) 80 mg QHS PO ; Start 04/28/19 at 21:00 Carvedilol (Coreg) 25 mg BID PO Last administered on 04/28/19 10:04; Admin Dose 25 MG; Start 04/28/19 at 09:00 Cilostazol (Pletal) 100 mg BID PO Last administered on 04/28/19 10:02; Admin Dose 100 MG; Start 04/28/19 at 09:00 Clopidogrel Bisulfate (plaVIX) 75 mg DAILY PO Last administered on 04/28/19 10:03; Admin Dose 75 MG; Start 04/28/19 at 09:00 Duloxetine HCl (Cymbalta) 60 mg DAILY PO Last administered on 04/28/19 10:03; Admin Dose 60 MG; Start 04/28/19 at 09:00 EZETIMIBE (Zetia) 10 mg HS PO ; Start 04/28/19 at 21:00 Gabapentin (Neurontin) 300 mg TID PO Last administered on 04/28/19 13:17; Admin Dose 300 MG; Start 04/28/19 at 09:00 Hydralazine HCl (Apresoline) 50 mg BID PO Last administered on 04/28/19 10:02; Admin Dose 50 MG; Start 04/28/19 at 09:00 Insulin Aspart (Novolog Insulin Pen) 6 unit WITH MEALS SC Last administered on 04/28/19 17:51; Admin Dose 6 UNIT; Start 04/28/19 at 07:35 Isosorbide Dinitrate (Isordil) 10 mg TID PO Last administered on 04/28/19at 13:17; Admin Dose 10 MG; Start 04/28/19 at 09:00 Amylase/Lipase/ Protease (Creon ([id number])) 1 cap WITH MEALS PO Last administered on 04/28/19at 17:46; Admin Dose 1 CAP; Start 04/28/19 at 07:35 Pantoprazole (Protonix Tab) 40 mg AC BREAKFAST PO ; Start 04/28/19 at 07:00 Ondansetron HCl (Zofran Inj) 4 mg Q6H PRN IV nausea,vomiting.; Start 04/28/19 at 06:00 Morphine Sulfate (morphine) 2 mg Q3HWA PRN IV pain and severe sob.; Start 04/28/19 at 06:00 Miscellaneous Information 1 ea NOTE XX ; Start 04/28/19 at 07:00 Glucose (Glutose) 15 gm Q15M PRN PO DECREASED GLUCOSE; Start 04/28/19 at 07:00 Glucose (Glutose) 22.5 gm Q15M PRN PO DECREASED GLUCOSE; Start 04/28/19 at 07:00 Dextrose (D50w Syringe) 25 ml Q15M PRN IV DECREASED GLUCOSE; Start 04/28/19 at 07:00 Dextrose (D50w Syringe) 50 ml Q15M PRN IV DECREASED GLUCOSE; Start 04/28/19 at 07:00 Glucagon (Glucagen) 1 mg Q15M PRN IM DECREASED GLUCOSE; Start 04/28/19 at 07:00 Glucose (Glutose) 15 gm Q15M PRN BUCCAL DECREASED GLUCOSE; Start 04/28/19 at 07:00 Insulin Aspart (Novolog Insulin Pen) (Adult SC Insulin - Moder... WITH MEALS BEDTIME SC Last administered on 04/28/19at 17:51; Admin Dose 6 UNIT; Start 04/28/19 at 17:35 Diagnostic Test (Pha) (Accu-Chek) 1 ea 02 XX ; Start 04/29/19 at 02:00 Bumetanide (Bumex) 1 mg BID DIURETICS PO Last administered on 04/28/19at 18:03; Admin Dose 1 MG; Start 04/28/19 at 18:00 Insulin Glargine (Lantus) 12 units HS SC ; Start 04/28/19 at 21:00 Coded Allergies: No Known Allergy (Unverified , 04/28/19) Past Surgical History Past Surgical Hx: angioplasty, other Family History Significant Family History: heart disease, COPD, diabetes Social History Alcohol Use: rarely Smoking Status: Former smoker Drug Use: none Exam/Review of Systems Vital Signs Vitals Vital Signs Date Temp Pulse Resp B/P (MAP) Pulse Ox O2 O2 Flow FiO2 Time Delivery Rate 04/28/19 98.2 83 14 156/73 94 Nasal 20:00 (100) Cannula 04/28/19 4.0 33 08:40 Exam Constitutional: alert, oriented, well developed, distress, frail; No non-verbal, No other Psych: anxiety, depression; No no complaints, No nl mood/affect, No suicidal, No other Head: No normocephalic, No atraumatic, No lacerations, No hematomas, No other Eyes: EOMI, nl lids, PERRL; No nl conjunctiva, No nl sclera, No icteric, No fundi, disc, No other ENMT: nl lips & teeth, nl nasal mucosa & septum; No nl external ears & nose, No mucosa pink and moist, No intubated, No tympanic membranes, No other Neck: jvd, bruits, nuchal rigidity; No supple, No non-tender, No masses, No thyromegaly, No other Respiratory: congested cough, crackles/rales, diminished breath sounds, wheezing; No clear to auscultation, No normal air movement, No intercostal retraction, No labored breathing, No respirations, No tactile fremitus, No other Cardiovascular: nl pulses, systolic murmur; No regular rate and rhythm, No bruits, No diastolic murmur, No edema, No gallop, No irregular rhythm, No jugular venous distention (JVD), No murmurs/extra sounds, No rub, No S3, No S4, No other Gastrointestinal: soft, bowel sounds, distended, rebound or guarding; No nl liver, spleen, No non-tender, No ascites, No firm, No hepatomegaly, No mass, No splenomegaly, No surgical scars, No tender, No other Genitourinary - Male: nl penis, nl scrotum Musculoskeletal: joint tenderness, muscle tone, muscle weakness; No nl extremities to inspection, No nl gait and stance, No range of motion, No spine non-tender, No swelling, No other Extremities: normal pulses, pitting pedal edema; No calf tenderness, No cyanosis, No clubbing, No edema, No palpable cord, No tenderness, No other Neurological: KING MAKER II-XII intact; No nl mental status, No nl speech, No nl strength, No confused, No DTR's symmetric, No focal weakness, No lethargic, No numbness, No reflexes, No unresponsive, No other Skin: nl turgor, ecchymosis; No rash or lesions, No diaphoresis, No laceration, No puncture, No other Lymph: No nl lymph nodes, No enlarged, No nontender, No other ELBERT DIANA MD Apr 28, 2019 20:58
[2019-04-28] MEDS: INSULIN GLARGINE [LANTus] (100 UNITS/ML) SYG SC SCH (21:00)
[2019-04-28] MEDS: EZETIMIBE 10 MG TAB PO SCH (21:02)
[2019-04-28] MEDS: AMITRIPTYLINE 25 MG TAB PO SCH (21:02)
[2019-04-28] MEDS: ATORVASTATIN 80 MG TAB PO SCH (21:04)
[2019-04-29] VITALS (12 sets, daily range): BP systolic 117–163; BP diastolic 57–76; PULSE 71–103; RESP 12–18
[2019-04-29] MEDS: ACCUCHECK AT 2AM (Patients on SS coverage) XX SCH (01:02)
[2019-04-29] MEDS: PANTOPRAZOLE (EC) 40 MG TAB PO SCH (06:22)
[2019-04-29] MEDS: BUMETANIDE 1 MG TAB PO SCH ×2 (06:22→17:21)
[2019-04-29] MEDS: Insulin NOVOLOG SS MODERATE Algorithm (SS with meals and bedtime) SC SCH ×4 (07:50→20:55)
[2019-04-29] MEDS: INSULIN ASPART [NOVOLOG] 3 ML PEN SC SCH ×3 (07:53→17:27)
[2019-04-29] MEDS: CREON (24K-76K-120K) 1 CAP PO SCH ×3 (08:00→17:21)
[2019-04-29] MEDS: AMIODARONE 200 MG TAB PO SCH (08:29)
[2019-04-29] MEDS: DULOXETINE 30 MG CAP DR PO SCH (08:29)
[2019-04-29] MEDS: AMLODIPINE 2.5 MG TAB PO SCH (08:29)
[2019-04-29] MEDS: CILOSTAZOL 100 MG TAB PO SCH ×2 (08:29→20:58)
[2019-04-29] MEDS: GABAPENTIN 300 MG CAP PO SCH ×3 (08:29→20:55)
[2019-04-29] MEDS: ASPIRIN (EC) 81 MG TAB PO SCH (08:29)
[2019-04-29] MEDS: ISOSORBIDE DINITRATE 10 MG TAB PO SCH ×3 (08:35→21:01)
--- NOTE | 2019-04-29 08:57 | PN ---
Date/Time of Note Date/Time of Note DATE: 04/29/19 TIME: 08:52 Assessment/Plan VTE Prophylaxis Risk score (from Ns)>0 risk: 3 SCD applied (from [facility]): Yes SCD contraindicated: other (on) Pharmacological prophylaxis: other (bleeding.) Pharm contraindication: renal impairment Lines/Catheters IV C[facility]ter Type (from [facility]): Peripheral IV Central line still needed: No Urinary Cath still in place: No Reason Cath still needed: urinary retention Assessment/Plan Assessment/Plan 1. Pulmonary edema- IHD angina; s/p recurrent acute stemi and a Hx of V- fib cardiac arrest: s/p shock, amiodarone and epinephrine in the field before ROSC-PTCA with stenting of mid LCx; no new onset pulmonary edema with right hydrothorax 2. ZBIGNIEW -IV ( Hx of contrast use received for cardiac cath .Judicious fluid m anagement. Creatinine decreased from 2.6to 1.9 now again went up to 2.69; 3. Severe lactic acidosis with the hx of elevation and now the level is 7: Secondary to copd exacerbation, uti. 4. IHD angina; s/p acute stemi; V-fib cardiac arrest: 06/2018;s/p cardiogenic shock, amiodarone and epinephrine in the field before ROSC-PTCA with stenting of mid LCxS/p intubation for cardiac arrest and respiratory failure and successful extubation 5. Hypertension: nitro drip stopped, cont. BP meds. Adjust as needed 6. COPD- history of heavy smoking and current smoking a pack/day. nicotine addiction. 7. S/P recurrent episodes of pulmonary edema the first one 07/23/18 at about 4pm with resuscitative measures(iv lasix,02; BIPAP,solumedrol) improved. 2 more admissions for the same reason. History of smoking and using etoh more than usual in the past. 8.Dyslipidemia 9.Anoxic encephalopathy 10.Aspiration pneumonia? 11.BPH 12.Liver cirrhosis(alcoholic). 13.PAD with the hx of stenting of arteries of extremities 14.ED 15.ATN with creatinine level of more than 6; came down to 2.6; the last one as outpatient 1,9 in the office 3 sdays ago. decrease of creatinine 16.Constipation 17.Liver cirrhosis, probably alcoholic 18.Memory impairment 19.S/P icd implantation on left s/c area. 20.Right more than pleural effusion. Status post thoracentesis. 21. Incomplete data. Result Diagram: 04/29/19 0504/29/19 05 Results 24hrs Laboratory Tests Test 04/28/19 09:00 04/28/19 10:30 04/28/19 12:40 04/28/19 12:57 Pathologist YES Review (Hematology) Body Fluid Type PLEURAL Body Fluid Volume 1000.0 Body Fluid Color ILDA Body Fluid Appearance SLIGHTLY HAZY Body Fluid WBC 382 Body Fluid RBC (Auto) 2000 Body Fluid 8.6 Polynuclear WBCs (%) Body Fluid 91.4 Mononuclear Cells % Auto Urine Color STRAW Urine Clarity CLEAR Urine pH 5.0 Urine Specific 1.008 [place] Urine Ketones NEGATIVE Urine Nitrite NEGATIVE Urine Bilirubin NEGATIVE Urine Urobilinogen NEGATIVE Urine Leukocyte NEGATIVE Esterase Urine Microscopic RBC 2 Urine Microscopic WBC 8 H Urine Hemoglobin NEGATIVE Urine Random 48.05 Creatinine Urine Random Sodium 120 H Urine Glucose NEGATIVE Urine Total Protein 108.0 H Bedside Glucose 137 Creatine Kinase 156 Creatine Kinase Index 1.5 Creatinine Kinase MB 2.36 (Mass) Troponin I 0.068 Test 04/28/19 17:37 04/28/19 18:08 04/28/19 20:57 04/29/19 00:22 Bedside Glucose 234 H 101 Creatine Kinase 127 98 Creatine Kinase Index 1.5 1.6 Creatinine Kinase MB 1.95 1.54 (Mass) Troponin I 0.054 0.052 Test 04/29/19 05:19 04/29/19 07:50 White Blood Count 7.5 # Red Blood Count 2.94 L Hemoglobin 8.3 #L Hematocrit 26.4 #L Mean Corpuscular 89.8 Volume Mean Corpuscular 28.2 L Hemoglobin Mean Corpuscular 31.4 L Hemoglobin Concent Red Cell Distribution 15.6 H Width Platelet Count 236 # Mean Platelet Volume 9.9 Immature Granulocytes 0.400 % Neutrophils % 73.4 Lymphocytes % 15.4 Monocytes % 8.4 Eosinophils % 2.0 Basophils % 0.4 Nucleated Red Blood 0.0 Cells % Immature Granulocytes 0.030 # Neutrophils # 5.5 Lymphocytes # 1.2 Monocytes # 0.6 Eosinophils # 0.2 Basophils # 0.0 Nucleated Red Blood 0.0 Cells # Sodium Level 144 Potassium Level 4.0 Chloride Level 108 Carbon Dioxide Level 26 Anion Gap 10 # Blood Urea Nitrogen 34 H Creatinine 3.02 H Est Glomerular 21 L Filtrat Rate mL/min Glucose Level 130 # Calcium Level 9.0 Phosphorus Level 4.7 Magnesium Level 2.2 Bedside Glucose 126 Subjective 24 Hr Interval Summary Free Text/Dictation sob improved. Constitutional: improved, chills, disoriented, poor po, requiring O2; No no complaints, No diaphoresis, No febrile, No requiring IVF, No other Eyes: No no complaints, No pain, No discharge, No redness, No visual change, No other ENT: pain, congestion, discharge; No no complaints, No bleeding, No dysphagia, No sore throat, No other Respiratory: cough, pleuritic pain, shortness of breath; No no complaints, No pain, No sputum, No wheezing, No other Cardiovascular: chest pain, edema, lightheadedness, orthopenea, palpitations; No no complaints, No paroxysmal nocturnal dyspnea, No other Gastrointestinal: constipation, decreased appetite, passing stool; No no complaints, No pain, No blood, No diarrhea, No flatus, No nausea, No vomiting, No other Genitourinary: dysuria; No no complaints, No bleeding, No discharge, No flank pain, No hematuria, No other Musculoskeletal: No no complaints, No back pain, No bone/joint pain, No neck pain, No restricted range of motion, No swelling, No other Skin: bruising, erythema, laceration, pruritis; No no complaints, No rash, No skin lesions, No other Neurologic: confusion, dizziness; No no complaints, No focal-weakness, No headache, No syncope, No seizure, No other Endocrine: polyuria; No no complaints, No polydypsia, No dry skin, No temp intolerance, No other Lymphatic: No no complaints, No adenopathy, No tender nodes, No lymphadema, No other Psychological: anxiety, confusion; No no complaints, No nl mood/affect, No depression, No suicidal, No other Immunologic: No no complaints, No immunodeficiency, No pruritis, No rhinitis, No urticaria, No other Exam/Review of Systems Exam Vitals Vital Signs Date Temp Pulse Resp B/P (MAP) Pulse Ox O2 O2 Flow FiO2 Time Delivery Rate 04/29/19 102 08:05 04/29/19 98.3 18 147/73 97 Nasal 07:08 (97) Cannula 04/28/19 4.0 33 08:40 Intake and Output 04/28/19 04/28/19 04/29/19 1515:00 23:00 07:00 IntakeIntake Total 0 ml 200 ml 0 ml OutputOutput Total 1200 ml 800 ml 400 ml BalanceBalance -1200 ml -600 ml -400 ml Constitutional: alert, oriented, well developed, distress, frail; No non-verbal, No obese, No other Psych: anxiety; No no complaints, No nl mood/affect, No confusion, No depression, No suicidal , No other Eyes: EOMI, nl lids; No nl conjunctiva, No nl sclera, No PERRL, No icteric, No fundi, disc, No other ENMT: nl nasal mucosa & septum; No nl external ears & nose, No nl lips & teeth, No mucosa pink and moist, No intubated, No tympanic membranes, No other Neck: jvd, bruits, nuchal rigidity Respiratory: congested cough, crackles/rales, diminished breath sounds; No clear to auscultation, No normal air movement, No intercostal retraction, No labored breathing, No respirations, No tactile fremitus, No wheezing, No other Cardiovascular: regular rate and rhythm, edema, systolic murmur; No nl pulses, No bruits, No diastolic murmur, No gallop, No irregular rhythm, No jugular venous distention (JVD), No murmurs/extra sounds, No rub, No S3, No S4, No other Gastrointestinal: soft, ascites, bowel sounds Genitourinary - Male: nl penis, nl scrotum; No CVA tenderness, No discharge, No other Musculoskeletal: joint tenderness; No nl extremities to inspection, No nl gait and stance, No muscle tone, No muscle weakness, No range of motion, No spine non-tender, No swelling, No other Extremities: edema; No normal pulses, No calf tenderness, No cyanosis, No clubbing, No pitting pedal edema, No palpable cord, No tenderness, No other Neurological: BOARD TURNER II-XII intact, confused; No nl mental status, No nl speech, No nl strength, No DTR's symmetric, No focal weakness, No lethargic, No numbness, No reflexes, No unresponsive, No other Skin: nl turgor; No rash or lesions, No diaphoresis, No ecchymosis, No laceration, No puncture, No other Lymph: nl lymph nodes; No enlarged, No nontender, No other Results Results 24hrs Laboratory Tests Test 04/28/19 09:00 04/28/19 10:30 04/28/19 12:40 04/28/19 12:57 Pathologist YES Review (Hematology) Body Fluid Type PLEURAL Body Fluid Volume 1000.0 Body Fluid Color LIDA Body Fluid Appearance SLIGHTLY HAZY Body Fluid WBC 382 Body Fluid RBC (Auto) 2000 Body Fluid 8.6 Polynuclear WBCs (%) Body Fluid 91.4 Mononuclear Cells % Auto Urine Color STRAW Urine Clarity CLEAR Urine pH 5.0 Urine Specific 1.008 [place] Urine Ketones NEGATIVE Urine Nitrite NEGATIVE Urine Bilirubin NEGATIVE Urine Urobilinogen NEGATIVE Urine Leukocyte NEGATIVE Esterase Urine Microscopic RBC 2 Urine Microscopic WBC 8 H Urine Hemoglobin NEGATIVE Urine Random 48.05 Creatinine Urine Random Sodium 120 H Urine Glucose NEGATIVE Urine Total Protein 108.0 H Bedside Glucose 137 Creatine Kinase 156 Creatine Kinase Index 1.5 Creatinine Kinase MB 2.36 (Mass) Troponin I 0.068 Test 04/28/19 17:37 04/28/19 18:08 04/28/19 20:57 04/29/19 00:22 Bedside Glucose 234 H 101 Creatine Kinase 127 98 Creatine Kinase Index 1.5 1.6 Creatinine Kinase MB 1.95 1.54 (Mass) Troponin I 0.054 0.052 Test 04/29/19 05:19 04/29/19 07:50 White Blood Count 7.5 # Red Blood Count 2.94 L Hemoglobin 8.3 #L Hematocrit 26.4 #L Mean Corpuscular 89.8 Volume Mean Corpuscular 28.2 L Hemoglobin Mean Corpuscular 31.4 L Hemoglobin Concent Red Cell Distribution 15.6 H Width Platelet Count 236 # Mean Platelet Volume 9.9 Immature Granulocytes 0.400 % Neutrophils % 73.4 Lymphocytes % 15.4 Monocytes % 8.4 Eosinophils % 2.0 Basophils % 0.4 Nucleated Red Blood 0.0 Cells % Immature Granulocytes 0.030 # Neutrophils # 5.5 Lymphocytes # 1.2 Monocytes # 0.6 Eosinophils # 0.2 Basophils # 0.0 Nucleated Red Blood 0.0 Cells # Sodium Level 144 Potassium Level 4.0 Chloride Level 108 Carbon Dioxide Level 26 Anion Gap 10 # Blood Urea Nitrogen 34 H Creatinine 3.02 H Est Glomerular 21 L Filtrat Rate mL/min Glucose Level 130 # Calcium Level 9.0 Phosphorus Level 4.7 Magnesium Level 2.2 Bedside Glucose 126 Medications Medication Current Medications Amiodarone HCl (Cordarone) 200 mg DAILY PO Last administered on 04/29/19 08:29; Admin Dose 200 MG; Start 04/28/19 at 09:00 Amitriptyline HCl (Elavil) 25 mg QHS PO Last administered on 04/28/19 21:02; Admin Dose 25 MG; Start 04/28/19 at 21:00 Amlodipine Besylate (Norvasc) 2.5 mg DAILY PO Last administered on 04/29/19 08:29; Admin Dose 2.5 MG; Start 04/28/19 at 09:00 Aspirin (Halfprin) 81 mg DAILY PO Last administered on 04/29/19 08:29; Admin Dose 81 MG; Start 04/28/19 at 09:00 Atorvastatin Calcium (Lipitor) 80 mg QHS PO Last administered on 04/28/19 21:04; Admin Dose 80 MG; Start 04/28/19 at 21:00 Carvedilol (Coreg) 25 mg BID PO Last administered on 04/29/19 08:30; Admin Dose 25 MG; Start 04/28/19 at 09:00 Cilostazol (Pletal) 100 mg BID PO Last administered on 04/29/19 08:29; Admin Dose 100 MG; Start 04/28/19 at 09:00 Clopidogrel Bisulfate (plaVIX) 75 mg DAILY PO Last administered on 04/28/19 10:03; Admin Dose 75 MG; Start 04/28/19 at 09:00 Duloxetine HCl (Cymbalta) 60 mg DAILY PO Last administered on 04/29/19 08:29; Admin Dose 60 MG; Start 04/28/19 at 09:00 EZETIMIBE (Zetia) 10 mg HS PO Last administered on 04/28/19 21:02; Admin Dose 10 MG; Start 04/28/19 at 21:00 Gabapentin (Neurontin) 300 mg TID PO Last administered on 04/29/19 08:29; Admin Dose 300 MG; Start 04/28/19 at 09:00 Hydralazine HCl (Apresoline) 50 mg BID PO Last administered on 04/29/19 08:30; Admin Dose 50 MG; Start 04/28/19 at 09:00 Insulin Aspart (Novolog Insulin Pen) 6 unit WITH MEALS SC Last administered on 04/28/19at 17:51; Admin Dose 6 UNIT; Start 04/28/19 at 07:35 Isosorbide Dinitrate (Isordil) 10 mg TID PO Last administered on 04/29/19at 08:35; Admin Dose 10 MG; Start 04/28/19 at 09:00 Amylase/Lipase/ Protease (Creon ([id number])) 1 cap WITH MEALS PO Last administered on 04/28/19at 17:46; Admin Dose 1 CAP; Start 04/28/19 at 07:35 Pantoprazole (Protonix Tab) 40 mg AC BREAKFAST PO Last administered on 04/29/19 06:22; Admin Dose 40 MG; Start 04/28/19 at 07:00 Ondansetron HCl (Zofran Inj) 4 mg Q6H PRN IV nausea,vomiting.; Start 04/28/19 at 06:00 Morphine Sulfate (morphine) 2 mg Q3HWA PRN IV pain and severe sob.; Start 04/28/19 at 06:00 Miscellaneous Information 1 ea NOTE XX ; Start 04/28/19 at 07:00 Glucose (Glutose) 15 gm Q15M PRN PO DECREASED GLUCOSE; Start 04/28/19 at 07:00 Glucose (Glutose) 22.5 gm Q15M PRN PO DECREASED GLUCOSE; Start 04/28/19 at 07:00 Dextrose (D50w Syringe) 25 ml Q15M PRN IV DECREASED GLUCOSE; Start 04/28/19 at 07:00 Dextrose (D50w Syringe) 50 ml Q15M PRN IV DECREASED GLUCOSE; Start 04/28/19 at 07:00 Glucagon (Glucagen) 1 mg Q15M PRN IM DECREASED GLUCOSE; Start 04/28/19 at 07:00 Glucose (Glutose) 15 gm Q15M PRN BUCCAL DECREASED GLUCOSE; Start 04/28/19 at 07:00 Insulin Aspart (Novolog Insulin Pen) (Adult SC Insulin - Moder... WITH MEALS BEDTIME SC Last administered on 04/28/19at 17:51; Admin Dose 6 UNIT; Start 04/28/19 at 17:35 Diagnostic Test (Pha) (Accu-Chek) 1 ea 02 XX ; Start 04/29/19 at 02:00 Bumetanide (Bumex) 1 mg BID DIURETICS PO Last administered on 04/29/19at 06:22; Admin Dose 1 MG; Start 04/28/19 at 18:00 Insulin Glargine (Lantus) 12 units HS SC Last administered on 04/28/19at 21:00; Admin Dose 12 UNITS; Start 04/28/19 at 21:00 ELBERT DIANA MD Apr 29, 2019 08:57
--- NOTE | 2019-04-29 09:40 | PN ---
DATE: 04/29/2019 SUBJECTIVE: The patient was transferred from intensive care unit to telemetry. The patient is curre ntly stable. No hemoptysis, hematemesis or hematochezia. OBJECTIVE: VITAL SIGNS: Blood pressure is 147/73, respirations 18, pulse 79, temperature is 98.3. HEENT: Head is normocephalic. NECK: Supple. HEART: Regular rate. LUNGS: Show diminished breath sounds at the base. ABDOMEN: Soft, nontender to palpation without rebound or guarding. EXTREMITIES: Negative for clubbing, cyanosis, no edema. DERMATOLOGIC: No rashes. MUSCULOSKELETAL: No joint effusions. NEUROLOGIC: No change in exam. MEDICATIONS: The patient's medications have been reviewed. LABORATORY DATA: Has been reviewed. ASSESSMENT AND PLAN: 1. Nonoliguric acute kidney injury on top of chronic kidney disease stage IV with previous baseline creatinine around 2.5 to 3.0 mg per deciliter. The patient's renal function is fluctuating, but over all near baseline. Recommendation would be to continue current treatment plans, supportive care, kimber ally dose all meds. Monitor renal function closely on diuretic therapy. 2. Hypertensive urgency. Etiology is in part due to increased intravascular volume. The patient's blood pressures are improved. Continue current blood pressure regimen. Continue diuretic regimen. 3. Acute decompensated heart failure. The patient is clinically improving. Continue current diuret ic regimen. 4. Acute hypoxic respiratory failure secondary to pulmonary edema, pleural effusion. The patient is status post thoracentesis. Continue current diuretic regimen. 5. Anemia. Monitor hemoglobin and hematocrit levels. 6. Mineral bone disorder. Monitor calcium and phosphorus levels. 7. Coronary artery disease. Continue medical management. 8. Dyslipidemia. Continue statin therapy. 9. Diabetes. Continue current insulin management. 10. History of ETOH abuse and liver disease. Dictated By: LILY MONTIEL/GE Conf#: [id number] DID#: [id number]
--- NOTE | 2019-04-29 09:44 | CONS ---
Assessment/Plan Assessment/Plan Assessment/Plan (Daily) Assessment and recommendations; next 1. Patient admitted for shortness of breath due to CHF exacerbation with recurrent right pleural effusion, status post right thoracentesis with significant interval improvement. 2. Underlying cardiomyopathy. 3. Chronic renal insufficiency. 4. History of cirrhosis of liver. Pleural effusions are compounded by combination of CHF as well as cirrhosis. 5. History of diabetes, hypertension, anemia and neuropathy. Continue current supportive care. Consultation Date/Type/Reason Admit Date/Time Apr 28, 2019 at 02:38 Initial Consult Date Type of Consult Pulmonary Patient's condition is stable. Significant improvement in shortness of breath after undergoing thoracentesis yesterday. Denies any chest pain, coughing, wheezing. Reason for Consultation H EENT exam; supple neck, positive JVD. No lymphadenopathy. Midline trachea. No thyromegaly. Patient has good dentition. No neck masses. Patient has good dentition. Chest exam; diminished but clear breath sounds. S1-S2 audible, no murmurs. Regular rhythm. Pacemaker in left chest wall. Abdomen exam; soft, nontender. No organomegaly. Bowel sounds audible. Extremity exam; peripheral edema clubbing. DB2 DBA exam; focal deficit. Date/Time of Note DATE: 04/29/19 TIME: 09:43 Exam/Review of Systems Exam Vitals Vital Signs Date Temp Pulse Resp B/P (MAP) Pulse Ox O2 O2 Flow FiO2 Time Delivery Rate 04/29/19 102 08:05 04/29/19 98.3 18 147/73 97 Nasal 07:08 (97) Cannula 04/28/19 4.0 33 08:40 Intake and Output 04/28/19 04/28/19 04/29/19 1515:00 23:00 07:00 IntakeIntake Total 0 ml 200 ml 0 ml OutputOutput Total 1200 ml 800 ml 400 ml BalanceBalance -1200 ml -600 ml -400 ml Results Result Diagram: 04/29/1951804/29/19518 Results 24hrs Laboratory Tests Test 04/28/19 10:30 04/28/19 12:40 04/28/19 12:57 04/28/19 17:37 Urine Color STRAW Urine Clarity CLEAR Urine pH 5.0 Urine Specific [place] 1.008 Urine Ketones NEGATIVE Urine Nitrite NEGATIVE Urine Bilirubin NEGATIVE Urine Urobilinogen NEGATIVE Urine Leukocyte Esterase NEGATIVE Urine Microscopic RBC 2 Urine Microscopic WBC 8 H Urine Hemoglobin NEGATIVE Urine Random Creatinine 48.05 Urine Random Sodium 120 H Urine Glucose NEGATIVE Urine Total Protein 108.0 H Bedside Glucose 137 234 H Creatine Kinase 156 Creatine Kinase Index 1.5 Creatinine Kinase MB 2.36 (Mass) Troponin I 0.068 Test 04/28/19 18:08 04/28/19 20:57 04/29/19 00:22 04/29/19 05:19 Creatine Kinase 127 98 Creatine Kinase Index 1.5 1.6 Creatinine Kinase MB 1.95 1.54 (Mass) Troponin I 0.054 0.052 Bedside Glucose 101 White Blood Count 7.5 # Red Blood Count 2.94 L Hemoglobin 8.3 #L Hematocrit 26.4 #L Mean Corpuscular Volume 89.8 Mean Corpuscular 28.2 L Hemoglobin Mean Corpuscular 31.4 L Hemoglobin Concent Red Cell Distribution 15.6 H Width Platelet Count 236 # Mean Platelet Volume 9.9 Immature Granulocytes % 0.400 Neutrophils % 73.4 Lymphocytes % 15.4 Monocytes % 8.4 Eosinophils % 2.0 Basophils % 0.4 Nucleated Red Blood 0.0 Cells % Immature Granulocytes # 0.030 Neutrophils # 5.5 Lymphocytes # 1.2 Monocytes # 0.6 Eosinophils # 0.2 Basophils # 0.0 Nucleated Red Blood 0.0 Cells # Sodium Level 144 Potassium Level 4.0 Chloride Level 108 Carbon Dioxide Level 26 Anion Gap 10 # Blood Urea Nitrogen 34 H Creatinine 3.02 H Est Glomerular Filtrat 21 L Rate mL/min Glucose Level 130 # Calcium Level 9.0 Phosphorus Level 4.7 Magnesium Level 2.2 Test 04/29/19 07:50 Bedside Glucose 126 Medications Medication Current Medications Amiodarone HCl (Cordarone) 200 mg DAILY PO Last administered on 04/29/19at 08:29; Admin Dose 200 MG; Start 04/28/19 at 09:00 Amitriptyline HCl (Elavil) 25 mg QHS PO Last administered on 04/28/19at 21:02; Admin Dose 25 MG; Start 04/28/19 at 21:00 Amlodipine Besylate (Norvasc) 2.5 mg DAILY PO Last administered on 04/29/19at 08:29; Admin Dose 2.5 MG; Start 04/28/19 at 09:00 Aspirin (Halfprin) 81 mg DAILY PO Last administered on 04/29/19 08:29; Admin Dose 81 MG; Start 04/28/19 at 09:00 Atorvastatin Calcium (Lipitor) 80 mg QHS PO Last administered on 04/28/19 21:04; Admin Dose 80 MG; Start 04/28/19 at 21:00 Carvedilol (Coreg) 25 mg BID PO Last administered on 04/29/19 08:30; Admin Dose 25 MG; Start 04/28/19 at 09:00 Cilostazol (Pletal) 100 mg BID PO Last administered on 04/29/19 08:29; Admin Dose 100 MG; Start 04/28/19 at 09:00 Clopidogrel Bisulfate (plaVIX) 75 mg DAILY PO Last administered on 04/28/19 10:03; Admin Dose 75 MG; Start 04/28/19 at 09:00 Duloxetine HCl (Cymbalta) 60 mg DAILY PO Last administered on 04/29/19 08:29; Admin Dose 60 MG; Start 04/28/19 at 09:00 EZETIMIBE (Zetia) 10 mg HS PO Last administered on 04/28/19 21:02; Admin Dose 10 MG; Start 04/28/19 at 21:00 Gabapentin (Neurontin) 300 mg TID PO Last administered on 04/29/19 08:29; Admin Dose 300 MG; Start 04/28/19 at 09:00 Hydralazine HCl (Apresoline) 50 mg BID PO Last administered on 04/29/19 08:30; Admin Dose 50 MG; Start 04/28/19 at 09:00 Insulin Aspart (Novolog Insulin Pen) 6 unit WITH MEALS SC Last administered on 04/28/19 17:51; Admin Dose 6 UNIT; Start 04/28/19 at 07:35 Isosorbide Dinitrate (Isordil) 10 mg TID PO Last administered on 04/29/19 08:35; Admin Dose 10 MG; Start 04/28/19 at 09:00 Amylase/Lipase/ Protease (Creon ([id number])) 1 cap WITH MEALS PO Last administered on 04/28/19 17:46; Admin Dose 1 CAP; Start 04/28/19 at 07:35 Pantoprazole (Protonix Tab) 40 mg AC BREAKFAST PO Last administered on 6/8/19at 06:22; Admin Dose 40 MG; Start 04/28/19 at 07:00 Ondansetron HCl (Zofran Inj) 4 mg Q6H PRN IV nausea,vomiting.; Start 04/28/19 at 06:00 Morphine Sulfate (morphine) 2 mg Q3HWA PRN IV pain and severe sob.; Start 04/28/19 at 06:00 Miscellaneous Information 1 ea NOTE XX ; Start 04/28/19 at 07:00 Glucose (Glutose) 15 gm Q15M PRN PO DECREASED GLUCOSE; Start 04/28/19 at 07:00 Glucose (Glutose) 22.5 gm Q15M PRN PO DECREASED GLUCOSE; Start 04/28/19 at 07:00 Dextrose (D50w Syringe) 25 ml Q15M PRN IV DECREASED GLUCOSE; Start 04/28/19 at 07:00 Dextrose (D50w Syringe) 50 ml Q15M PRN IV DECREASED GLUCOSE; Start 04/28/19 at 07:00 Glucagon (Glucagen) 1 mg Q15M PRN IM DECREASED GLUCOSE; Start 04/28/19 at 07:00 Glucose (Glutose) 15 gm Q15M PRN BUCCAL DECREASED GLUCOSE; Start 04/28/19 at 07:00 Insulin Aspart (Novolog Insulin Pen) (Adult SC Insulin - Moder... WITH MEALS BE DTIME SC Last administered on 04/28/19at 17:51; Admin Dose 6 UNIT; Start 04/28/19 at 17:35 Diagnostic Test (Pha) (Accu-Chek) 1 ea 02 XX ; Start 04/29/19 at 02:00 Bumetanide (Bumex) 1 mg BID DIURETICS PO Last administered on 04/29/19 06:22; Admin Dose 1 MG; Start 04/28/19 at 18:00 Insulin Glargine (Lantus) 12 units HS SC Last administered on 04/28/19 21:00; Admin Dose 12 UNITS; Start 04/28/19 at 21:00 ABDI WRIGHT Apr 29, 2019 09:44
--- NOTE | 2019-04-29 14:04 | CONS ---
Assessment/Plan Assessment/Plan Hospital Course (Demo Recall) IMPRESSION: 1. Congestive heart failure, systolic, acute on chronic.-improving [id number] status 2. History of PTCA and stent placement to circumflex for ST elevation myocardial infarction in 12/2017.-neg trop x 3 3. Hypertension, reasonable control at this time. 4. Dyslipidemia. 5. History of ST-elevation myocardial infarction in 07/2018. 6. Anemia. 7. Leukocytosis. 8. Renal failure.--acute on chronic 9. PLeural effusion-s/p thracentesis 10. ? [facility] Rec: -Tele -serial ecg's -Continue BB/norvasc/hydralazine with well controlled BP -Contineu statin/zetia -Continue isordil -Continue asa/plavix/pletal and follow for any bleeding complications -Continue amiodarone and follow for any recurrent arrythmias -renal following Consultation Date/Type/Reason Admit Date/Time Apr 28, 2019 at 02:38 Initial Consult Date 04/29/19 Type of Consult Cardiology Reason for Consultation CHF Requesting Provider: ELBERT DIANA MD Date/Time of Note DATE: 04/29/19 TIME: 14:00 Exam/Review of Systems Vital Signs Vitals Vital Signs Date Temp Pulse Resp B/P (MAP) Pulse Ox O2 O2 Flow FiO2 Time Delivery Rate 04/29/19 82 12:02 04/29/19 98.0 18 123/57 96 Room Air 11:03 (79) 04/28/19 4.0 33 08:40 Intake and Output 04/28/19 04/28/19 04/29/19 1515:00 23:00 07:00 IntakeIntake Total 0 ml 200 ml 0 ml OutputOutput Total 1200 ml 800 ml 400 ml BalanceBalance -1200 ml -600 ml -400 ml Exam Exam Review of Systems: CONSTITUTIONAL: No fevers, chills. PULMONARY: No sob CARDIOVASCULAR: No chest pain/palpitations GASTROINTESTINAL: No nausea/vomiting. GENITOURINARY: No hematuria/dysuria. MUSCULOSKELETAL: No myagias/arthalgias. PSYCHIATRIC: The patient denies depression. NEUROLOGIC: No weakness Constitutional: alert Psych: no complaints Head: normocephalic ENMT: mucosa pink and moist Neck: supple, jvd (9 cm water) Respiratory: diminished breath sounds (at bases/B) Cardiovascular: regular rate and rhythm Gastrointestinal: soft, non-tender Musculoskeletal: muscle tone (normal) Extremities: edema (none) Labs Result Diagram: 04/29/1951804/29/19518 Results 24hrs Laboratory Tests Test 04/28/19 17:37 04/28/19 18:08 04/28/19 20:57 04/29/19 00:22 Bedside Glucose 234 H 101 Creatine Kinase 127 98 Creatine Kinase Index 1.5 1.6 Creatinine Kinase MB 1.95 1.54 (Mass) Troponin I 0.054 0.052 Test 04/29/19 05:19 04/29/19 07:50 04/29/19 11:31 White Blood Count 7.5 # Red Blood Count 2.94 L Hemoglobin 8.3 #L Hematocrit 26.4 #L Mean Corpuscular Volume 89.8 Mean Corpuscular 28.2 L Hemoglobin Mean Corpuscular 31.4 L Hemoglobin Concent Red Cell Distribution 15.6 H Width Platelet Count 236 # Mean Platelet Volume 9.9 Immature Granulocytes % 0.400 Neutrophils % 73.4 Lymphocytes % 15.4 Monocytes % 8.4 Eosinophils % 2.0 Basophils % 0.4 Nucleated Red Blood 0.0 Cells % Immature Granulocytes # 0.030 Neutrophils # 5.5 Lymphocytes # 1.2 Monocytes # 0.6 Eosinophils # 0.2 Basophils # 0.0 Nucleated Red Blood 0.0 Cells # Sodium Level 144 Potassium Level 4.0 Chloride Level 108 Carbon Dioxide Level 26 Anion Gap 10 # Blood Urea Nitrogen 34 H Creatinine 3.02 H Est Glomerular Filtrat 21 L Rate mL/min Glucose Level 130 # Calcium Level 9.0 Phosphorus Level 4.7 Magnesium Level 2.2 Bedside Glucose 126 144 Medications Medications Current Medications Amiodarone HCl (Cordarone) 200 mg DAILY PO Last administered on 04/29/19at 08:29; Admin Dose 200 MG; Start 04/28/19 at 09:00 Amitriptyline HCl (Elavil) 25 mg QHS PO Last administered on 04/28/19at 21:02; Admin Dose 25 MG; Start 04/28/19 at 21:00 Amlodipine Besylate (Norvasc) 2.5 mg DAILY PO Last administered on 04/29/19at 0 8:29; Admin Dose 2.5 MG; Start 04/28/19 at 09:00 Aspirin (Halfprin) 81 mg DAILY PO Last administered on 04/29/19 08:29; Admin Dose 81 MG; Start 04/28/19 at 09:00 Atorvastatin Calcium (Lipitor) 80 mg QHS PO Last administered on 04/28/19 21:04; Admin Dose 80 MG; Start 04/28/19 at 21:00 Carvedilol (Coreg) 25 mg BID PO Last administered on 04/29/19 08:30; Admin Dose 25 MG; Start 04/28/19 at 09:00 Cilostazol (Pletal) 100 mg BID PO Last administered on 04/29/19 08:29; Admin Dose 100 MG; Start 04/28/19 at 09:00 Clopidogrel Bisulfate (plaVIX) 75 mg DAILY PO Last administered on 04/28/19 10:03; Admin Dose 75 MG; Start 04/28/19 at 09:00 Duloxetine HCl (Cymbalta) 60 mg DAILY PO Last administered on 04/29/19 08:29; Admin Dose 60 MG; Start 04/28/19 at 09:00 EZETIMIBE (Zetia) 10 mg HS PO Last administered on 04/28/19 21:02; Admin Dose 10 MG; Start 04/28/19 at 21:00 Gabapentin (Neurontin) 300 mg TID PO Last administered on 04/29/19 12:34; Admin Dose 300 MG; Start 04/28/19 at 09:00 Hydralazine HCl (Apresoline) 50 mg BID PO Last administered on 04/29/19 08:30; Admin Dose 50 MG; Start 04/28/19 at 09:00 Insulin Aspart (Novolog Insulin Pen) 6 unit WITH MEALS SC Last administered on 04/28/19 17:51; Admin Dose 6 UNIT; Start 04/28/19 at 07:35 Isosorbide Dinitrate (Isordil) 10 mg TID PO Last administered on 04/29/19 12:35; Admin Dose 10 MG; Start 04/28/19 at 09:00 Amylase/Lipase/ Protease (Creon ([id number])) 1 cap WITH MEALS PO Last administered on 04/28/19 17:46; Admin Dose 1 CAP; Start 04/28/19 at 07:35 Pantoprazole (Protonix Tab) 40 mg AC BREAKFAST PO Last administered on 04/29/19at 06:22; Admin Dose 40 MG; Start 04/28/19 at 07:00 Ondansetron HCl (Zofran Inj) 4 mg Q6H PRN IV nausea,vomiting.; Start 04/28/19 at 06:00 Morphine Sulfate (morphine) 2 mg Q3HWA PRN IV pain and severe sob.; Start 04/28/19 at 06:00 Miscellaneous Information 1 ea NOTE XX ; Start 04/28/19 at 07:00 Glucose (Glutose) 15 gm Q15M PRN PO DECREASED GLUCOSE; Start 04/28/19 at 07:00 Glucose (Glutose) 22.5 gm Q15M PRN PO DECREASED GLUCOSE; Start 04/28/19 at 07:00 Dextrose (D50w Syringe) 25 ml Q15M PRN IV DECREASED GLUCOSE; Start 04/28/19 at 07:00 Dextrose (D50w Syringe) 50 ml Q15M PRN IV DECREASED GLUCOSE; Start 04/28/19 at 07:00 Glucagon (Glucagen) 1 mg Q15M PRN IM DECREASED GLUCOSE; Start 04/28/19 at 07:00 Glucose (Glutose) 15 gm Q15M PRN BUCCAL DECREASED GLUCOSE; Start 04/28/19 at 07:00 Insulin Aspart (Novolog Insulin Pen) (Adult SC Insulin - Moder... WITH MEALS BEDTIME SC Last administered on 04/28/19at 17:51; Admin Dose 6 UNIT; Start 04/28/19 at 17:35 Diagnostic Test (Pha) (Accu-Chek) 1 ea 02 XX ; Start 04/29/19 at 02:00 Bumetanide (Bumex) 1 mg BID DIURETICS PO Last administered on 04/29/19at 06:22; Admin Dose 1 MG; Start 04/28/19 at 18:00 Insulin Glargine (Lantus) 12 units HS SC Last administered on 04/28/19at 21:00; Admin Dose 12 UNITS; Start 04/28/19 at 21:00 SRINIVAS SAWYER Apr 29, 2019 14:04
--- NOTE | 2019-04-29 15:54 | RADRPT ---
Echocardiogram Report Patient Name: Izabel VEGA ID: [id number] : 1955 (63y 6m)Study Date: 04/29/2019 9:17:12 AM Gender: Jennifercession #: [id number] Tech: JENNIFER Location: [facility] Ref.Physician: SRINIVAS MELÉNDEZ Height(Cm): 173 BSA: 1.96Weight(Kg): 79.8 Quality: AdequateOrder Physician: SRINIVAS MELÉNDEZ Account #: Procedures: Echocardiographic Report: Transthoracic echocardiogram with complete 2D, M-Mode, and doppler examination. Indications: Congestive Heart Failure. Measurements: 2D/M Mode Doppler Measurement Value Normal Range Measurement Value Normal Range LVIDd 2D 6.0 [ 4.2 - 5.8 ] cm AV Peak Landon 1.6 [ 100.0 - 170.0 ] cm/se c LVIDs 2D 4.7 [ 2.5 - 4.0 ] cm AV Peak PG 11.0 [ 2.0 - 9.0 ] mmHg LVPWd 2D 1.1 [ 0.6 - 1.0 ] cm LVOT Peak Landon 0.9 [ 70.0 - 110.0 ] cm/sec IVSd 2D 1.3 [ 0.6 - 1.0 ] cm LVOT Peak PG 3.0 [ 2.0 - 6.0 ] mmHg AoR Diam 2D 3.6 [ 2.6 - 3.4 ] cm MV E Peak Landon 1.0 [ 60.0 - 130.0 ] cm/sec EF 2D 43.7 [ 52.0 - 72.0 ] percent MV A Peak Landon 0.7 [ 100.0 - 120.0 ] cm/se c LA Dimen 2D 4.9 [ 3.0 - 4.0 ] cm MV E/A 1.4 [ 0.8 - 1.5 ] ratio MV PHT 53.0 [ 20.0 - 100.0 ] msec MV Decel Time 182 [ 104 - 258 ] msec MV Decel Caroline 6 Lat E` Landon 0.1 [ 10.0 - 15.0 ] cm/sec Lateral E/E` 15.0 [ 1.0 - 2.0 ] ratio Med E` Landon 0.1 cm/sec MV E/A 1.4 [ 0.8 - 1.5 ] ratio MVA PHT 4.2 [ 2.0 - 4.0 ] cm2 TR Peak Landon 2.2 [ 100.0 - 280.0 ] cm/se c TR Peak PG 19.0 mmHg PV Peak Landon 1.4 [ 40.0 - 80.0 ] cm/sec PV Peak PG 8.0 mmHg RVSP 22.0 [ 10.0 - 36.0 ] mmHg RA Pressure 3.0 mmHg Findings: Left Ventricle: Mild hypertrophy of the basal septum. Mild enlargement of left ventricle cavity. Mild global left ventricular systolic dysfunction. Ejection fraction is visually estimated at 40 %. Abnormal Diastolic Function. E/E'= 15. Right Ventricle: Normal right ventricular size. Normal right ventricular systolic function. Left Atrium: There is moderate enlargement of left atrium. Right Atrium: The right atrium is normal in size. Linear artifact in right atrium suggestive of catheter, pacer lead, or ICD lead. Atrial Septum: Normal atrial septum. Mitral Valve: Normal appearance of the mitral valve. Mild to moderate mitral valve regurgitation. The regurgitation jet is eccentrically directed which may underestimate the severity of mitral regurgitation. Aortic Valve: No significant aortic stenosis or insufficiency. Normal trileaflet aortic valve structure. Tricuspid Valve: Normal appearance and function of the tricuspid valve with trace physiologic regurgitation. The estimated Peak RVSP is 22 mmHg. Pulmonic Valve: Normal pulmonic valve appearance. There is trace pulmonic regurgitation. Pericardium: Normal pericardium with no significant pericardial effusion. Aorta: Normal aortic root. IVC: Normal size and normal respiratory collapse consistent with normal right atrial pressure. Pulmonary Artery: Normal pulmonary artery size. Conclusions: Mild hypertrophy of the basal septum. Mild enlargement of left ventricle cavity. Mild global left ventricular systolic dysfunction. Ejection fraction is visually estimated at 40 %. Abnormal Diastolic Function. E/E'= 15. There is moderate enlargement of left atrium. The right atrium is normal in size. Linear artifact in right atrium suggestive of catheter, pacer lead, or ICD lead. Normal appearance of the mitral valve. Mild to moderate mitral valve regurgitation. The regurgitation jet is eccentrically directed which may underestimate the severity of mitral regurgitation. Normal appearance and function of the tricuspid valve with trace physiologic regurgitation. The estimated Peak RVSP is 22 mmHg. Normal pulmonic valve appearance. There is trace pulmonic regurgitation. n. Electronically Signed By: Srinivas Meléndez 2019-04-29 15:53:30 PDT
--- NOTE | 2019-04-29 15:55 | RADRPT ---
Vent Rate: 73 bpm RR Interval: 816 msec DC Interval: 189 msec QRS Duration: 117 msec QT Interval: 432 msec QTC Interval: 478 msec P-R-T Wister: 56 - -16 - 262 degrees Atrial-sensed ventricular-paced rhythm...ventricular pacing tracks p-waves Electronically Signed By: New Meléndez
[2019-04-29] MEDS: EZETIMIBE 10 MG TAB PO SCH (20:55)
[2019-04-29] MEDS: AMITRIPTYLINE 25 MG TAB PO SCH (20:58)
[2019-04-29] MEDS: ATORVASTATIN 80 MG TAB PO SCH (20:58)
[2019-04-29] MEDS: INSULIN GLARGINE [LANTus] (100 UNITS/ML) SYG SC SCH (21:15)
[2019-04-30] VITALS (9 sets, daily range): BP systolic 126–153; BP diastolic 62–74; PULSE 70–93; RESP 17–19
[2019-04-30] MEDS: ACCUCHECK AT 2AM (Patients on SS coverage) XX SCH (02:00)
[2019-04-30] MEDS: BUMETANIDE 1 MG TAB PO SCH ×2 (06:31→17:07)
[2019-04-30] MEDS: PANTOPRAZOLE (EC) 40 MG TAB PO SCH (06:31)
[2019-04-30] MEDS: Insulin NOVOLOG SS MODERATE Algorithm (SS with meals and bedtime) SC SCH ×4 (07:51→21:35)
[2019-04-30] MEDS: INSULIN ASPART [NOVOLOG] 3 ML PEN SC SCH ×3 (07:51→17:12)
[2019-04-30] MEDS: ASPIRIN (EC) 81 MG TAB PO SCH (08:23)
[2019-04-30] MEDS: CLOPIDOGREL 75 MG TAB PO SCH (08:24)
[2019-04-30] MEDS: AMLODIPINE 2.5 MG TAB PO SCH (08:24)
[2019-04-30] MEDS: ISOSORBIDE DINITRATE 10 MG TAB PO SCH ×3 (08:24→21:05)
[2019-04-30] MEDS: GABAPENTIN 300 MG CAP PO SCH ×3 (08:24→21:02)
[2019-04-30] MEDS: CILOSTAZOL 100 MG TAB PO SCH ×2 (08:24→21:06)
[2019-04-30] MEDS: AMIODARONE 200 MG TAB PO SCH (08:24)
[2019-04-30] MEDS: DULOXETINE 30 MG CAP DR PO SCH (08:25)
--- NOTE | 2019-04-30 09:35 | PN ---
DATE: 04/30/2019 SUBJECTIVE: The patient is stable. The patient's shortness of breath is resolved. No other events noted. OBJECTIVE: VITAL SIGNS: Blood pressure is 131/62, pulse 74, respiration 18, temperature 98.2. HEENT: Head is normocephalic. NECK: Supple. HEART: Regular rate. LUNGS: Show diminished breath sounds at the base. ABDOMEN: Soft, nontender to palpation without rebound or guarding. EXTREMITIES: Negative for clubbing, cyanosis, no edema. DERMATOLOGIC: No rashes. MUSCULOSKELETAL: No joint effusion. NEUROLOGIC: No change in exam. MEDICATIONS: The patient's medications have been reviewed. LABORATORY DATA: Has been reviewed. IMAGING STUDIES: Have been reviewed. ASSESSMENT AND PLAN: 1. Nonoliguric acute kidney injury on top of chronic kidney disease stage 4 with previous baseline c reatinine around 2.5 to 3.0 mg/dL. The patient's renal function has been fluctuating but near baseli ne. We will continue current treatment plans, supportive care, renally dose all meds. Continue to mo nitor renal function closely on diuretic therapy. 2. Hypertension. Blood pressure is improved. Continue current blood pressure regimen. 3. Acute decompensated heart failure. The patient is clinically improving. Continue current diuret ic regimen. Continue to monitor renal function, electrolytes closely. 4. Acute hypoxemic respiratory failure secondary to pulmonary edema, pleural effusions, improved. C ontinue to monitor. 5. Anemia. Monitor hemoglobin and hematocrit levels. 6. Mineral bone disorder. Monitor calcium and phosphorus levels. 7. Coronary artery disease. Continue medical management. 8. Dyslipidemia. Continue statin therapy. 9. Diabetes. Continue current insulin regimen. 10. History of ETOH abuse, liver disease. Continue medical management. Dictated By: LILY VASQUEZ DO NR/NTS Conf#: [id number] DID#: [id number] CC: RONA TOUSSAINT MD; ELBERT DIANA MD;*EndCC*
[2019-04-30] MEDS: CREON (24K-76K-120K) 1 CAP PO SCH ×3 (10:06→17:07)
--- NOTE | 2019-04-30 10:46 | CONS ---
Assessment/Plan Assessment/Plan Assessment/Plan (Daily) Assessment and recommendations; 1. Patient with history of CHF and liver cirrhosis admitted for recurrent right pleural effusion status post thoracentesis with marked radiological and clinical improvement. 2. History of cardiac arrhythmia. 3. Chronic anemia. 4. Chronic renal insufficiency. Continue current supportive care. Obtain follow-up chest x-ray in 24 hours. The patient possibly could be a candidate for chemical pleurodesis involving right pleural space. Consultation Date/Type/Reason Admit Date/Time Apr 28, 2019 at 02:38 Initial Consult Date Type of Consult Pulmonary Patient's condition is stable. Significant improvement in shortness of breath after undergoing thoracentesis yesterday. Denies any chest pain, coughing, wheezing. Requesting Provider: ELBERT DIANA MD Date/Time of Note DATE: 04/30/19 TIME: 10:44 24 HR Interval Summary Free Text/Dictation Patient's condition is stable. Denies any shortness of breath, chest pain. General exam; elderly male, awake alert, currently no distress. Exam/Review of Systems Exam Vitals Vital Signs Date Temp Pulse Resp B/P (MAP) Pulse Ox O2 O2 Flow FiO2 Time Delivery Rate 04/30/19 76 08:00 04/30/19 98.2 18 131/62 91 07:16 (85) 04/29/19 21 20:00 04/29/19 Room Air 15:03 04/28/19 4.0 08:40 Intake and Output 04/29/19 04/29/19 04/30/19 1515:00 23:00 07:00 IntakeIntake Total 680 ml 300 ml OutputOutput Total 0 ml 2 ml BalanceBalance 680 ml 298 ml Exam H EENT exam; supple neck, positive JVD. No lymphadenopathy. Midline trachea. No thyromegaly. Patient has fair dentition. No neck masses. Chest exam; clear to auscultation. S1-S2 audible, no murmurs. Regular rhythm. Abdomen exam; soft, nontender. No organomegaly. Bowel sounds audible. Extremity exam; no peripheral edema clubbing. [employer] exam; no focal deficit. Results Result Diagram: 04/30/19 0443 04/30/19 0443 Results 24hrs Laboratory Tests Test 04/29/19 11:31 04/29/19 17:17 04/29/19 20:54 04/30/19 04:35 Bedside Glucose 144 216 136 Phosphorus Level 4.6 Magnesium Level 2.2 Test 04/30/19 04:43 04/30/19 07:50 White Blood Count 7.4 Red Blood Count 2.86 L Hemoglobin 8.0 L Hematocrit 25.9 L Mean Corpuscular Volume 90.6 Mean Corpuscular 28.0 L Hemoglobin Mean Corpuscular 30.9 L Hemoglobin Concent Red Cell Distribution 15.4 H Width Platelet Count 248 Mean Platelet Volume 9.7 Immature Granulocytes % 0.300 Neutrophils % 67.7 Lymphocytes % 17.3 Monocytes % 11.6 H Eosinophils % 2.7 Basophils % 0.4 Nucleated Red Blood 0.0 Cells % Immature Granulocytes # 0.020 Neutrophils # 5.0 Lymphocytes # 1.3 Monocytes # 0.9 Eosinophils # 0.2 Basophils # 0.0 Nucleated Red Blood 0.0 Cells # Sodium Level 142 Potassium Level 3.8 Chloride Level 106 Carbon Dioxide Level 26 Anion Gap 10 Blood Urea Nitrogen 32 H Creatinine 3.16 H Est Glomerular Filtrat 20 L Rate mL/min Glucose Level 145 Calcium Level 9.3 Total Bilirubin 0.5 Direct Bilirubin 0.00 Indirect Bilirubin 0.5 Aspartate Amino 27 Transf (AST/SGOT) Alanine 40 Aminotransferase (ALT/SG PT) Alkaline Phosphatase 70 Total Protein 6.5 Albumin 3.8 Globulin 2.70 Albumin/Globulin Ratio 1.40 Bedside Glucose 138 Medications Medication Current Medications Amiodarone HCl (Cordarone) 200 mg DAILY PO Last administered on 04/30/19 08:24; Admin Dose 200 MG; Start 04/28/19 at 09:00 Amitriptyline HCl (Elavil) 25 mg QHS PO Last administered on 04/29/19 20:58; Admin Dose 25 MG; Start 04/28/19 at 21:00 Amlodipine Besylate (Norvasc) 2.5 mg DAILY PO Last administered on 04/30/19 08:24; Admin Dose 2.5 MG; Start 04/28/19 at 09:00 Aspirin (Halfprin) 81 mg DAILY PO Last administered on 04/30/19 08:23; Admin Dose 81 MG; Start 04/28/19 at 09:00 Atorvastatin Calcium (Lipitor) 80 mg QHS PO Last administered on 04/29/19 20:58; Admin Dose 80 MG; Start 04/28/19 at 21:00 Carvedilol (Coreg) 25 mg BID PO Last administered on 04/30/19 08:23; Admin Dose 25 MG; Start 04/28/19 at 09:00 Cilostazol (Pletal) 100 mg BID PO Last administered on 04/30/19 08:24; Admin Dose 100 MG; Start 04/28/19 at 09:00 Clopidogrel Bisulfate (plaVIX) 75 mg DAILY PO Last administered on 04/30/19 08:24; Admin Dose 75 MG; Start 04/28/19 at 09:00 Duloxetine HCl (Cymbalta) 60 mg DAILY PO Last administered on 04/30/19 08:25; Admin Dose 60 MG; Start 04/28/19 at 09:00 EZETIMIBE (Zetia) 10 mg HS PO Last administered on 04/29/19 20:55; Admin Dose 10 MG; Start 04/28/19 at 21:00 Gabapentin (Neurontin) 300 mg TID PO Last administered on 04/30/19 08:24; Admin Dose 300 MG; Start 04/28/19 at 09:00 Hydralazine HCl (Apresoline) 50 mg BID PO Last administered on 04/30/19 09:18; Admin Dose 50 MG; Start 04/28/19 at 09:00 Insulin Aspart (Novolog Insulin Pen) 6 unit WITH MEALS SC Last administered on 04/29/19 17:27; Admin Dose 6 UNIT; Start 04/28/19 at 07:35 Isosorbide Dinitrate (Isordil) 10 mg TID PO Last administered on 04/30/19 08:24; Admin Dose 10 MG; Start 04/28/19 at 09:00 Amylase/Lipase/ Protease (Creon ([id number])) 1 cap WITH MEALS PO Last administered on 04/30/19 10:06; Admin Dose 1 CAP; Start 04/28/19 at 07:35 Pantoprazole (Protonix Tab) 40 mg AC BREAKFAST PO Last administered on 04/30/19 06:31; Admin Dose 40 MG; Start 04/28/19 at 07:00 Ondansetron HCl (Zofran Inj) 4 mg Q6H PRN IV nausea,vomiting.; Start 04/28/19 at 06:00 Morphine Sulfate (morphine) 2 mg Q3HWA PRN IV pain and severe sob.; Start 04/28/19 at 06:00 Miscellaneous Information 1 ea NOTE XX ; Start 04/28/19 at 07:00 Glucose (Glutose) 15 gm Q15M PRN PO DECREASED GLUCOSE; Start 04/28/19 at 07:00 Glucose (Glutose) 22.5 gm Q15M PRN PO DECREASED GLUCOSE; Start 04/28/19 at 07:00 Dextrose (D50w Syringe) 25 ml Q15M PRN IV DECREASED GLUCOSE; Start 04/28/19 at 07:00 Dextrose (D50w Syringe) 50 ml Q15M PRN IV DECREASED GLUCOSE; Start 04/28/19 at 07:00 Glucagon (Glucagen) 1 mg Q15M PRN IM DECREASED GLUCOSE; Start 04/28/19 at 07:00 Glucose (Glutose) 15 gm Q15M PRN BUCCAL DECREASED GLUCOSE; Start 04/28/19 at 07:00 Insulin Aspart (Novolog Insulin Pen) (Adult SC Insulin - Moder... WITH MEALS BEDTIME SC Last administered on 04/29/19at 17:27; Admin Dose 4 UNIT; Start 04/28/19 at 17:35 Diagnostic Test (Pha) (Accu-Chek) 1 ea 02 XX ; Start 04/29/19 at 02:00 Bumetanide (Bumex) 1 mg BID DIURETICS PO Last administered on 04/30/19at 06:31; Admin Dose 1 MG; Start 04/28/19 at 18:00 Insulin Glargine (Lantus) 12 units HS SC Last administered on 04/29/19at 21:15; Admin Dose 12 UNITS; Start 04/28/19 at 21:00 ABDI WRIGHT Apr 30, 2019 10:46
--- NOTE | 2019-04-30 10:53 | PN ---
Date/Time of Note Date/Time of Note DATE: 04/30/19 TIME: 10:47 Assessment/Plan VTE Prophylaxis Risk score (from Ns)>0 risk: 4 SCD applied (from Ns): No SCD contraindicated: other (on) Pharmacological prophylaxis: LMWH Lines/Catheters IV Catheter Type (from [facility]): Peripheral IV Central line still needed: No Urinary Cath still in place: No Reason Cath still needed: urinary retention Assessment/Plan Assessment/Plan 1. Pulmonary edema- IHD angina; s/p recurrent acute stemi and a Hx of V- fib cardiac arrest: s/p shock, amiodarone and epinephrine in the field before ROSC-PTCA with stenting of mid LCx; no new onset pulmonary edema with right hydrothorax 2. ZBIGNIEW -IV ( Hx of contrast use received for cardiac cath .Judicious fluid management. Creatinine decreased from 2.6to 1.9 now again went up to 2.69; 3. Severe lactic acidosis with the hx of elevation and now the level is 7: Secondary to copd exacerbation, uti. 4. IHD angina; s/p acute stemi; V-fib cardiac arrest: 06/2018;s/p cardiogenic shock, amiodarone and epinephrine in the field before ROSC-PTCA with stenting of mid LCxS/p intubation for cardiac arrest and respiratory failure and successful extubation 5. Hypertension: nitro drip stopped, cont. BP meds. Adjust as needed 6. COPD- history of heavy smoking and current smoking a pack/day. nicotine addiction. 7. S/P recurrent episodes of pulmonary edema the first one 07/23/18 at about 4pm with resuscitative measures(iv lasix,02; BIPAP,solumedrol) improved. 2 more admissions for the same reason. History of smoking and using etoh more than usual in the past. 8.Dyslipidemia 9.Anoxic encephalopathy 10.Aspiration pneumonia? 11.BPH 12.Liver cirrhosis(alcoholic). 13.PAD with the hx of stenting of arteries of extremities 14.ED 15.ATN with creatinine level of more than 6; came down to 2.6; the last one as outpatient 1,9 in the office 3 sdays ago. decrease of creatinine 16.Constipation 17.Liver cirrhosis, probably alcoholic 18.Memory impairment 19.S/P icd implantation on left s/c area. 20.Right more than pleural effusion. Status post thoracentesis. 21. Incomplete data. Result Diagram: 04/30/19 0443 04/30/19 0443 Results 24hrs Laboratory Tests Test 04/29/19 11:31 04/29/19 17:17 04/29/19 20:54 04/30/19 04:35 Bedside Glucose 144 216 136 Phosphorus Level 4.6 Magnesium Level 2.2 Test 04/30/19 04:43 04/30/19 07:50 White Blood Count 7.4 Red Blood Count 2.86 L Hemoglobin 8.0 L Hematocrit 25.9 L Mean Corpuscular Volume 90.6 Mean Corpuscular 28.0 L Hemoglobin Mean Corpuscular 30.9 L Hemoglobin Concent Red Cell Distribution 15.4 H Width Platelet Count 248 Mean Platelet Volume 9.7 Immature Granulocytes % 0.300 Neutrophils % 67.7 Lymphocytes % 17.3 Monocytes % 11.6 H Eosinophils % 2.7 Basophils % 0.4 Nucleated Red Blood 0.0 Cells % Immature Granulocytes # 0.020 Neutrophils # 5.0 Lymphocytes # 1.3 Monocytes # 0.9 Eosinophils # 0.2 Basophils # 0.0 Nucleated Red Blood 0.0 Cells # Sodium Level 142 Potassium Level 3.8 Chloride Level 106 Carbon Dioxide Level 26 Anion Gap 10 Blood Urea Nitrogen 32 H Creatinine 3.16 H Est Glomerular Filtrat 20 L Rate mL/min Glucose Level 145 Calcium Level 9.3 Total Bilirubin 0.5 Direct Bilirubin 0.00 Indirect Bilirubin 0.5 Aspartate Amino 27 Transf (AST/SGOT) Alanine 40 Aminotransferase (ALT/SG PT) Alkaline Phosphatase 70 Total Protein 6.5 Albumin 3.8 Globulin 2.70 Albumin/Globulin Ratio 1.40 Bedside Glucose 138 Subjective 24 Hr Interval Summary Free Text/Dictation I feel much better. Shortness of breath significantly improved. Pain in the side of her thoracentesis. No fever and chills no nausea vomiting. The patient admits of being non-totally compliant on medications particularly lipid- lowering. I explained the patient the necessity of doing that otherwise the risk of heart attack and other complications of atherosclerosis will not decrease Constitutional: improved, poor po, requiring O2; No no complaints, No chills, No diaphoresis, No disoriented, No febrile, No requiring IVF, No other Eyes: discharge; No no complaints, No pain, No redness, No visual change, No other ENT: pain, congestion, dysphagia, sore throat; No no complaints, No bleeding, No discharge, No other Respiratory: cough, pleuritic pain, shortness of breath; No no complaints, No pain, No sputum, No wheezing, No other Cardiovascular: chest pain, edema, lightheadedness, orthopenea, palpitations, paroxysmal nocturnal dyspnea; No no complaints, No other Gastrointestinal: constipation, decreased appetite, flatus, nausea, passing stool; No no complaints, No pain, No blood, No diarrhea, No vomiting, No other Genitourinary: dysuria, flank pain; No no complaints, No bleeding, No discharge, No hematuria, No other Musculoskeletal: back pain, bone/joint pain Skin: skin lesions; No no complaints, No bruising, No erythema, No laceration, No pruritis, No rash, No other Neurologic: dizziness, headache, syncope, other (More forgetful. Has difficulty to distinguish the difference between his own behavior and the requirements of a treatment makes jokes tries to avoid discussion of the problem. I stressed to him that he quit smoking but he admits that he is a secondhand smoker because his friends are coming home on all of them smoke although he is not smoking but to my question to you feel the smell of cigarette smoke when they smoke he is responsible is positive. Ask explained to him the dangers of secondhand smoke.); No no complaints, No confusion, No focal-weakness, No seizure Endocrine: polyuria; No no complaints, No polydypsia, No dry skin, No temp intolerance, No other Lymphatic: No no complaints, No adenopathy, No tender nodes, No lymphadema, No other Psychological: anxiety, depression; No no complaints, No nl mood/affect, No confusion, No suicidal, No other Exam/Review of Systems Exam Vitals Vital Signs Date Temp Pulse Resp B/P (MAP) Pulse Ox O2 O2 Flow FiO2 Time Delivery Rate 04/30/19 76 08:00 04/30/19 98.2 18 131/62 91 07:16 (85) 04/29/19 21 20:00 04/29/19 Room Air 15:03 04/28/19 4.0 08:40 Intake and Output 04/29/19 04/29/19 04/30/19 1515:00 23:00 07:00 IntakeIntake Total 680 ml 300 ml OutputOutput Total 0 ml 2 ml BalanceBalance 680 ml 298 ml Constitutional: alert, oriented, well developed, distress, frail Psych: anxiety; No no complaints, No nl mood/affect, No confusion, No depression, No suicidal, No other Head: normocephalic, atraumatic; No lacerations, No hematomas, No other Eyes: EOMI, nl lids, PERRL; No nl conjunctiva, No nl sclera, No icteric, No fundi, disc, No other ENMT: No nl external ears & nose, No nl lips & teeth, No nl nasal mucosa & septum, No mucosa pink and moist, No intubated, No tympanic membranes, No other Neck: jvd, bruits, thyromegaly, nuchal rigidity; No supple, No non-tender, No masses, No other Respiratory: normal air movement, congested cough, crackles/rales, diminished breath sounds, respirations, wheezing; No clear to auscultation, No intercostal retraction, No labored breathing, No tactile fremitus, No other Cardiovascular: nl pulses, bruits, edema; No regular rate and rhythm, No diastolic murmur, No gallop, No irregular rhythm, No jugular venous distention (JVD), No murmurs/extra sounds, No rub, No systolic murmur, No S3, No S4, No other Gastrointestinal: soft, bowel sounds, distended, rebound or guarding, s plenomegaly; No nl liver, spleen, No non-tender, No ascites, No firm, No hepatomegaly, No mass, No surgical scars, No tender, No other Genitourinary - Male: nl penis, nl scrotum Musculoskeletal: joint tenderness; No nl extremities to inspection, No nl gait and stance, No muscle tone, No muscle weakness, No range of motion, No spine non-tender, No swelling, No other Extremities: edema; No normal pulses, No calf tenderness, No cyanosis, No clubbing, No pitting pedal edema, No palpable cord, No tenderness, No other Neurological: HEALTH AND WELLNESS COORDINATOR II-XII intact Results Results 24hrs Laboratory Tests Test 04/29/19 11:31 04/29/19 17:17 04/29/19 20:54 04/30/19 04:35 Bedside Glucose 144 216 136 Phosphorus Level 4.6 Magnesium Level 2.2 Test 04/30/19 04:43 04/30/19 07:50 White Blood Count 7.4 Red Blood Count 2.86 L Hemoglobin 8.0 L Hematocrit 25.9 L Mean Corpuscular Volume 90.6 Mean Corpuscular 28.0 L Hemoglobin Mean Corpuscular 30.9 L Hemoglobin Concent Red Cell Distribution 15.4 H Width Platelet Count 248 Mean Platelet Volume 9.7 Immature Granulocytes % 0.300 Neutrophils % 67.7 Lymphocytes % 17.3 Monocytes % 11.6 H Eosinophils % 2.7 Basophils % 0.4 Nucleated Red Blood 0.0 Cells % Immature Granulocytes # 0.020 Neutrophils # 5.0 Lymphocytes # 1.3 Monocytes # 0.9 Eosinophils # 0.2 Basophils # 0.0 Nucleated Red Blood 0.0 Cells # Sodium Level 142 Potassium Level 3.8 Chloride Level 106 Carbon Dioxide Level 26 Anion Gap 10 Blood Urea Nitrogen 32 H Creatinine 3.16 H Est Glomerular Filtrat 20 L Rate mL/min Glucose Level 145 Calcium Level 9.3 Total Bilirubin 0.5 Direct Bilirubin 0.00 Indirect Bilirubin 0.5 Aspartate Amino 27 Transf (AST/SGOT) Alanine 40 Aminotransferase (ALT/SG PT) Alkaline Phosphatase 70 Total Protein 6.5 Albumin 3.8 Globulin 2.70 Albumin/Globulin Ratio 1.40 Bedside Glucose 138 Medications Medication Current Medications Amiodarone HCl (Cordarone) 200 mg DAILY PO Last administered on 04/30/19 08:24; Admin Dose 200 MG; Start 04/28/19 at 09:00 Amitriptyline HCl (Elavil) 25 mg QHS PO Last administered on 04/29/19 20:58; Admin Dose 25 MG; Start 04/28/19 at 21:00 Amlodipine Besylate (Norvasc) 2.5 mg DAILY PO Last administered on 04/30/19 08:24; Admin Dose 2.5 MG; Start 04/28/19 at 09:00 Aspirin (Halfprin) 81 mg DAILY PO Last administered on 04/30/19 08:23; Admin Dose 81 MG; Start 04/28/19 at 09:00 Atorvastatin Calcium (Lipitor) 80 mg QHS PO Last administered on 04/29/19 20:58; Admin Dose 80 MG; Start 04/28/19 at 21:00 Carvedilol (Coreg) 25 mg BID PO Last administered on 04/30/19 08:23; Admin Dose 25 MG; Start 04/28/19 at 09:00 Cilostazol (Pletal) 100 mg BID PO Last administered on 04/30/19 08:24; Admin Dose 100 MG; Start 04/28/19 at 09:00 Clopidogrel Bisulfate (plaVIX) 75 mg DAILY PO Last administered on 04/30/19 08:24; Admin Dose 75 MG; Start 04/28/19 at 09:00 Duloxetine HCl (Cymbalta) 60 mg DAILY PO Last administered on 04/30/19 08:25; Admin Dose 60 MG; Start 04/28/19 at 09:00 EZETIMIBE (Zetia) 10 mg HS PO Last administered on 04/29/19 20:55; Admin Dose 10 MG; Start 04/28/19 at 21:00 Gabapentin (Neurontin) 300 mg TID PO Last administered on 04/30/19 08:24; Admin Dose 300 MG; Start 04/28/19 at 09:00 Hydralazine HCl (Apresoline) 50 mg BID PO Last administered on 04/30/19 09:18; Admin Dose 50 MG; Start 04/28/19 at 09:00 Insulin Aspart (Novolog Insulin Pen) 6 unit WITH MEALS SC Last administered on 04/29/19 17:27; Admin Dose 6 UNIT; Start 04/28/19 at 07:35 Isosorbide Dinitrate (Isordil) 10 mg TID PO Last administered on 04/30/19 08:24; Admin Dose 10 MG; Start 04/28/19 at 09:00 Amylase/Lipase/ Protease (Creon ([id number])) 1 cap WITH MEALS PO Last administered on 04/30/19 10:06; Admin Dose 1 CAP; Start 04/28/19 at 07:35 Pantoprazole (Protonix Tab) 40 mg AC BREAKFAST PO Last administered on 04/30/19 06:31; Admin Dose 40 MG; Start 04/28/19 at 07:00 Ondansetron HCl (Zofran Inj) 4 mg Q6H PRN IV nausea,vomiting.; Start 04/28/19 at 06:00 Morphine Sulfate (morphine) 2 mg Q3HWA PRN IV pain and severe sob.; Start 04/28/19 at 06:00 Miscellaneous Information 1 ea NOTE XX ; Start 04/28/19 at 07:00 Glucose (Glutose) 15 gm Q15M PRN PO DECREASED GLUCOSE; Start 04/28/19 at 07:00 Glucose (Glutose) 22.5 gm Q15M PRN PO DECREASED GLUCOSE; Start 04/28/19 at 07:00 Dextrose (D50w Syringe) 25 ml Q15M PRN IV DECREASED GLUCOSE; Start 04/28/19 at 07:00 Dextrose (D50w Syringe) 50 ml Q15M PRN IV DECREASED GLUCOSE; Start 04/28/19 at 07:00 Glucagon (Glucagen) 1 mg Q15M PRN IM DECREASED GLUCOSE; Start 04/28/19 at 07:00 Glucose (Glutose) 15 gm Q15M PRN BUCCAL DECREASED GLUCOSE; Start 04/28/19 at 07:00 Insulin Aspart (Novolog Insulin Pen) (Adult SC Insulin - Moder... WITH MEALS BEDTIME SC Last administered on 04/29/19at 17:27; Admin Dose 4 UNIT; Start 04/28/19 at 17:35 Diagnostic Test (Pha) (Accu-Chek) 1 ea 02 XX ; Start 04/29/19 at 02:00 Bumetanide (Bumex) 1 mg BID DIURETICS PO Last administered on 04/30/19at 06:31; Admin Dose 1 MG; Start 04/28/19 at 18:00 Insulin Glargine (Lantus) 12 units HS SC Last administered on 04/29/19at 21:15; Admin Dose 12 UNITS; Start 04/28/19 at 21:00 ELBERT DIANA MD Apr 30, 2019 10:53
[2019-04-30] MEDS ORDERED: METHYLPREDNISOLONE 125 MG INJ IV ONE (12:30)
[2019-04-30] MEDS: AZITHROMYCIN 500MG/NS (PMX) 250 ML IVPB SCH (12:53)
--- NOTE | 2019-04-30 13:23 | CONS ---
Assessment/Plan Assessment/Plan Hospital Course (Demo Recall) IMPRESSION: 1. Congestive heart failure, systolic, acute on chronic.-reasonable volume status 2. History of PTCA and stent placement to circumflex for ST elevation myocardial infarction in 12/2017.-neg trop x 3 3. Hypertension, reasonable control at this time. 4. Dyslipidemia. 5. History of ST-elevation myocardial infarction in 07/2018. 6. Anemia. 7. Leukocytosis. 8. Renal failure.--acute on chronic 9. PLeural effusion-s/p thracentesis 10. ? h/o cardiac arrythmia on amiodarone at baseline Recc: -Tele -serial ecg's -Continue BB/norvasc/hydralazine with well controlled BP -Contineu statin/zetia -Continue isordil -Continue asa/plavix/pletal and follow for any bleeding complications -Continue amiodarone and follow for any recurrent arrythmias -Continue Bumex and follow volume status -renal following Consultation Date/Type/Reason Admit Date/Time Apr 28, 2019 at 02:38 Initial Consult Date 04/29/19 Type of Consult Cardiology Reason for Consultation CHF Requesting Provider: ELBERT DIANA MD Date/Time of Note DATE: 04/30/19 TIME: 13:17 Exam/Review of Systems Vital Signs Vitals Vital Signs Date Temp Pulse Resp B/P (MAP) Pulse Ox O2 O2 Flow FiO2 Time Delivery Rate 04/30/19 79 12:00 04/30/19 98.5 17 126/74 93 11:49 (91) 04/29/19 21 20:00 04/29/19 Room Air 15:03 04/28/19 4.0 08:40 Intake and Output 04/29/19 04/29/19 04/30/19 1515:00 23:00 07:00 IntakeIntake Total 680 ml 300 ml OutputOutput Total 0 ml 2 ml BalanceBalance 680 ml 298 ml Exam Exam Review of Systems: CONSTITUTIONAL: No fevers, chills. PULMONARY: No sob CARDIOVASCULAR: No chest pain/palpitations GASTROINTESTINAL: No nausea/vomiting. GENITOURINARY: No hematuria/dysuria. MUSCULOSKELETAL: No myagias/arthalgias. PSYCHIATRIC: The patient denies depression. NEUROLOGIC: No weakness Constitutional: alert Psych: no complaints Head: normocephalic ENMT: mucosa pink and moist Neck: supple, jvd (9 cm water) Respiratory: diminished breath sounds Cardiovascular: regular rate and rhythm Gastrointestinal: soft, non-tender Musculoskeletal: muscle tone (normal) Extremities: edema (none) Neurological: other (No focal deficits) Labs Result Diagram: 04/30/19 0443 04/30/193 Results 24hrs Laboratory Tests Test 04/29/19 17:17 04/29/19 20:54 04/30/19 04:35 04/30/19 04:43 Bedside Glucose 216 136 Phosphorus Level 4.6 Magnesium Level 2.2 White Blood Count 7.4 Red Blood Count 2.86 L Hemoglobin 8.0 L Hematocrit 25.9 L Mean Corpuscular Volume 90.6 Mean Corpuscular 28.0 L Hemoglobin Mean Corpuscular 30.9 L Hemoglobin Concent Red Cell Distribution 15.4 H Width Platelet Count 248 Mean Platelet Volume 9.7 Immature Granulocytes % 0.300 Neutrophils % 67.7 Lymphocytes % 17.3 Monocytes % 11.6 H Eosinophils % 2.7 Basophils % 0.4 Nucleated Red Blood 0.0 Cells % Immature Granulocytes # 0.020 Neutrophils # 5.0 Lymphocytes # 1.3 Monocytes # 0.9 Eosinophils # 0.2 Basophils # 0.0 Nucleated Red Blood 0.0 Cells # Sodium Level 142 Potassium Level 3.8 Chloride Level 106 Carbon Dioxide Level 26 Anion Gap 10 Blood Urea Nitrogen 32 H Creatinine 3.16 H Est Glomerular Filtrat 20 L Rate mL/min Glucose Level 145 Calcium Level 9.3 Total Bilirubin 0.5 Direct Bilirubin 0.00 Indirect Bilirubin 0.5 Aspartate Amino 27 Transf (AST/SGOT) Alanine 40 Aminotransferase (ALT/SG PT) Alkaline Phosphatase 70 Total Protein 6.5 Albumin 3.8 Globulin 2.70 Albumin/Globulin Ratio 1.40 Test 04/30/19 07:50 04/30/19 11:48 Bedside Glucose 138 138 Medications Medications Current Medications Amiodarone HCl (Cordarone) 200 mg DAILY PO Last administered on 04/30/19at 08:24; Admin Dose 200 MG; Start 04/28/19 at 09:00 Amitriptyline HCl (Elavil) 25 mg QHS PO Last administered on 04/29/19at 20:58; Admin Dose 25 MG; Start 04/28/19 at 21:00 Amlodipine Besylate (Norvasc) 2.5 mg DAILY PO Last administered on 04/30/19 08:24; Admin Dose 2.5 MG; Start 04/28/19 at 09:00 Aspirin (Halfprin) 81 mg DAILY PO Last administered on 04/30/19 08:23; Admin Dose 81 MG; Start 04/28/19 at 09:00 Atorvastatin Calcium (Lipitor) 80 mg QHS PO Last administered on 04/29/19 20:58; Admin Dose 80 MG; Start 04/28/19 at 21:00 Carvedilol (Coreg) 25 mg BID PO Last administered on 04/30/19 08:23; Admin Dose 25 MG; Start 04/28/19 at 09:00 Cilostazol (Pletal) 100 mg BID PO Last administered on 04/30/19 08:24; Admin Dose 100 MG; Start 04/28/19 at 09:00 Clopidogrel Bisulfate (plaVIX) 75 mg DAILY PO Last administered on 04/30/19 08:24; Admin Dose 75 MG; Start 04/28/19 at 09:00 Duloxetine HCl (Cymbalta) 60 mg DAILY PO Last administered on 04/30/19 08:25; Admin Dose 60 MG; Start 04/28/19 at 09:00 EZETIMIBE (Zetia) 10 mg HS PO Last administered on 04/29/19 20:55; Admin Dose 10 MG; Start 04/28/19 at 21:00 Gabapentin (Neurontin) 300 mg TID PO Last administered on 04/30/19 12:54; Admin Dose 300 MG; Start 04/28/19 at 09:00 Hydralazine HCl (Apresoline) 50 mg BID PO Last administered on 04/30/19 09:18; Admin Dose 50 MG; Start 04/28/19 at 09:00 Insulin Aspart (Novolog Insulin Pen) 6 unit WITH MEALS SC Last administered on 04/30/19 11:52; Admin Dose 6 UNIT; Start 04/28/19 at 07:35 Isosorbide Dinitrate (Isordil) 10 mg TID PO Last administered on 04/30/19 12:54; Admin Dose 10 MG; Start 04/28/19 at 09:00 Amylase/Lipase/ Protease (Creon ([id number])) 1 cap WITH MEALS PO Last administered on 04/30/19 11:49; Admin Dose 1 CAP; Start 04/28/19 at 07:35 Pantoprazole (Protonix Tab) 40 mg AC BREAKFAST PO Last administered on 04/30/19 06:31; Admin Dose 40 MG; Start 04/28/19 at 07:00 Ondansetron HCl (Zofran Inj) 4 mg Q6H PRN IV nausea,vomiting.; Start 04/28/19 at 06:00 Morphine Sulfate (morphine) 2 mg Q3HWA PRN IV pain and severe sob.; Start 04/28/19 at 06:00 Miscellaneous Information 1 ea NOTE XX ; Start 04/28/19 at 07:00 Glucose (Glutose) 15 gm Q15M PRN PO DECREASED GLUCOSE; Start 04/28/19 at 07:00 Glucose (Glutose) 22.5 gm Q15M PRN PO DECREASED GLUCOSE; Start 04/28/19 at 07:00 Dextrose (D50w Syringe) 25 ml Q15M PRN IV DECREASED GLUCOSE; Start 04/28/19 at 07:00 Dextrose (D50w Syringe) 50 ml Q15M PRN IV DECREASED GLUCOSE; Start 04/28/19 at 07:00 Glucagon (Glucagen) 1 mg Q15M PRN IM DECREASED GLUCOSE; Start 04/28/19 at 07:00 Glucose (Glutose) 15 gm Q15M PRN BUCCAL DECREASED GLUCOSE; Start 04/28/19 at 07:00 Insulin Aspart (Novolog Insulin Pen) (Adult SC Insulin - Moder... WITH MEALS BEDTIME SC Last administered on 04/29/19 17:27; Admin Dose 4 UNIT; Start 04/28/19 at 17:35 Diagnostic Test (Pha) (Accu-Chek) 1 ea 02 XX ; Start 04/29/19 at 02:00 Bumetanide (Bumex) 1 mg BID DIURETICS PO Last administered on 04/30/19 06:31; Admin Dose 1 MG; Start 04/28/19 at 18:00 Insulin Glargine (Lantus) 12 units HS SC Last administered on 04/29/19 21:15; Admin Dose 12 UNITS; Start 04/28/19 at 21:00 Azithromycin 250 ml @ 250 mls/hr Q24H IVPB Last administered on 04/30/19 12:53; Admin Dose 250 MLS/HR; Start 04/30/19 at 13:00; Stop 05/02/19 at 12:59 Methylprednisolone Sodium Succinate (Solu-Medrol) 60 mg ONCE ONCE IV ; Start 05/01/19 at 12:30; Stop 05/01/19 at 12:31 Methylprednisolone Sodium Succinate (Solu-Medrol) 40 mg ONCE ONCE IM ; Start 05/02/19 at 12:30; Stop 05/02/19 at 12:31 SRINIVAS SAWYER Apr 30, 2019 13:23
[2019-04-30] MEDS: ATORVASTATIN 80 MG TAB PO SCH (21:05)
[2019-04-30] MEDS: EZETIMIBE 10 MG TAB PO SCH (21:06)
[2019-04-30] MEDS: AMITRIPTYLINE 25 MG TAB PO SCH (21:07)
[2019-04-30] MEDS: INSULIN GLARGINE [LANTus] (100 UNITS/ML) SYG SC SCH (21:14)
[2019-05-01] VITALS (10 sets, daily range): BP systolic 121–136; BP diastolic 57–64; PULSE 78–107; RESP 17–20
[2019-05-01] MEDS: ACCUCHECK AT 2AM (Patients on SS coverage) XX SCH (02:00)
[2019-05-01] MEDS: BUMETANIDE 1 MG TAB PO SCH (05:46)
[2019-05-01] MEDS: PANTOPRAZOLE (EC) 40 MG TAB PO SCH (06:58)
[2019-05-01] MEDS: Insulin NOVOLOG SS MODERATE Algorithm (SS with meals and bedtime) SC SCH ×4 (07:48→21:48)
[2019-05-01] MEDS: INSULIN ASPART [NOVOLOG] 3 ML PEN SC SCH ×3 (07:49→17:04)
[2019-05-01] MEDS: CREON (24K-76K-120K) 1 CAP PO SCH ×3 (07:50→16:40)
[2019-05-01] MEDS: ASPIRIN (EC) 81 MG TAB PO SCH (07:50)
[2019-05-01] MEDS: DULOXETINE 30 MG CAP DR PO SCH (07:50)
[2019-05-01] MEDS: CILOSTAZOL 100 MG TAB PO SCH ×2 (07:50→21:29)
[2019-05-01] MEDS: GABAPENTIN 300 MG CAP PO SCH ×3 (07:51→21:29)
[2019-05-01] MEDS: CLOPIDOGREL 75 MG TAB PO SCH (07:51)
[2019-05-01] MEDS: AMIODARONE 200 MG TAB PO SCH (07:51)
[2019-05-01] MEDS: AMLODIPINE 2.5 MG TAB PO SCH (07:51)
[2019-05-01] MEDS: ISOSORBIDE DINITRATE 10 MG TAB PO SCH ×3 (07:51→21:28)
--- NOTE | 2019-05-01 08:29 | PN ---
Date/Time of Note Date/Time of Note DATE: 05/01/19 TIME: 08:23 Assessment/Plan VTE Prophylaxis Risk score (from Ns)>0 risk: 4 SCD applied (from [facility] [place]): No SCD contraindicated: other (on.) Pharmacological prophylaxis: other (Plan to perform a thoracentesis.) Pharm contraindication: bleeding Lines/Catheters IV Catheter Type (from [facility]): Peripheral IV Central line still needed: No Urinary Cath still in place: No Reason Cath still needed: urinary retention Assessment/Plan Assessment/Plan 1. Pulmonary edema- IHD angina; s/p recurrent acute stemi and a Hx of V- fib cardiac arrest: s/p shock, amiodarone and epinephrine in the field before ROSC-PTCA with stenting of mid LCx; no new onset pulmonary edema with right hydrothorax 2. ZBIGNIEW -IV ( Hx of contrast use received for cardiac cath .Judicious fluid management. Creatinine decreased from 2.6to 1.9 now again went up to 2.69; 3. Severe lactic acidosis with the hx of elevation and now the level is 7: Secondary to copd exacerbation, uti. 4. IHD angina; s/p acute stemi; V-fib cardiac arrest: 06/2018;s/p cardiogenic shock, amiodarone and epinephrine in the field before ROSC-PTCA with stenting of mid LCxS/p intubation for cardiac arrest and respiratory failure and successful extubation 5. Hypertension: nitro drip stopped, cont. BP meds. Adjust as needed 6. COPD- history of heavy smoking and current smoking a pack/day. nicotine addiction. 7. S/P recurrent episodes of pulmonary edema the first one 07/23/18 at about 4pm with resuscitative measures(iv lasix,02; BIPAP,solumedrol) improved. 2 more admissions for the same reason. History of smoking and using etoh more than usual in the past. 8.Dyslipidemia 9.Anoxic encephalopathy 10.Aspiration pneumonia? 11.BPH 12.Liver cirrhosis(alcoholic). 13.PAD with the hx of stenting of arteries of extremities 14.ED 15.ATN with creatinine level of more than 6; came down to 2.6; the last one as outpatient 1,9 in the office 3 sdays ago. decrease of creatinine 16.Constipation 17.Liver cirrhosis, probably alcoholic 18.Memory impairment 19.S/P icd implantation on left s/c area. 20.Right more than pleural effusion. Status post thoracentesis. Plan to repeat it today. 21. Diabetes mellitus type 2 with uncontrolled blood sugar partially due to of steroid use and also for losing sweets. 22. Right-sided chest pain. 23. Incomplete data. Result Diagram: 05/01/19 0513 05/01/19 0513 Results 24hrs Laboratory Tests Test 04/30/19 11:48 04/30/19 17:06 04/30/19 20:58 05/01/19 02:33 Bedside Glucose 138 293 H 471 *H 290 H Test 05/01/19 05:13 05/01/19 07:47 White Blood Count 11.2 #H Red Blood Count 2.80 L Hemoglobin 7.8 L Hematocrit 24.9 L Mean Corpuscular 88.9 Volume Mean Corpuscular 27.9 L Hemoglobin Mean Corpuscular 31.3 L Hemoglobin Concent Red Cell Distribution 14.7 H Width Platelet Count 266 Mean Platelet Volume 9.8 Immature Granulocytes 0.800 H % Neutrophils % 92.7 H Lymphocytes % 5.2 L Monocytes % 1.2 Eosinophils % 0.0 Basophils % 0.1 Nucleated Red Blood 0.0 Cells % Immature Granulocytes 0.090 H # Neutrophils # 10.4 H Lymphocytes # 0.6 L Monocytes # 0.1 L Eosinophils # 0.0 Basophils # 0.0 Nucleated Red Blood 0.0 Cells # Sodium Level 141 Potassium Level 4.2 Chloride Level 107 Carbon Dioxide Level 24 Anion Gap 10 Blood Urea Nitrogen 40 H Creatinine 3.28 H Est Glomerular 19 L Filtrat Rate mL/min Glucose Level 239 H Calcium Level 9.0 Phosphorus Level 3.3 Magnesium Level 2.2 Total Bilirubin 0.4 Direct Bilirubin 0.00 Indirect Bilirubin 0.4 Aspartate Amino 18 Transf (AST/SGOT) Alanine 37 Aminotransferase (ALT /SGPT) Alkaline Phosphatase 68 Total Protein 6.5 Albumin 3.5 Globulin 3.00 Albumin/Globulin 1.16 Ratio Bedside Glucose 239 H Subjective 24 Hr Interval Summary Free Text/Dictation Decreased cough intensity. Decreased wheezing. No fever or chills. Admits that he likes to drink sugar containing beverages. Discussed hazardous effect outpatient with diabetes mellitus and he is taking the sugar in the liquid form if at all. It seems to be understood. Dietary consult requested. Right-sided chest pain more than left-sided particularly while coughing. Constitutional: improved, poor po, requiring O2; No no complaints, No chills, No diaphoresis, No disoriented, No febrile, No requiring IVF, No other Eyes: redness; No no complaints, No pain, No discharge, No visual change, No other ENT: No no complaints, No bleeding, No pain, No congestion, No discharge, No dysphagia, No sore throat, No other Respiratory: cough, wheezing; No no complaints, No pain, No pleuritic pain, No shortness of breath, No sputum, No other Cardiovascular: chest pain, orthopenea; No no complaints, No edema, No lightheadedness, No palpitations, No paroxysmal nocturnal dyspnea, No other Gastrointestinal: constipation, decreased appetite; No no complaints, No pain, No blood, No diarrhea, No flatus, No nausea, No passing stool, No vomiting, No other Genitourinary: dysuria, discharge; No no complaints, No bleeding, No flank pain, No hematuria, No other Musculoskeletal: back pain, bone/joint pain, neck pain; No no complaints, No restricted range of motion, No swelling, No other Skin: No no complaints, No bruising, No erythema, No laceration, No pruritis, No rash, No skin lesions, No other Neurologic: confusion; No no complaints, No dizziness, No focal-weakness, No headache, No syncope, No seizure, No other Endocrine: polyuria, dry skin; No no complaints, No polydypsia, No temp intolerance, No other Psychological: anxiety; No no complaints, No nl mood/affect, No confusion, No depression, No suicidal, No other Exam/Review of Systems Exam Vitals Vital Signs Date Temp Pulse Resp B/P (MAP) Pulse Ox O2 O2 Flow FiO2 Time Delivery Rate 05/01/19 93 08:02 05/01/19 97.9 18 130/59 95 07:18 (82) 04/29/19 21 20:00 04/29/19 Room Air 15:03 04/28/19 4.0 08:40 Intake and Output 04/30/19 04/30/19 05/01/19 1515:00 23:00 07:00 IntakeIntake Total 250 ml 700 ml 200 ml BalanceBalance 250 ml 700 ml 200 ml Constitutional: alert, oriented, well developed, distress, frail; No non-verbal, No obese, No other Psych: anxiety; No no complaints, No nl mood/affect, No confusion, No depression, No suicidal, No other Head: normocephalic, atraumatic; No lacerations, No hematomas, No other Eyes: EOMI, nl lids; No nl conjunctiva, No nl sclera, No PERRL, No icteric, No fundi, disc, No other Neck: jvd, bruits, nuchal rigidity; No supple, No non-tender, No masses, No thyromegaly, No other Respiratory: normal air movement, congested cough, diminished breath sounds, wheezing; No clear to auscultation, No crackles/rales, No intercostal retraction, No labored breathing, No respirations, No tactile fremitus, No other Cardiovascular: regular rate and rhythm, jugular venous distention (JVD), syst olic murmur Gastrointestinal: soft, bowel sounds; No nl liver, spleen, No non-tender, No ascites, No distended, No firm, No hepatomegaly, No mass, No rebound or guarding, No splenomegaly, No surgical scars, No tender, No other Genitourinary - Male: nl penis, nl scrotum; No CVA tenderness, No discharge, No other Musculoskeletal: joint tenderness, muscle tone, muscle weakness; No nl extremities to inspection, No nl gait and stance, No range of motion, No spine non-tender, No swelling, No other Extremities: No normal pulses, No calf tenderness, No cyanosis, No clubbing, No edema, No pitting pedal edema, No palpable cord, No tenderness, No other Neurological: [employer]ENDANT II-XII intact; No nl mental status, No nl speech, No nl strength, No confused, No DTR's symmetric, No focal weakness, No lethargic, No numbness, No reflexes, No unresponsive, No other Skin: nl turgor (Decreased.); No rash or lesions, No diaphoresis, No ecchymosis, No laceration, No puncture, No other Lymph: No nl lymph nodes, No enlarged, No nontender, No other Results Results 24hrs Laboratory Tests Test 04/30/19 11:48 04/30/19 17:06 04/30/19 20:58 05/01/19 02:33 Bedside Glucose 138 293 H 471 *H 290 H Test 05/01/19 05:13 05/01/19 07:47 White Blood Count 11.2 #H Red Blood Count 2.80 L Hemoglobin 7.8 L Hematocrit 24.9 L Mean Corpuscular 88.9 Volume Mean Corpuscular 27.9 L Hemoglobin Mean Corpuscular 31.3 L Hemoglobin Concent Red Cell Distribution 14.7 H Width Platelet Count 266 Mean Platelet Volume 9.8 Immature Granulocytes 0.800 H % Neutrophils % 92.7 H Lymphocytes % 5.2 L Monocytes % 1.2 Eosinophils % 0.0 Basophils % 0.1 Nucleated Red Blood 0.0 Cells % Immature Granulocytes 0.090 H # Neutrophils # 10.4 H Lymphocytes # 0.6 L Monocytes # 0.1 L Eosinophils # 0.0 Basophils # 0.0 Nucleated Red Blood 0.0 Cells # Sodium Level 141 Potassium Level 4.2 Chloride Level 107 Carbon Dioxide Level 24 Anion Gap 10 Blood Urea Nitrogen 40 H Creatinine 3.28 H Est Glomerular 19 L Filtrat Rate mL/min Glucose Level 239 H Calcium Level 9.0 Phosphorus Level 3.3 Magnesium Level 2.2 Total Bilirubin 0.4 Direct Bilirubin 0.00 Indirect Bilirubin 0.4 Aspartate Amino 18 Transf (AST/SGOT) Alanine 37 Aminotransferase (ALT /SGPT) Alkaline Phosphatase 68 Total Protein 6.5 Albumin 3.5 Globulin 3.00 Albumin/Globulin 1.16 Ratio Bedside Glucose 239 H Medications Medication Current Medications Amiodarone HCl (Cordarone) 200 mg DAILY PO Last administered on 05/01/19 07:51; Admin Dose 200 MG; Start 04/28/19 at 09:00 Amitriptyline HCl (Elavil) 25 mg QHS PO Last administered on 04/30/19at 21:07; Admin Dose 25 MG; Start 04/28/19 at 21:00 Amlodipine Besylate (Norvasc) 2.5 mg DAILY PO Last administered on 05/01/19 07:51; Admin Dose 2.5 MG; Start 04/28/19 at 09:00 Aspirin (Halfprin) 81 mg DAILY PO Last administered on 05/01/19 07:50; Admin Dose 81 MG; Start 04/28/19 at 09:00 Atorvastatin Calcium (Lipitor) 80 mg QHS PO Last administered on 04/30/19 21:05; Admin Dose 80 MG; Start 04/28/19 at 21:00 Carvedilol (Coreg) 25 mg BID PO Last administered on 05/01/19 07:50; Admin Dose 25 MG; Start 04/28/19 at 09:00 Cilostazol (Pletal) 100 mg BID PO Last administered on 05/01/19 07:50; Admin Dose 100 MG; Start 04/28/19 at 09:00 Clopidogrel Bisulfate (plaVIX) 75 mg DAILY PO Last administered on 05/01/19 07:51; Admin Dose 75 MG; Start 04/28/19 at 09:00 Duloxetine HCl (Cymbalta) 60 mg DAILY PO Last administered on 05/01/19 07:50; Admin Dose 60 MG; Start 04/28/19 at 09:00 EZETIMIBE (Zetia) 10 mg HS PO Last administered on 04/30/19 21:06; Admin Dose 10 MG; Start 04/28/19 at 21:00 Gabapentin (Neurontin) 300 mg TID PO Last administered on 05/01/19 07:51; Admin Dose 300 MG; Start 04/28/19 at 09:00 Hydralazine HCl (Apresoline) 50 mg BID PO Last administered on 05/01/19 07:50; Admin Dose 50 MG; Start 04/28/19 at 09:00 Insulin Aspart (Novolog Insulin Pen) 6 unit WITH MEALS SC Last administered on 05/01/19 07:49; Admin Dose 6 UNIT; Start 04/28/19 at 07:35 Isosorbide Dinitrate (Isordil) 10 mg TID PO Last administered on 05/01/19 07:51; Admin Dose 10 MG; Start 04/28/19 at 09:00 Amylase/Lipase/ Protease (Creon ([id number])) 1 cap WITH MEALS PO Last administered on 05/01/19 07:50; Admin Dose 1 CAP; Start 04/28/19 at 07:35 Pantoprazole (Protonix Tab) 40 mg AC BREAKFAST PO Last administered on 05/01/19 06:58; Admin Dose 40 MG; Start 04/28/19 at 07:00 Ondansetron HCl (Zofran Inj) 4 mg Q6H PRN IV nausea,vomiting.; Start 04/28/19 at 06:00 Morphine Sulfate (morphine) 2 mg Q3HWA PRN IV pain and severe sob.; Start 04/28/19 at 06:00 Miscellaneous Information 1 ea NOTE XX ; Start 04/28/19 at 07:00 Glucose (Glutose) 15 gm Q15M PRN PO DECREASED GLUCOSE; Start 04/28/19 at 07:00 Glucose (Glutose) 22.5 gm Q15M PRN PO DECREASED GLUCOSE; Start 04/28/19 at 07:00 Dextrose (D50w Syringe) 25 ml Q15M PRN IV DECREASED GLUCOSE; Start 04/28/19 at 07:00 Dextrose (D50w Syringe) 50 ml Q15M PRN IV DECREASED GLUCOSE; Start 04/28/19 at 07:00 Glucagon (Glucagen) 1 mg Q15M PRN IM DECREASED GLUCOSE; Start 04/28/19 at 07:00 Glucose (Glutose) 15 gm Q15M PRN BUCCAL DECREASED GLUCOSE; Start 04/28/19 at 07:00 Insulin Aspart (Novolog Insulin Pen) (Adult SC Insulin - Moder... WITH MEALS BEDTIME SC Last administered on 05/01/19at 07:48; Admin Dose 6 UNIT; Start 04/28/19 at 17:35 Diagnostic Test (Pha) (Accu-Chek) 1 ea 02 XX ; Start 04/29/19 at 02:00 Insulin Glargine (Lantus) 12 units HS SC Last administered on 04/30/19at 21:14; Admin Dose 12 UNITS; Start 04/28/19 at 21:00 Azithromycin 250 ml @ 250 mls/hr Q24H IVPB Last administered on 04/30/19at 12:53; Admin Dose 250 MLS/HR; Start 04/30/19 at 13:00; Stop 05/02/19 at 12:59 Methylprednisolone Sodium Succinate (Solu-Medrol) 60 mg ONCE ONCE IV ; Start 05/01/19 at 12:30; Stop 05/01/19 at 12:31 Methylprednisolone Sodium Succinate (Solu-Medrol) 40 mg ONCE ONCE IM ; Start 05/02/19 at 12:30; Stop 05/02/19 at 12:31 Bumetanide (Bumex) 1 mg DAILY PO ; Start 05/02/19 at 18:00 ELBERT DIANA MD May 01, 2019 08:28
--- NOTE | 2019-05-01 09:26 | PN ---
DATE: 05/01/2019 SUBJECTIVE: The patient is stable, pending possible thoracentesis today. OBJECTIVE: VITAL SIGNS: Blood pressure is 130/59, pulse 93, respirations 18, temperature 97.9. HEENT: Head is normocephalic. NECK: Supple. HEART: Regular rate. LUNGS: Show diminished breath sounds at the base. ABDOMEN: Soft, nontender to palpation without rebound or guarding. EXTREMITIES: Negative for clubbing, cyanosis, no edema. DERMATOLOGIC: No rashes. MUSCULOSKELETAL: No joint effusion. NEUROLOGIC: No change in exam. MEDICATIONS: Reviewed. LABORATORY DATA: Reviewed. ASSESSMENT AND PLAN: 1. Nonoliguric acute kidney injury on top of chronic kidney disease stage IV with previous baseline creatinine around 2.5 to 3.0 mg/dL. Etiology of acute kidney injury is secondary to hemodynamics, di uretic therapy. The patient's renal function has been declining over the past 48 hours, likely due t o diuretics. Plan is to deescalate Bumex. We would otherwise continue supportive care, renally dose all medications and avoid nephrotoxins. 2. Hypertension. Blood pressure is improved. Continue to monitor. 3. Acute decompensated heart failure. The patient is clinically improving. Appears euvolemic on ex am. We will adjust diuretic therapy as stated above, due to declining renal function. 4. Acute hypoxemic respiratory failure secondary to pulmonary edema, pleural effusions, improving. Continue medical management. 5. Pleural effusion. The patient is pending thoracentesis. 6. Anemia. Continue to monitor hemoglobin and hematocrit levels. 7. Mineral bone disorder. Monitor calcium and phosphorus levels. 8. Coronary artery disease. Continue medical management. 9. Dyslipidemia. Continue statin therapy. 10. Diabetes. Continue current insulin regimen. 11. History of ETOH liver disease. Continue to monitor closely. Continue supportive care. Dictated By: LILY VASQUEZ DO NR/NTS Conf#: [id number] DID#: [id number] CC: ELBERT DIANA MD; RONA TOUSSAINT MD;*EndCC*
--- NOTE | 2019-05-01 11:04 | CONS ---
Assessment/Plan Assessment/Plan Assessment/Plan (Daily) Chest x-ray was reviewed from today which is essentially clear. Assessment and recommendations; 1. Patient admitted with CHF exacerbation with right pleural effusion status post thoracentesis without any significant further recurrence based upon chest x-ray today as well as examination. 2. History of cirrhosis of liver. 3. History of cardiac arrhythmia, status post pacemaker placement in the past. 4. History of renal insufficiency. Continue current supportive care. Consider discharge. Obtain follow-up chest x-ray in about a week as an outpatient basis. If the patient has recurrent pl eural effusion, he may be a candidate for chemical pleurodesis. Consultation Date/Type/Reason Admit Date/Time Apr 28, 2019 at 02:38 Initial Consult Date Type of Consult Pulmonary Patient's condition is stable. Significant improvement in shortness of breath after undergoing thoracentesis yesterday. Denies any chest pain, coughing, wheezing. Requesting Provider: ELBERT DIANA MD Date/Time of Note DATE: 05/01/19 TIME: 11:02 24 HR Interval Summary Free Text/Dictation Patient's condition is stable. Denies any shortness breath, chest pain. General exam; elderly male, awake alert, currently in no distress. Exam/Review of Systems Exam Vitals Vital Signs Date Temp Pulse Resp B/P (MAP) Pulse Ox O2 O2 Flow FiO2 Time Delivery Rate 05/01/19 93 08:02 05/01/19 97.9 18 130/59 95 07:18 (82) 04/29/19 21 20:00 04/29/19 Room Air 15:03 04/28/19 4.0 08:40 Intake and Output 04/30/19 04/30/19 05/01/19 1515:00 23:00 07:00 IntakeIntake Total 250 ml 700 ml 200 ml BalanceBalance 250 ml 700 ml 200 ml Exam H EENT exam; supple neck, positive JVD. No lymphadenopathy. Midline trachea. No thyromegaly. No neck masses. Patient has carious teeth. Chest exam; Clear to auscultation. S1-S2 audible, no murmurs. Pacemaker in left chest wall. Abdomen exam; soft, nontender. No organomegaly. Bowel sounds audible. Extremity exam; no peripheral edema clubbing. MOLD PREPARER exam; no focal deficit. Results Result Diagram: 05/01/19 0513 05/01/19 0513 Results 24hrs Laboratory Tests Test 04/30/19 11:48 04/30/19 17:06 04/30/19 20:58 05/01/19 02:33 Bedside Glucose 138 293 H 471 *H 290 H Test 05/01/19 05:13 05/01/19 07:47 White Blood Count 11.2 #H Red Blood Count 2.80 L Hemoglobin 7.8 L Hematocrit 24.9 L Mean Corpuscular 88.9 Volume Mean Corpuscular 27.9 L Hemoglobin Mean Corpuscular 31.3 L Hemoglobin Concent Red Cell Distribution 14.7 H Width Platelet Count 266 Mean Platelet Volume 9.8 Immature Granulocytes 0.800 H % Neutrophils % 92.7 H Lymphocytes % 5.2 L Monocytes % 1.2 Eosinophils % 0.0 Basophils % 0.1 Nucleated Red Blood 0.0 Cells % Immature Granulocytes 0.090 H # Neutrophils # 10.4 H Lymphocytes # 0.6 L Monocytes # 0.1 L Eosinophils # 0.0 Basophils # 0.0 Nucleated Red Blood 0.0 Cells # Sodium Level 141 Potassium Level 4.2 Chloride Level 107 Carbon Dioxide Level 24 Anion Gap 10 Blood Urea Nitrogen 40 H Creatinine 3.28 H Est Glomerular 19 L Filtrat Rate mL/min Glucose Level 239 H Calcium Level 9.0 Phosphorus Level 3.3 Magnesium Level 2.2 Total Bilirubin 0.4 Direct Bilirubin 0.00 Indirect Bilirubin 0.4 Aspartate Amino 18 Transf (AST/SGOT) Alanine 37 Aminotransferase (ALT /SGPT) Alkaline Phosphatase 68 Total Protein 6.5 Albumin 3.5 Globulin 3.00 Albumin/Globulin 1.16 Ratio Bedside Glucose 239 H Medications Medication Current Medications Amiodarone HCl (Cordarone) 200 mg DAILY PO Last administered on 05/01/19at 07:51; Admin Dose 200 MG; Start 04/28/19 at 09:00 Amitriptyline HCl (Elavil) 25 mg QHS PO Last administered on 04/30/19at 21:07; Admin Dose 25 MG; Start 04/28/19 at 21:00 Amlodipine Besylate (Norvasc) 2.5 mg DAILY PO Last administered on 05/01/19at 07:51; Admin Dose 2.5 MG; Start 04/28/19 at 09:00 Aspirin (Halfprin) 81 mg DAILY PO Last administered on 05/01/19 07:50; Admin Dose 81 MG; Start 04/28/19 at 09:00 Atorvastatin Calcium (Lipitor) 80 mg QHS PO Last administered on 04/30/19 21:05; Admin Dose 80 MG; Start 04/28/19 at 21:00 Carvedilol (Coreg) 25 mg BID PO Last administered on 05/01/19 07:50; Admin Dose 25 MG; Start 04/28/19 at 09:00 Cilostazol (Pletal) 100 mg BID PO Last administered on 05/01/19 07:50; Admin Dose 100 MG; Start 04/28/19 at 09:00 Clopidogrel Bisulfate (plaVIX) 75 mg DAILY PO Last administered on 05/01/19 07:51; Admin Dose 75 MG; Start 04/28/19 at 09:00 Duloxetine HCl (Cymbalta) 60 mg DAILY PO Last administered on 05/01/19 07:50; Admin Dose 60 MG; Start 04/28/19 at 09:00 EZETIMIBE (Zetia) 10 mg HS PO Last administered on 04/30/19 21:06; Admin Dose 10 MG; Start 04/28/19 at 21:00 Gabapentin (Neurontin) 300 mg TID PO Last administered on 05/01/19 07:51; Admin Dose 300 MG; Start 04/28/19 at 09:00 Hydralazine HCl (Apresoline) 50 mg BID PO Last administered on 05/01/19 07:50; Admin Dose 50 MG; Start 04/28/19 at 09:00 Insulin Aspart (Novolog Insulin Pen) 6 unit WITH MEALS SC Last administered on 05/01/19 07:49; Admin Dose 6 UNIT; Start 04/28/19 at 07:35 Isosorbide Dinitrate (Isordil) 10 mg TID PO Last administered on 05/01/19 07:51; Admin Dose 10 MG; Start 04/28/19 at 09:00 Amylase/Lipase/ Protease (Creon ([id number])) 1 cap WITH MEALS PO Last administered on 05/01/19 07:50; Admin Dose 1 CAP; Start 04/28/19 at 07:35 Pantoprazole (Protonix Tab) 40 mg AC BREAKFAST PO Last administered on 6/10/19at 06:58; Admin Dose 40 MG; Start 04/28/19 at 07:00 Ondansetron HCl (Zofran Inj) 4 mg Q6H PRN IV nausea,vomiting.; Start 04/28/19 at 06:00 Morphine Sulfate (morphine) 2 mg Q3HWA PRN IV pain and severe sob.; Start 04/28/19 at 06:00 Miscellaneous Information 1 ea NOTE XX ; Start 04/28/19 at 07:00 Glucose (Glutose) 15 gm Q15M PRN PO DECREASED GLUCOSE; Start 04/28/19 at 07:00 Glucose (Glutose) 22.5 gm Q15M PRN PO DECREASED GLUCOSE; Start 04/28/19 at 07:00 Dextrose (D50w Syringe) 25 ml Q15M PRN IV DECREASED GLUCOSE; Start 04/28/19 at 07:00 Dextrose (D50w Syringe) 50 ml Q15M PRN IV DECREASED GLUCOSE; Start 04/28/19 at 07:00 Glucagon (Glucagen) 1 mg Q15M PRN IM DECREASED GLUCOSE; Start 04/28/19 at 07:00 Glucose (Glutose) 15 gm Q15M PRN BUCCAL DECREASED GLUCOSE; Start 04/28/19 at 07:00 Insulin Aspart (Novolog Insulin Pen) (Adult SC Insulin - Moder... WITH MEALS BEDTIME SC Last administered on 05/01/19at 07:48; Admin Dose 6 UNIT; Start 04/28/19 at 17:35 Diagnostic Test (Pha) (Accu-Chek) 1 ea 02 XX ; Start 04/29/19 at 02:00 Insulin Glargine (Lantus) 12 units HS SC Last administered on 04/30/19at 21:14; Admin Dose 12 UNITS; Start 04/28/19 at 21:00 Azithromycin 250 ml @ 250 mls/hr Q24H IVPB Last administered on 04/30/19at 12:53; Admin Dose 250 MLS/HR; Start 04/30/19 at 13:00; Stop 05/02/19 at 12:59 Methylprednisolone Sodium Succinate (Solu-Medrol) 60 mg ONCE ONCE IV ; Start 05/01/19 at 12:30; Stop 05/01/19 at 12:31 Methylprednisolone Sodium Succinate (Solu-Medrol) 40 mg ONCE ONCE IM ; Start 05/02/19 at 12:30; Stop 05/02/19 at 12:31 Bumetanide (Bumex) 1 mg DAILY PO ; Start 05/02/19 at 18:00 ABDI WRIGHT May 01, 2019 11:04
[2019-05-01] MEDS: AZITHROMYCIN 500MG/NS (PMX) 250 ML IVPB SCH (11:58)
--- NOTE | 2019-05-01 12:00 | CONS ---
Assessment/Plan Assessment/Plan Hospital Course (Demo Recall) IMPRESSION: 1. Congestive heart failure, systolic, acute on chronic.-reasonable volume status 2. History of PTCA and stent placement to circumflex for ST elevation myocardial infarction in 12/2017.-neg trop x 3 3. Hypertension, reasonable control at this time. 4. Dyslipidemia. 5. History of ST-elevation myocardial infarction in 07/2018. 6. Anemia. 7. Leukocytosis. 8. Renal failure.--acute on chronic 9. PLeural effusion-s/p thracentesis 10. ? h/o cardiac arrythmia on amiodarone at baseline Recc: -Tele -serial ecg's -Continue BB/norvasc/hydralazine with well controlled BP -Contineu statin/zetia -Continue isordil -Continue asa/plavix/pletal and follow for any bleeding complications -Continue amiodarone and follow for any recurrent arrythmias -Continue Bumex now daily and follow volume status and creatnine closely -renal following Consultation Date/Type/Reason Admit Date/Time Apr 28, 2019 at 02:38 Initial Consult Date 04/29/19 Type of Consult Cardiology Reason for Consultation CHF Requesting Provider: ELBERT DIANA MD Date/Time of Note DATE: 05/01/19 TIME: 11:58 Exam/Review of Systems Vital Signs Vitals Vital Signs Date Temp Pulse Resp B/P (MAP) Pulse Ox O2 O2 Flow FiO2 Time Delivery Rate 05/01/19 93 08:02 05/01/19 97.9 18 130/59 95 07:18 (82) 04/29/19 21 20:00 04/29/19 Room Air 15:03 04/28/19 4.0 08:40 Intake and Output 04/30/19 04/30/19 05/01/19 1515:00 23:00 07:00 IntakeIntake Total 250 ml 700 ml 200 ml BalanceBalance 250 ml 700 ml 200 ml Exam Exam Review of Systems: CONSTITUTIONAL: No fevers, chills. PULMONARY: No sob CARDIOVASCULAR: No chest pain/palpitations GASTROINTESTINAL: No nausea/vomiting. GENITOURINARY: No hematuria/dysuria. MUSCULOSKELETAL: No myagias/arthalgias. PSYCHIATRIC: The patient denies depression. NEUROLOGIC: No weakness Constitutional: alert, oriented Psych: no complaints Head: normocephalic ENMT: mucosa pink and moist Neck: supple, jvd (9 cm water) Respiratory: diminished breath sounds (at bases/B) Cardiovascular: regular rate and rhythm Gastrointestinal: soft, non-tender Musculoskeletal: muscle tone (normal) Extremities: edema (none) Neurological: other (No focal deficits) Labs Result Diagram: 05/01/19 0513 05/01/19 0513 Results 24hrs Laboratory Tests Test 04/30/19 17:06 04/30/19 20:58 05/01/19 02:33 05/01/19 05:13 Bedside Glucose 293 H 471 *H 290 H White Blood Count 11.2 #H Red Blood Count 2.80 L Hemoglobin 7.8 L Hematocrit 24.9 L Mean Corpuscular 88.9 Volume Mean Corpuscular 27.9 L Hemoglobin Mean Corpuscular 31.3 L Hemoglobin Concent Red Cell Distribution 14.7 H Width Platelet Count 266 Mean Platelet Volume 9.8 Immature Granulocytes 0.800 H % Neutrophils % 92.7 H Lymphocytes % 5.2 L Monocytes % 1.2 Eosinophils % 0.0 Basophils % 0.1 Nucleated Red Blood 0.0 Cells % Immature Granulocytes 0.090 H # Neutrophils # 10.4 H Lymphocytes # 0.6 L Monocytes # 0.1 L Eosinophils # 0.0 Basophils # 0.0 Nucleated Red Blood 0.0 Cells # Sodium Level 141 Potassium Level 4.2 Chloride Level 107 Carbon Dioxide Level 24 Anion Gap 10 Blood Urea Nitrogen 40 H Creatinine 3.28 H Est Glomerular 19 L Filtrat Rate mL/min Glucose Level 239 H Calcium Level 9.0 Phosphorus Level 3.3 Magnesium Level 2.2 Total Bilirubin 0.4 Direct Bilirubin 0.00 Indirect Bilirubin 0.4 Aspartate Amino 18 Transf (AST/SGOT) Alanine 37 Aminotransferase (ALT /SGPT) Alkaline Phosphatase 68 Total Protein 6.5 Albumin 3.5 Globulin 3.00 Albumin/Globulin 1.16 Ratio Test 05/01/19 07:47 Bedside Glucose 239 H Medications Medications Current Medications Amiodarone HCl (Cordarone) 200 mg DAILY PO Last administered on 05/01/19at 07:51; Admin Dose 200 MG; Start 04/28/19 at 09:00 Amitriptyline HCl (Elavil) 25 mg QHS PO Last administered on 04/30/19at 21:07; Admin Dose 25 MG; Start 04/28/19 at 21:00 Amlodipine Besylate (Norvasc) 2.5 mg DAILY PO Last administered on 05/01/19 07:51; Admin Dose 2.5 MG; Start 04/28/19 at 09:00 Aspirin (Halfprin) 81 mg DAILY PO Last administered on 05/01/19 07:50; Admin Dose 81 MG; Start 04/28/19 at 09:00 Atorvastatin Calcium (Lipitor) 80 mg QHS PO Last administered on 04/30/19 21:05; Admin Dose 80 MG; Start 04/28/19 at 21:00 Carvedilol (Coreg) 25 mg BID PO Last administered on 05/01/19 07:50; Admin Dose 25 MG; Start 04/28/19 at 09:00 Cilostazol (Pletal) 100 mg BID PO Last administered on 05/01/19 07:50; Admin Dose 100 MG; Start 04/28/19 at 09:00 Clopidogrel Bisulfate (plaVIX) 75 mg DAILY PO Last administered on 05/01/19 07:51; Admin Dose 75 MG; Start 04/28/19 at 09:00 Duloxetine HCl (Cymbalta) 60 mg DAILY PO Last administered on 05/01/19 07:50; Admin Dose 60 MG; Start 04/28/19 at 09:00 EZETIMIBE (Zetia) 10 mg HS PO Last administered on 04/30/19 21:06; Admin Dose 10 MG; Start 04/28/19 at 21:00 Gabapentin (Neurontin) 300 mg TID PO Last administered on 05/01/19 07:51; Admin Dose 300 MG; Start 04/28/19 at 09:00 Hydralazine HCl (Apresoline) 50 mg BID PO Last administered on 05/01/19 07:50; Admin Dose 50 MG; Start 04/28/19 at 09:00 Insulin Aspart (Novolog Insulin Pen) 6 unit WITH MEALS SC Last administered on 05/01/19 07:49; Admin Dose 6 UNIT; Start 04/28/19 at 07:35 Isosorbide Dinitrate (Isordil) 10 mg TID PO Last administered on 05/01/19 07:51; Admin Dose 10 MG; Start 04/28/19 at 09:00 Amylase/Lipase/ Protease (Creon ([id number])) 1 cap WITH MEALS PO Last administered on 05/01/19at 07:50; Admin Dose 1 CAP; Start 04/28/19 at 07:35 Pantoprazole (Protonix Tab) 40 mg AC BREAKFAST PO Last administered on 05/01/19at 06:58; Admin Dose 40 MG; Start 04/28/19 at 07:00 Ondansetron HCl (Zofran Inj) 4 mg Q6H PRN IV nausea,vomiting.; Start 04/28/19 at 06:00 Morphine Sulfate (morphine) 2 mg Q3HWA PRN IV pain and severe sob.; Start 04/28/19 at 06:00 Miscellaneous Information 1 ea NOTE XX ; Start 04/28/19 at 07:00 Glucose (Glutose) 15 gm Q15M PRN PO DECREASED GLUCOSE; Start 04/28/19 at 07:00 Glucose (Glutose) 22.5 gm Q15M PRN PO DECREASED GLUCOSE; Start 04/28/19 at 07:00 Dextrose (D50w Syringe) 25 ml Q15M PRN IV DECREASED GLUCOSE; Start 04/28/19 at 07:00 Dextrose (D50w Syringe) 50 ml Q15M PRN IV DECREASED GLUCOSE; Start 04/28/19 at 07:00 Glucagon (Glucagen) 1 mg Q15M PRN IM DECREASED GLUCOSE; Start 04/28/19 at 07:00 Glucose (Glutose) 15 gm Q15M PRN BUCCAL DECREASED GLUCOSE; Start 04/28/19 at 07:00 Insulin Aspart (Novolog Insulin Pen) (Adult SC Insulin - Moder... WITH MEALS BEDTIME SC Last administered on 05/01/19at 07:48; Admin Dose 6 UNIT; Start 04/28/19 at 17:35 Diagnostic Test (Pha) (Accu-Chek) 1 ea 02 XX ; Start 04/29/19 at 02:00 Insulin Glargine (Lantus) 12 units HS SC Last administered on 04/30/19at 21:14; Admin Dose 12 UNITS; Start 04/28/19 at 21:00 Azithromycin 250 ml @ 250 mls/hr Q24H IVPB Last administered on 04/30/19at 12:53; Admin Dose 250 MLS/HR; Start 04/30/19 at 13:00; Stop 05/02/19 at 12:59 Methylprednisolone Sodium Succinate (Solu-Medrol) 60 mg ONCE ONCE IV ; Start 05/01/19 at 12:30; Stop 05/01/19 at 12:31 Methylprednisolone Sodium Succinate (Solu-Medrol) 40 mg ONCE ONCE IM ; Start 05/02/19 at 12:30; Stop 05/02/19 at 12:31 Bumetanide (Bumex) 1 mg DAILY PO ; Start 05/02/19 at 18:00 SRINIVAS SAWYER May 01, 2019 12:00
[2019-05-01] MEDS ORDERED: METHYLPREDNISOLONE 125 MG INJ IV ONE (12:30)
[2019-05-01] MEDS: EZETIMIBE 10 MG TAB PO SCH (21:28)
[2019-05-01] MEDS: AMITRIPTYLINE 25 MG TAB PO SCH (21:29)
[2019-05-01] MEDS: ATORVASTATIN 80 MG TAB PO SCH (21:29)
[2019-05-01] MEDS: INSULIN GLARGINE [LANTus] (100 UNITS/ML) SYG SC SCH (21:49)
[2019-05-02] VITALS (8 sets, daily range): BP systolic 109–123; BP diastolic 56–62; PULSE 84–102; RESP 18–20
--- NOTE | 2019-05-02 00:20 | PDOCDIS ---
Discharge Instructions DIAGNOSIS Discharge Diagnosis see the progress note. CONDITION [id number] Patient Condition: [id number] Guarded HOME CARE INSTRUCTIONS: [id number] Diet Instructions: [id number] Bathing Restrictions: [id number] Shower FOLLOW UP/APPOINTMENTS Follow-up Plan in 3 days to in [address] Elizondo in one week to dr. Elder in 10 days to SCHOOL/WORK RELEASE May return to School/Work with: With Restrictions ELBERT DIANA MD May 02, 2019 00:20
[2019-05-02] MEDS: ACCUCHECK AT 2AM (Patients on SS coverage) XX SCH (02:00)
[2019-05-02] MEDS: PANTOPRAZOLE (EC) 40 MG TAB PO SCH (07:10)
[2019-05-02] MEDS: CREON (24K-76K-120K) 1 CAP PO SCH ×2 (08:15→12:43)
[2019-05-02] MEDS: ASPIRIN (EC) 81 MG TAB PO SCH (08:15)
[2019-05-02] MEDS: AMLODIPINE 2.5 MG TAB PO SCH (08:15)
[2019-05-02] MEDS: CILOSTAZOL 100 MG TAB PO SCH (08:16)
[2019-05-02] MEDS: GABAPENTIN 300 MG CAP PO SCH (08:16)
[2019-05-02] MEDS: ISOSORBIDE DINITRATE 10 MG TAB PO SCH (08:16)
[2019-05-02] MEDS: DULOXETINE 30 MG CAP DR PO SCH (08:16)
[2019-05-02] MEDS: CLOPIDOGREL 75 MG TAB PO SCH (08:16)
[2019-05-02] MEDS: AMIODARONE 200 MG TAB PO SCH (08:17)
[2019-05-02] MEDS: INSULIN ASPART [NOVOLOG] 3 ML PEN SC SCH ×2 (08:29→11:49)
[2019-05-02] MEDS: Insulin NOVOLOG SS MODERATE Algorithm (SS with meals and bedtime) SC SCH ×2 (08:29→11:48)
--- NOTE | 2019-05-02 08:45 | PN ---
DATE: 05/02/2019 SUBJECTIVE: The patient is stable, no events overnight. No fevers, chills, nausea, vomiting. OBJECTIVE: VITAL SIGNS: Blood pressure is 123/58, pulse 87, respiration 18, temperature 97.7. HEENT: Head is normocephalic. NECK: Supple. HEART: Regular rate. LUNGS: Show diminished breath sounds at the base. ABDOMEN: Soft, nontender to palpation without rebound or guarding. EXTREMITIES: Negative for clubbing, cyanosis, no edema. DERMATOLOGIC: No rashes. MUSCULOSKELETAL: No joint effusion. NEUROLOGIC: No change in exam. MEDICATIONS: The patient's medications have been reviewed. LABORATORY DATA: Has been reviewed. IMAGING STUDIES: Have been reviewed. ASSESSMENT AND PLAN: 1. Nonoliguric acute kidney injury on top of chronic kidney disease stage IV with previous baseline creatinine around 2.5 to 3 mg/dL. Etiology of acute kidney injury is secondary to hemodynamics, diur etics. Patient's renal function continues to decline, likely due to diuretic therapy. So hold Bumex at this time. We will monitor renal function. Once renal function has stabilized, would reintroduc e low dose diuretic therapy. 2. Hypertension. Continue current blood pressure regimen. 3. Acute decompensated heart failure. The patient appears clinically euvolemic on exam. Will adjus t diuretic therapy as stated above, monitor closely. 4. Acute hypoxemic respiratory secondary to pulmonary edema and pleural effusions, improving. Chelsey nue to monitor. 5. Pleural effusion. The patient is status post thoracentesis. 6. Anemia. Monitor hemoglobin and hematocrit levels. 7. Mineral bone disorder. Monitor calcium and phosphorus levels. 8. Coronary artery disease. Continue medical management. 9. Dyslipidemia. Continue statin therapy. 10. Diabetes. Continue current insulin regimen. 11. History of ETOH abuse and liver disease. Dictated By: LILY VASQUEZ DO NR/NTS Conf#: [id number] DID#: [id number] CC: ELBERT DIANA MD; RONA TOUSSAINT MD;*EndCC*
--- NOTE | 2019-05-02 09:08 | CONS ---
Consult Date/Type/Reason Admit Date/Time Apr 28, 2019 at 02:38 Initial Consult Date Requesting Provider: ELBERT DIANA MD Date/Time of Note DATE: 05/02/19 TIME: 09:01 Subjective NO acute events - pt comfortable - BP in good range - euvolemic by exam. ROS: No fever, no chills, no nausea, no vomiting, no diarrhea/constipation No recent weight changes No chest pain, no PND, no orthopnea No dizziness, blurred vision No thirst, no heat or cold intolerance Objective Vitals Vital Signs Date Temp Pulse Resp B/P (MAP) Pulse Ox O2 O2 Flow FiO2 Time Delivery Rate 05/02/19 87 08:01 05/02/19 97.7 18 123/58 93 07:03 (79) 04/29/19 21 20:00 04/29/19 Room Air 15:03 04/28/19 4.0 08:40 Intake and Output 05/01/19 05/01/19 05/02/19 1515:00 23:00 07:00 IntakeIntake Total 550 ml 350 ml OutputOutput Total 4 ml BalanceBalance 546 ml 350 ml Exam General: WN/WD/NAD, AOx 3 HEENT: Unicetric/atraumatic/EOMI (follows commands) NECK: JVD elevated, no thyromegaly Lymph: no lymphadenopathy HEART: regular with no S3, II/ systolic murmur at apex LUNGS: Coarse sounds ABD: soft, NT, ND, +BS : Intact Neuro: non focal SKIN: chronic changes EXT: trace edema Results/Medications Result Diagram: 05/02/19 0454 05/02/19 0454 Results 24 hrs Laboratory Tests Test 05/01/19 11:59 05/01/19 16:40 05/01/19 21:26 05/02/19 02:35 Bedside Glucose 260 H 308 H 321 H 227 H Test 05/02/19 04:54 05/02/19 08:11 White Blood Count 17.6 #H Red Blood Count 2.72 L Hemoglobin 7.6 L Hematocrit 24.2 L Mean Corpuscular 89.0 Volume Mean Corpuscular 27.9 L Hemoglobin Mean Corpuscular 31.4 L Hemoglobin Concent Red Cell 15.3 H Distribution Width Platelet Count 283 Mean Platelet Volume 9.7 Immature 1.000 H Granulocytes % Neutrophils % 92.1 H Lymphocytes % 3.8 L Monocytes % 3.0 Eosinophils % 0.0 Basophils % 0.1 Nucleated Red Blood 0.0 Cells % Immature 0.180 H Granulocytes # Neutrophils # 16.2 H Lymphocytes # 0.7 L Monocytes # 0.5 Eosinophils # 0.0 Basophils # 0.0 Nucleated Red Blood 0.0 Cells # Sodium Level 142 Potassium Level 4.3 Chloride Level 108 Carbon Dioxide Level 24 Anion Gap 10 Blood Urea Nitrogen 52 H Creatinine 3.56 H Est Glomerular 17 L Filtrat Rate mL/min Glucose Level 190 Calcium Level 9.2 Phosphorus Level 4.6 Magnesium Level 2.4 Bedside Glucose 193 Home Meds Reported Medications Amiodarone Hcl* (Amiodarone Hcl*) 200 Mg Tablet, 200 MG PO DAILY, #30 TAB 01/09/19 Clopidogrel Bisulfate (Clopidogrel) 75 Mg Tablet, 75 MG PO DAILY, #30 TAB 01/09/19 Atorvastatin* (Atorvastatin*) 80 Mg Tablet, 80 MG PO QHS, #30 TAB 01/09/19 Pantoprazole* (Pantoprazole*) 40 Mg Tablet.dr, 40 MG PO AC BREAKFAST, TAB 01/09/19 Aspirin* (Aspirin* EC) 81 Mg Tablet.dr, 81 MG PO DAILY, TAB 01/09/19 Hydralazine Hcl* (Apresoline*) 50 Mg Tab, 50 MG PO BID, #120 TAB 01/09/19 Cilostazol* (Cilostazol*) 100 Mg Tablet, 100 MG PO BID, TAB 01/09/19 Ticagrelor* (Brilinta*) 90 Mg Tablet, 90 MG PO Q12, TAB 01/09/19 Insulin Aspart* (Novolog Insulin Pen*) 100 Unit/Ml Soln, 0 SC .SLIDING SCALE AC, EA 01/09/19 Carvedilol* (Carvedilol*) 25 Mg Tablet, 25 MG PO BID, #60 TAB 01/09/19 Amlodipine Besylate* (Amlodipine Besylate*) 2.5 Mg Tablet, 2.5 MG PO DAILY, #30 TAB 01/09/19 Isosorbide Dinitrate* (Isordil*) 10 Mg Tablet, 10 MG PO TID, TAB 01/09/19 Ezetimibe* (Zetia*) 10 Mg Tablet, 10 MG PO HS, TAB 01/09/19 Spironolactone* (Aldactone*) 25 Mg Tablet, 25 MG PO BID, #60 TAB 01/09/19 Fluticasone/Umeclidin/Vilanter (Trelegy Ellipta 100-62.5-25) 1 Each Blst.w.dev, 1 EACH IH DAILY 01/09/19 Dapagliflozin Propanediol (Farxiga) 5 Mg Tablet, 5 MG PO DAILY, #30 TAB 01/09/19 Linagliptin/Metformin HCl (Jentadueto Xr 2.5 mg-1,000 mg) 1 Each Tab.bp.24h, 1 EACH PO BID, TAB 01/09/19 Duloxetine Hcl* (Duloxetine Hcl*) 60 Mg Capsule.dr, 60 MG PO DAILY, #30 CAP 01/09/19 Amitriptyline Hcl* (Amitriptyline Hcl*) 25 Mg Tablet, 25 MG PO QHS, #30 TAB 01/09/19 Losartan-Hydrochlorothiazide (Losartan-HCTZ) 100-25 Mg Tab, 1 TAB PO DAILY, TAB 01/09/19 Gabapentin* (Gabapentin*) 300 Mg Capsule, 300 MG PO TID, #90 CAP 01/09/19 Ibuprofen* (Ibuprofen*) 600 Mg Tablet, 600 MG PO BID PRN for PAIN AND/OR INFLAMMATION, TAB 01/09/19 Bumetanide* (Bumetanide*) 1 Mg Tablet, 1 MG PO DAILY, TAB 01/09/19 Propranolol Hcl* (Propranolol Hcl*) 20 Mg Tablet, 20 MG PO DAILY, TAB 01/09/19 Ydhnrl-Xbbpyyri-Gfbivxo* (Ladarius GUPTA* 24,000) 24,000 L-76,000-120,000 Unit Capsule.dr, 1 CAP PO WITH MEALS, CAP 01/09/19 Rosuvastatin Calcium* (Crestor*) 40 Mg Tablet, 40 MG PO QHS, #30 TAB 01/09/19 Icosapent Ethyl (VASCEPA) 1 Gm Capsule, 1 GM PO QID, CAP 01/09/19 Medications Current Medications Amiodarone HCl (Cordarone) 200 mg DAILY PO Last administered on 05/02/19at 08 :17; Admin Dose 200 MG; Start 04/28/19 at 09:00 Amitriptyline HCl (Elavil) 25 mg QHS PO Last administered on 05/01/19at 21:29; Admin Dose 25 MG; Start 04/28/19 at 21:00 Amlodipine Besylate (Norvasc) 2.5 mg DAILY PO Last administered on 05/02/19 08:15; Admin Dose 2.5 MG; Start 04/28/19 at 09:00 Aspirin (Halfprin) 81 mg DAILY PO Last administered on 05/02/19 08:15; Admin Dose 81 MG; Start 04/28/19 at 09:00 Atorvastatin Calcium (Lipitor) 80 mg QHS PO Last administered on 05/01/19 21:29; Admin Dose 80 MG; Start 04/28/19 at 21:00 Carvedilol (Coreg) 25 mg BID PO Last administered on 05/02/19 08:16; Admin Dose 25 MG; Start 04/28/19 at 09:00 Cilostazol (Pletal) 100 mg BID PO Last administered on 05/02/19 08:16; Admin Dose 100 MG; Start 04/28/19 at 09:00 Clopidogrel Bisulfate (plaVIX) 75 mg DAILY PO Last administered on 05/02/19 08:16; Admin Dose 75 MG; Start 04/28/19 at 09:00 Duloxetine HCl (Cymbalta) 60 mg DAILY PO Last administered on 05/02/19 08:16; Admin Dose 60 MG; Start 04/28/19 at 09:00 EZETIMIBE (Zetia) 10 mg HS PO Last administered on 05/01/19 21:28; Admin Dose 10 MG; Start 04/28/19 at 21:00 Gabapentin (Neurontin) 300 mg TID PO Last administered on 05/02/19 08:16; Admin Dose 300 MG; Start 04/28/19 at 09:00 Hydralazine HCl (Apresoline) 50 mg BID PO Last administered on 05/02/19 08:16; Admin Dose 50 MG; Start 04/28/19 at 09:00 Insulin Aspart (Novolog Insulin Pen) 6 unit WITH MEALS SC Last administered on 05/02/19 08:29; Admin Dose 6 UNIT; Start 04/28/19 at 07:35 Isosorbide Dinitrate (Isordil) 10 mg TID PO Last administered on 05/02/19 08:16; Admin Dose 10 MG; Start 04/28/19 at 09:00 Amylase/Lipase/ Protease (Creon ([id number])) 1 cap WITH MEALS PO Last admin istered on 05/02/19at 08:15; Admin Dose 1 CAP; Start 04/28/19 at 07:35 Pantoprazole (Protonix Tab) 40 mg AC BREAKFAST PO Last administered on 05/02/19at 07:10; Admin Dose 40 MG; Start 04/28/19 at 07:00 Ondansetron HCl (Zofran Inj) 4 mg Q6H PRN IV nausea,vomiting.; Start 04/28/19 at 06:00 Morphine Sulfate (morphine) 2 mg Q3HWA PRN IV pain and severe sob.; Start 04/28/19 at 06:00 Miscellaneous Information 1 ea NOTE XX ; Start 04/28/19 at 07:00 Glucose (Glutose) 15 gm Q15M PRN PO DECREASED GLUCOSE; Start 04/28/19 at 07:00 Glucose (Glutose) 22.5 gm Q15M PRN PO DECREASED GLUCOSE; Start 04/28/19 at 07:00 Dextrose (D50w Syringe) 25 ml Q15M PRN IV DECREASED GLUCOSE; Start 04/28/19 at 07:00 Dextrose (D50w Syringe) 50 ml Q15M PRN IV DECREASED GLUCOSE; Start 04/28/19 at 07:00 Glucagon (Glucagen) 1 mg Q15M PRN IM DECREASED GLUCOSE; Start 04/28/19 at 07:00 Glucose (Glutose) 15 gm Q15M PRN BUCCAL DECREASED GLUCOSE; Start 04/28/19 at 07:00 Insulin Aspart (Novolog Insulin Pen) (Adult SC Insulin - Moder... WITH MEALS BEDTIME SC Last administered on 05/02/19at 08:29; Admin Dose 4 UNIT; Start 04/28/19 at 17:35 Diagnostic Test (Pha) (Accu-Chek) 1 ea 02 XX Last administered on 05/02/19at 02:00; Admin Dose 1 EA; Start 04/29/19 at 02:00 Insulin Glargine (Lantus) 12 units HS SC Last administered on 05/01/19at 21:49; Admin Dose 12 UNITS; Start 04/28/19 at 21:00 Azithromycin 250 ml @ 250 mls/hr Q24H IVPB Last administered on 05/01/19at 11:58; Admin Dose 250 MLS/HR; Start 04/30/19 at 13:00; Stop 05/02/19 at 12:59 Methylprednisolone Sodium Succinate (Solu-Medrol) 40 mg ONCE ONCE IM ; Start 05/02/19 at 12:30; Stop 05/02/19 at 12:31 Assessment/Plan Hospital Course (Demo Recall) 1. Congestive heart failure, systolic, acute on chronic.- reasonable volume status - better fluid status now. 2. History of PTCA and stent placement to circumflex for ST elevation myocardi al infarction in 12/2017.-neg trop x 3, con't med rx. 3. Hypertension, reasonable control at this time - BP well controlled now. 4. Dyslipidemia. 5. History of ST-elevation myocardial infarction in 07/2018 - treated. 6. Anemia- H/H stable. 7. Leukocytosis. 8. Renal failure.--acute on chronic, better now. 9. PLeural effusion-s/p thracentesis 10. ? h/o cardiac arrythmia on amiodarone at baseline DEON WINTERS MD May 02, 2019 09:08
[2019-05-02] MEDS ORDERED: METHYLPREDNISOLONE 40 MG INJ IM ONE (12:30)
[2019-05-02] MEDS ORDERED: BUMETANIDE 1 MG TAB PO SCH (18:00)
== END 2019-05-02 13:13 | disposition home or self-care (01) | DRG 291 ==
LOC: E/R 00:58 → ICU 02:38 → 6WM 04-29 00:46
PROVIDERS: ADMIT Family Medicine; ATTEND Family Medicine
PROC: 0W993ZX Drainage of Right Pleural Cavity, Percutaneous Approach, Diagnostic (ICD-10-PCS; principal; 2019-04-28)
DX: I13.0 Hypertensive heart and chronic kidney disease with heart failure and stage 1 through stage 4 chronic kidney disease, or unspecified chronic kidney disease (principal); I50.23 Acute on chronic systolic (congestive) heart failure; N17.0 Acute kidney failure with tubular necrosis; J96.01 Acute respiratory failure with hypoxia; J96.02 Acute respiratory failure with hypercapnia; E87.2 Acidosis; G93.1 Anoxic brain damage, not elsewhere classified; J90 Pleural effusion, not elsewhere classified; N18.4 Chronic kidney disease, stage 4 (severe); R65.10 Systemic inflammatory response syndrome (SIRS) of non-infectious origin without acute organ dysfunction; J44.1 Chronic obstructive pulmonary disease with (acute) exacerbation; N39.0 Urinary tract infection, site not specified; K70.30 Alcoholic cirrhosis of liver without ascites; E78.5 Hyperlipidemia, unspecified; N40.0 Benign prostatic hyperplasia without lower urinary tract symptoms; K21.9 Gastro-esophageal reflux disease without esophagitis; I42.9 Cardiomyopathy, unspecified; I16.0 Hypertensive urgency; Z79.4 Long term (current) use of insulin; E11.51 Type 2 diabetes mellitus with diabetic peripheral angiopathy without gangrene; E11.22 Type 2 diabetes mellitus with diabetic chronic kidney disease; E83.9 Disorder of mineral metabolism, unspecified; Z95.810 Presence of automatic (implantable) cardiac defibrillator; F10.20 Alcohol dependence, uncomplicated; Z95.5 Presence of coronary angioplasty implant and graft; I25.2 Old myocardial infarction; Z87.891 Personal history of nicotine dependence; Z86.74 Personal history of sudden cardiac arrest; R41.3 Other amnesia; I25.119 Atherosclerotic heart disease of native coronary artery with unspecified angina pectoris; D63.1 Anemia in chronic kidney disease
CPT/HCPCS: 36415; 36600; 71045; 76604; 76705; 76942; 80048; 80053; 81001; 81003; 82042; 82043; 82550; 82553; 82803; 82962; 83036; 83735; 83880; 83986; 84100; 84155; 84300; 84484; 85025; 85610; 85730; 87081; 88104; 88305; 89051; 93005; 93306; 94660; 96374; 96375; J0456; J1815; J1940; J2270; J2405; J2920; J2930